=== PATIENT | female | born 1980 | race Caucasian/White ===

== ENCOUNTER 2016-12-31 05:10 | Day surgery (SDC) | payer MEDICAID ==
[2016-12-27 11:30] LABS: HEMOGLOBIN 13.7 g/dL (12.0-15.5); HGB HCT DIFFERENCE 0.1; MEAN CORPUSCULAR HEMOGLOBIN 28.6 pg (27.0-33.4); MEAN CORPUSCULAR HGB CONC 33.3 g/dL (32.0-36.0); MEAN CORPUSCULAR VOLUME 86 fl (80-97); RED BLOOD COUNT 4.78 10^6/uL (3.72-5.28); RED CELL DISTRIBUTION WIDTH 12.9 % (11.5-14.0); WHITE BLOOD COUNT 7.5 10^3/uL (4.0-10.5)
[2016-12-27 11:36] LABS: APPEARANCE,URINE CLEAR; BILIRUBIN,URINE NEGATIVE (NEGATIVE); GLUCOSE, URINE 50 mg/dL (NEGATIVE); KETONES,URINE NEGATIVE (NEGATIVE); LEUKOCYTE ESTERASE,URINE TRACE (NEGATIVE); NITRITE,URINE NEGATIVE (NEGATIVE); PROTEIN,URINE NEGATIVE (NEGATIVE); URINE SPECIFIC GRAVITY 1.024; UROBILINOGEN,URINE NEGATIVE mg/dL (<2.0)
[2016-12-27 11:46] LABS: ANION GAP 14 (5-19); BLOOD UREA NITROGEN 15 mg/dL (7-20); CALCIUM 9.2 mg/dL (8.4-10.2); CARBON DIOXIDE 22 mmol/L (22-30); CHLORIDE 105 mmol/L (98-107); CREATININE RESULT 0.44 mg/dL (0.52-1.25); GLUCOSE 146 mg/dL (75-110); POTASSIUM 4.2 mmol/L (3.6-5.0); SODIUM 140.5 mmol/L (137-145)
--- NOTE | 2016-12-28 00:06 | EKG REPORT ---
SEVERITY:- BORDERLINE ECG - SINUS RHYTHM LVH BY VOLTAGE : Confirmed by: Edmundo Morgan 28-Dec-2016 00:05:08
[~2016-12-31 05:10] MED LIST: CEFAZOLIN 2 GM/D5W RTU 2 GM/50 ML RTUPB IV PRN; LACTATED RINGERS 1000 ML IV PRN; LIDOCAINE 0.5% INJ-PF (5 MG/ML) 50 ML SDV SUBCUT PRN
[2016-12-31] MEDS ORDERED: BUPIVACAINE HCL 0.5 % INJ/PF 30 ML SDV ONE (06:28)
[2016-12-31] MEDS ORDERED: LIDOCAINE 1% INJ-PF (10 MG/ML) 30 ML SDV ONE (06:28)
[2016-12-31] MEDS ORDERED: MIDAZOLAM 2 MG/2 ML INJ ONE (07:22)
[2016-12-31] MEDS ORDERED: FENTANYL CITRATE INJ/PF 100 MCG/2 ML AMPUL ONE (07:22)
[2016-12-31] MEDS ORDERED: DEXMEDETOMIDINE INJ 80 MCG/20 ML VIAL IV ONE (07:22)
[2016-12-31] MEDS ORDERED: PROPOFOL INJ 200 MG/20 ML VIAL IV ONE (07:22)
[2016-12-31] MEDS ORDERED: ONDANSETRON HCL INJ/PF 4 MG/2 ML SDV IV PRN (07:57)
[2016-12-31] MEDS ORDERED: HYDROCODONE/ACETAMINOPHEN 5-325 MG TABLET PO PRN (07:57)
--- NOTE | 2016-12-31 07:57 | Operative Report ---
Operative Report DATE OF SURGERY: 12/31/16 PREOPERATIVE DIAGNOSIS: Left Trigger Thumb POSTOPERATIVE DIAGNOSIS: Same OPERATION: Left Thumb A1 Diane Release SURGEON: ELSA FERRARI ANESTHESIA: LMAC COMPLICATIONS: None ESTIMATED BLOOD LOSS: Minimal PROCEDURE: Indication for above procedure: 36-year-old female presented to my office with debilitating pain in her left thumb at that point we discussed treatment options including operative versus nonoperative intervention. Given her diabetes she is at higher risk of recurrence after corticosteroid injection however she is also higher risk for postoperative complications including infection. Patient understood these increased risks given her medical comorbidities and elected to proceed with operative intervention. Procedure In Detail: Patient was seen and evaluated in the preoperative holding area. The LEFT upper extremity was initialized and marked. Patient received 2g of Ancef IV for bacterial prophylaxis. Patient was taken back to the operative room where transferred to the operative table. Once they were adequately anesthetized a nonsterile tourniquet was placed on the upper extremity. A surgical team debriefing was performed ensuring all instrumentation was available, the surgical procedure was discussed with possible concerns reviewed. A digital block was performed utilizing 10 mL 50:50 mixture of 0.5% Marcaine and 1% lidocaine without epinephrine. The upper extremity was prepped with chlorhexidine and alcohol and draped in a sterile fashion. A timeout was done identifying correct patient, procedure and extremity everyone in attendance agree with this and verbalized no concerns. The extremity was exsanguinated the tourniquet was inflated to 200 mmHg. Longitudinal skin incision was made centered over the A1 diane of the thumb finger. The radial neurovascular bundle was identified and retracted from the wound. The A1 diane was identified and incised. The A1 diane was released to the level of the oblique diane but not through the oblique diane. The palmar aponeurotic diane was released proximal to the A1 diane. 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 The wound was then copiously irrigated with normal saline. Skin was closed with interrupted 4-0 nylon suture. Wound was dressed with Xeroform and a soft dressing. Sponge counts, instrument counts, needle counts counts were correct. Patient was then awoken from anesthesia. Transferred from the operating room table to the operating room stretcher. There was no intraoperative complications patient tolerated procedure well stable to PACU. Postoperative plan: Patient will follow-up as scheduled for wound check. They will call with any questions or concerns.
--- NOTE | 2016-12-31 07:57 | PDOC DISCHARGE SUMMARY ---
Discharge Summary (SDC) - Discharge Final Diagnosis: Left Trigger Thumb Date of Surgery: 12/31/16 Discharge Date: 12/31/16 Condition: Good Treatment or Instructions: Schedule Follow Up w/ Dr. Joseph Hall @ [facility] for Surgery to be seen in 10-14 days or as scheduled [place]: [place]: [place]: May remove dressing on postop day #3 keep incision covered and dry. Ice and elevate May begin finger range of motion attempting to make full fist. Stool softener of choice when on pain medication. Prescriptions: Hydrocodone/Acetaminophen [Alpha 5-325 Tablet] 1 each PO Q6 PRN #20 tablet PRN Reason: Discharge Diet: As Tolerated Respiratory Treatments at Home: Deep Breathing/Coughing Discharge Activity: No Lifting Over 10 Pounds, No Lifting/Push/Pulling Report the Following to Your Physician Immediately: Increase in Pain, Fever over 101 Degrees, Unusual Bleeding, Redness, Swelling, Warmth, Increased Soreness, Drainage-Foul Smelling
[2016-12-31 09:58] VITALS: BP 116/78
[2016-12-31] MEDS ORDERED: ONDANSETRON HCL INJ/PF 4 MG/2 ML SDV ONE (16:11)
[2016-12-31] MEDS ORDERED: LIDOCAINE 2% INJ-PF (20 MG/ML) 10 ML AMPUL ONE (16:11)
[2016-12-31] MEDS ORDERED: GLYCOPYRROLATE INJ 0.4 MG/2 ML VIAL ONE (16:11)
== END 2016-12-31 10:15 | disposition home or self-care (01) ==
LOC: OROUT 05:10
PROVIDERS: ATTEND Orthopaedic Surgery
PROC: 0LN80ZZ Release Left Hand Tendon, Open Approach (ICD-10-PCS; principal; 2016-12-31 07:15)
DX: M65.312 Trigger thumb, left thumb (principal); I10 Essential (primary) hypertension; E11.9 Type 2 diabetes mellitus without complications; E78.00 Pure hypercholesterolemia, unspecified; E66.9 Obesity, unspecified; Z87.891 Personal history of nicotine dependence; Z91.040 Latex allergy status; Z88.8 Allergy status to other drugs, medicaments and biological substances; Z79.82 Long term (current) use of aspirin; Z79.899 Other long term (current) drug therapy; Z86.73 Personal history of transient ischemic attack (TIA), and cerebral infarction without residual deficits; Z68.42 Body mass index [BMI] 45.0-49.9, adult
CPT/HCPCS: 93005; 36415; 82962; 85027; 81025; 80048; 81001; 93010; 26055; J2250; J3010; J3490 ×4; J2405; J2704; J0690; 1810

== ENCOUNTER → 2017-02-15 | Day surgery (SDC) | payer MEDICAID | LOC: RAD 14:41 | PROVIDERS: ATTEND Orthopaedic Surgery | PROC: BP0MZZZ Plain Radiography of Left Wrist (ICD-10-PCS; principal; 2017-02-15) | DX: M25.539 Pain in unspecified wrist (principal) | CPT/HCPCS: 73222; 73115; 77002; A9576 ==

== ENCOUNTER 2017-03-22 06:45 | Day surgery (SDC) | payer MEDICAID ==
[2017-03-15 10:17] LABS: ABSOLUTE BASOPHILS # (AUTO) 0.1 10^3/uL (0.0-0.2); ABSOLUTE EOSINOPHILS # (AUTO) 0.1 10^3/uL (0.0-0.6); ABSOLUTE LYMPHOCYTES (AUTO) 2.2 10^3/uL (0.5-4.7); ABSOLUTE MONOCYTES (AUTO) 0.4 10^3/uL (0.1-1.4); ABSOLUTE NEUT (AUTO) 5.8 10^3/uL (1.7-8.2); BASOPHILS % (AUTO) 0.9 % (0-2); EOSINOPHILS % (AUTO) 1.3 % (0-6); HEMATOCRIT 40.7 % (36.0-47.0); HEMOGLOBIN 13.7 g/dL (12.0-15.5); HGB HCT DIFFERENCE 0.4; LYMPHOCYTES % (AUTO) 25.7 % (13-45); MEAN CORPUSCULAR HEMOGLOBIN 28.3 pg (27.0-33.4); MEAN CORPUSCULAR HGB CONC 33.6 g/dL (32.0-36.0); MEAN CORPUSCULAR VOLUME 84 fl (80-97); MONOCYTES % (AUTO) 4.2 % (3-13); RED BLOOD COUNT 4.84 10^6/uL (3.72-5.28); RED CELL DISTRIBUTION WIDTH 13.5 % (11.5-14.0); SEGMENTED NEUTROPHILS % (AUTO) 67.9 % (42-78); WHITE BLOOD COUNT 8.6 10^3/uL (4.0-10.5)
[2017-03-15 10:26] LABS: APPEARANCE,URINE CLEAR; BILIRUBIN,URINE NEGATIVE (NEGATIVE); GLUCOSE, URINE >=500 mg/dL (NEGATIVE); KETONES,URINE TRACE mg/dL (NEGATIVE); LEUKOCYTE ESTERASE,URINE SMALL (NEGATIVE); NITRITE,URINE NEGATIVE (NEGATIVE); PROTEIN,URINE NEGATIVE (NEGATIVE); URINE SPECIFIC GRAVITY 1.029
[2017-03-15 10:42] LABS: ANION GAP 12 (5-19); BLOOD UREA NITROGEN 14 mg/dL (7-20); CALCIUM 9.5 mg/dL (8.4-10.2); CARBON DIOXIDE 25 mmol/L (22-30); CHLORIDE 101 mmol/L (98-107); CREATININE RESULT 0.48 mg/dL (0.52-1.25); GLUCOSE 263 mg/dL (75-110); POTASSIUM 4.5 mmol/L (3.6-5.0); SODIUM 137.6 mmol/L (137-145)
--- NOTE | 2017-03-15 13:25 | EKG REPORT ---
SEVERITY:- BORDERLINE ECG - SINUS RHYTHM LVH BY VOLTAGE : Confirmed by: Deya Montenegro MD 15-Mar-2017 13:24:52
--- NOTE | 2017-03-15 19:32 | EKG REPORT ---
SEVERITY:- NORMAL ECG - SINUS RHYTHM : Confirmed by: Deya Montenegro MD 15-Mar-2017 19:31:32
[~2017-03-22 06:45] MED LIST changes: -CEFAZOLIN 2 GM/D5W RTU 2 GM/50 ML RTUPB IV PRN; +CEFAZOLIN INJ 1 GM VIAL IV PRN; +VANCOMYCIN HCL 1,000 MG in DEXTROSE 5%-WATER 250 ML IV PRN
[2017-03-22] MEDS ORDERED: BUPIVACAINE HCL 0.5 % INJ/PF 30 ML SDV ONE (07:10)
[2017-03-22] MEDS ORDERED: MIDAZOLAM 2 MG/2 ML INJ ONE (08:46)
[2017-03-22] MEDS ORDERED: FENTANYL CITRATE INJ/PF 250 MCG/5 ML AMPULE ONE (08:46)
[2017-03-22] MEDS ORDERED: ACETAMINOPHEN 100 ML IV ONE (08:47)
[2017-03-22] MEDS ORDERED: PROPOFOL INJ 200 MG/20 ML VIAL IV ONE (08:47)
[2017-03-22] MEDS ORDERED: CEFAZOLIN INJ 1 GM VIAL ONE (08:54)
[2017-03-22] MEDS ORDERED: DIPHENHYDRAMINE HCL 50 MG/ML VIAL IV PRN (09:59)
[2017-03-22] MEDS ORDERED: OXYCODONE-ACETAMINOPHEN 5-325 MG TABLET PO PRN ×3 (09:59→10:44)
[2017-03-22] MEDS ORDERED: MEPERIDINE HCL/PF INJ 25 MG/1 ML DISP.SYRIN IV PRN (09:59)
[2017-03-22] MEDS ORDERED: FENTANYL CITRATE INJ/PF 100 MCG/2 ML AMPUL IV PRN ×3 (09:59)
[2017-03-22] MEDS ORDERED: PROMETHAZINE HCL INJ 25 MG/1 ML VIAL IV PRN ×2 (09:59)
[2017-03-22] MEDS ORDERED: MORPHINE SULFATE 10 MG/ML INJ IV PRN (09:59)
[2017-03-22] MEDS ORDERED: HYDROMORPHONE HCL INJ/PF 2 MG/ML AMPULE IV PRN (10:44)
[2017-03-22] MEDS ORDERED: ONDANSETRON HCL INJ/PF 4 MG/2 ML SDV IV PRN (10:44)
--- NOTE | 2017-03-22 10:45 | PDOC DISCHARGE SUMMARY ---
Discharge Summary (SDC) - Discharge Final Diagnosis: Status post left wrist arthroscopy with debridement/radial styloidectomy, PIN/ AIN Neurectomy Date of Surgery: 03/22/17 Discharge Date: 03/22/17 Condition: Good Treatment or Instructions: Schedule Follow Up w/ Dr. Joseph Hall @ [facility] for Surgery to be seen in 10-14 days or as scheduled [place]: [place]: [place]: Keep splint clean/dry/intact. Ice and elevate May begin finger range of motion attempting to make full fist. Stool softener of choice when on pain medication. Prescriptions: Hydrocodone/Acetaminophen [Conrad 5-325 mg Tablet] 1 tab PO Q6 PRN #40 tablet PRN Reason: Referrals: PILAR RIVERS PA-C [Primary Care Provider] - Respiratory Treatments at Home: Deep Breathing/Coughing Discharge Activity: No Lifting Over 10 Pounds, No Lifting/Push/Pulling Report the Following to Your Physician Immediately: Unusual Bleeding, Redness, Swelling, Warmth, Increased Soreness, Numbness, Tingling Sensation
--- NOTE | 2017-03-22 10:53 | Operative Report ---
Operative Report DATE OF SURGERY: 03/22/17 PREOPERATIVE DIAGNOSIS: Left radiocarpal arthritis, wrist pain POSTOPERATIVE DIAGNOSIS: Grade 2 radiocarpal arthritis radiolunate joint, grade III/IV radioscaphoid articulation. OPERATION: Left wrist arthroscopy with debridement, radial styloidectomy, PIN/ AIN Neurectomy SURGEON: ELSA FERRARI ANESTHESIA: GA COMPLICATIONS: None ESTIMATED BLOOD LOSS: Minimal PROCEDURE: Indication for above procedure: Patient sustained a previous left wrist injury has underwent multiple procedures including an apparent bone grafting of her scaphoid and ultimately years later debridement. Patient states she had been doing well after the recent debridement now her pain is slowly returned. It is worse with activities. We have tried activity modification and anti-inflammatories without resolution. MRI was ordered demonstrating postsurgical changes no definitive ligamentous abnormality. At that point we discussed treatment options I recommended diagnostic arthroscopy of the left wrist unfortunately this may be the initial procedure of a later larger procedure depending on intraoperative findings. Also discussed neurectomies which may provide her relief. After discussing risks and benefits of the operative procedure patient verbalized understanding consented for the procedure. Procedure In Detail: Patient was seen and evaluated in the preoperative holding area. The LEFT upper extremity was initialized and marked. Patient received 2g of Ancef IV for bacterial prophylaxis. Patient was taken back to the operative room where transferred to the operative table and placed under general anesthesia. Once they were adequately anesthetized a nonsterile tourniquet was placed on the upper extremity. A surgical team debriefing was performed ensuring all instrumentation was available, the surgical procedure was discussed with possible concerns reviewed. The upper extremity was prepped with chlorhexidine and alcohol and draped in a sterile fashion. A timeout was done identifying correct patient, procedure and extremity everyone in attendance agree with this and verbalized no concerns. Patient was placed in the [facility] wrist arthroscopy tower with approximately 12 pounds of traction. The extremity was exsanguinated the tourniquet was inflated to 250 mmHg. A 3-4 portal was established blunt dissection was performed with a hemostat to the radial carpal joint. The arthroscope was introduced. Dry arthroscopy was performed demonstrating fraying of the radiolunate and radioscaphoidcapitate ligaments. There was grade 3/4 degenerative changes of the radial scaphoid articulation. There was fissuring along the radiolunate articulation. No disruption of the members portion of scapholunate ligament was appreciated. Via triangulation a 4-5 portal was established dissection with a hemostat was done bluntly and a probe introduced. There was good ballottement of the TFCC when probed. No evidence of lunate or triquetrum degenerative changes. Mild synovitis along the ulnar aspect of the joint. Moderate synovitis along the radial scaphoid articulation. The arthroscopic shaver was then introduced into the joint and a partial synovectomy was performed along the radial side and ulnar side of the joint. Chondroplasty was performed to the radius at the radial lunate articulation. Degenerative changes at the styloid were identified and debridement. I then established a 1-to portal blunt dissection was performed and the arthroscopic bur was introduced. A radial styloidectomy was performed removing approximately 4 mm of bone preserving the attachments of the radioscaphoidcapitate ligament. C-arm was utilized to confirm appropriate resection of the radial styloid. Debridement of the radial styloid and ceramic soft tissue was done done with a ablator until smooth transition and no remaining fraying were confirmed. I then turned my attention to the midcarpal joint. A radial midcarpal portal was established blunt dissection performed a hemostat and the arthroscope introduced. Via triangulation a ulnar carpal portal was established with blunt dissection and the shaver introduced. Probing of the scapholunate articulation demonstrate no evidence of widening. There was minimal degenerative changes of the midcarpal joint. Probing of the lunotriquetral articulation demonstrated no evidence of widening or instability. Minimal degenerative changes of the triquetral hamate articulation. There was mild synovitis along the triquetral hamate articulation and a partial synovectomy was performed. I then released traction and internal my attention to the PIN/AIN neurectomy. Proximal to the DRUJ a 4 cm incision was made. Blunt dissection was performed and a peripheral vasculature was coagulated with bipolar cautery. The fourth dorsal compartment was identified and retracted in a radial direction. Along the floor of the fourth dorsal compartment the posterior interosseous nerve was identified 1 cm the posterior interosseous nerve was then excised. A 2 cm longitudinal incision was then made into the interosseous membrane deep to the interosseous membrane the anterior interosseous nerve and artery were identified. 1 cm of the anterior intraosseous nerve was excised with bipolar cautery. Any remaining bleeding was then coagulated with bipolar cautery. The wound was copiously irrigated with normal saline. Skin was closed a running subcuticular 4-0 Monocryl and the portal incisions were closed with subcuticular 4-0 Monocryl. 20 mL of 0.5% Marcaine without epinephrine was injected for postoperative pain control. Incisions were reinforced with Dermabond and Steri-Strips. Patient was placed in a dorsal blocking splint and tourniquet was deflated. Sponge counts, instrument counts, needle counts counts were correct. Patient was then awoken from anesthesia. Transferred from the operating room table to the operating room stretcher. There was no intraoperative complications patient tolerated procedure well stable to PACU. Postoperative plan: Patient will follow-up in the office in 2 weeks at which point we will proceed with wound check and she will begin gentle range of motion of the wrist.
[2017-03-22] MEDS ORDERED: ONDANSETRON HCL INJ/PF 4 MG/2 ML SDV ONE ×2 (11:03→14:06)
[2017-03-22] MEDS ORDERED: KETOROLAC TROMETHAMINE INJ/PF 30 MG/1 ML SDV ONE (11:36)
[2017-03-22] MEDS ORDERED: SUCCINYLCHOLINE CHLORIDE INJ 200 MG/10 ML VIAL ONE (14:06)
[2017-03-22] MEDS ORDERED: LIDOCAINE 2% INJ-PF (20 MG/ML) 10 ML AMPUL ONE (14:06)
[2017-03-22] MEDS ORDERED: ROCURONIUM BROMIDE INJ 50 MG/5 ML VIAL IV ONE (14:06)
[2017-03-22] MEDS ORDERED: GLYCOPYRROLATE INJ 0.4 MG/2 ML VIAL ONE (14:06)
[2017-03-22] MEDS ORDERED: NEOSTIGMINE METHYLSULFATE 10 MG/10 ML VIAL ONE (14:06)
[2017-03-22] MEDS ORDERED: DEXAMETHASONE SOD PHOSPHATE INJ 4 MG/1 ML VIAL ONE (14:06)
[2017-03-22 14:21] VITALS: BP 136/76
== END 2017-03-22 13:02 | disposition home or self-care (01) ==
LOC: OROUT 06:45
PROVIDERS: ATTEND Orthopaedic Surgery
PROC: 0RBP4ZZ Excision of Left Wrist Joint, Percutaneous Endoscopic Approach (ICD-10-PCS; 2017-03-22)
PROC: 01B64ZZ Excision of Radial Nerve, Percutaneous Endoscopic Approach (ICD-10-PCS; principal; 2017-03-22 08:45)
DX: M18.52 Other unilateral secondary osteoarthritis of first carpometacarpal joint, left hand (principal); I10 Essential (primary) hypertension; E78.00 Pure hypercholesterolemia, unspecified; Z96.41 Presence of insulin pump (external) (internal); S63.522A Sprain of radiocarpal joint of left wrist, initial encounter; X58.XXXA Exposure to other specified factors, initial encounter; M65.832 Other synovitis and tenosynovitis, left forearm; G43.909 Migraine, unspecified, not intractable, without status migrainosus; E10.9 Type 1 diabetes mellitus without complications; Z88.8 Allergy status to other drugs, medicaments and biological substances; Z79.82 Long term (current) use of aspirin; Z79.899 Other long term (current) drug therapy; Z86.73 Personal history of transient ischemic attack (TIA), and cerebral infarction without residual deficits; Z91.040 Latex allergy status; Z79.4 Long term (current) use of insulin; Z87.891 Personal history of nicotine dependence
CPT/HCPCS: 93005 ×2; 36415; 82962; 85025; 81025; 80048; 81001; 83036; 71020; 73100; 93010 ×2; 64772; 21499; 29846; J2250; J0690; J3490 ×3; J1100; J3010; J1885; J0330; J2405; J7060; J2704; J3370; J0131; 01830

== ENCOUNTER 2017-04-01 12:02 | Emergency (ER) | payer MEDICAID ==
[2017-04-01] MEDS ORDERED: ACETAMINOPHEN 325 MG TABLET PO ONE (12:16)
--- NOTE | 2017-04-01 12:27 | ER Document Report ---
ED General - General Chief Complaint: Headache Stated Complaint: AMS Time seen by provider: 12:05 Mode of Arrival: Medic Information source: Patient Notes: 36-year-old female complains about left-sided headache stuttering and left- sided chest pain typical for what she's had many times in the past which carries a diagnosis of TIA patient reports being followed by [facility] brothers and Ar[facility] for this and has had prior workups including MRI with no specific etiology having been found. The patient reports there is nothing new or different about this presentation compared what she's had many times in the past. She denies any numbness weakness to any extremity. She does report some difficulty with pain in the left wrist and hand after having had recent surgery on nerve of the left wrist. Patient reports being in normal state of health otherwise recently. Physical Exam: General: Alert, appears well. HEENT: Normocephalic. Atraumatic. PERRLA. Extraocular movements intact. Tympanic Membranes and canals clear Oropharynx clear. Neck: Supple. Non-tender. No JVD no carotid bruits Respiratory: No respiratory distress. Clear and equal breath sounds bilaterally. Cardiovascular: Regular rate and rhythm. PMI not displaced Abdominal: Normal Inspection. Soft, non-tender. No distension. Normal Bowel Sounds. Back: Non-tender. No deformity or step off. Extremities warm to plus pulses no cyanosis no edema no Homans sign Steri- Strips in place small incisions on the dorsal portion of the left forearm Neurological: Patient has some stuttering with her speech but is not garbled or slurred. 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 Motor function is 5 out of 5 and equal both lower extremities patient has slight drooping to the left lower face. Psychological: Normal affect. Normal Mood. Skin: Warm. Dry. Normal color. TRAVEL OUTSIDE OF THE [place] IN LAST 30 DAYS: No - Related Data Allergies/Adverse Reactions: adhesive tape [Adhesive Tape] Allergy (Severe, Verified 04/01/17 13:48) Generalized Itching haloperidol [From Haldol] Allergy (Severe, Verified 04/01/17 13:48) "Panic attack" prochlorperazine maleate [From Compazine] Allergy (Severe, Verified 04/01/17 13: 48) Shortness of breath latex [Latex] Allergy (Intermediate, Verified 04/01/17 13:48) Hives morphine Adverse Reaction (Severe, Verified 04/01/17 13:48) ? metoclopramide HCl [From Reglan] Adverse Reaction (Intermediate, Verified 13:48) "spazed out" Past Medical History - Social History Smoking Status: Never Smoker Family History: Reviewed & Not Pertinent - Past Medical History Cardiac Medical History: Reports: Hx Hypercholesterolemia, Hx Hypertension Denies: Hx Coronary Artery Disease - high cholesterol, Hx Heart Attack Pulmonary Medical History: Reports: Hx Asthma - as child Denies: Hx Bronchitis, Hx COPD, Hx Pneumonia Neurological Medical History: Reports: Hx Migraine. Denies: Hx Cerebrovascular Accident, Hx Seizures Endocrine Medical History: Reports: Hx Diabetes Mellitus Type 2 GI Medical History: Musculoskeltal Medical History: Reports Hx Arthritis - BILATERAL WRIST, Hips Psychiatric Medical History: Reports: Hx Depression Infectious Medical History: Past Surgical History: Reports: Hx Abdominal Surgery - , Hx Appendectomy, Hx Bowel Surgery, Hx Cholecystectomy, Hx Tonsillectomy, Hx Tubal Ligation. Denies: Hx Pacemaker - Immunizations Hx Diphtheria, Pertussis, Tetanus Vaccination: Yes - 2016 Review of Systems - Review of Systems Constitutional: denies: Chills, Fever EENT: denies: Ear pain, Nose pain, Throat pain Cardiovascular: Chest pain. denies: Dyspnea Respiratory: denies: Cough, Short of breath, Wheezing Gastrointestinal: denies: Abdominal pain, Diarrhea, Nausea, Vomiting, Blood in vomit, Black stools, Rectal bleeding Genitourinary: denies: Burning, Dysuria Female Genitourinary: denies: Musculoskeletal: denies: Back pain, Leg swelling Skin: denies: Rash Hematologic/Lymphatic: denies: Swollen glands Neurological/Psychological: See HPI Physical Exam - Vital signs Vitals: Pulse Resp BP Pulse Ox 86 18 126/87 H 96 04/01/17 12:14 04/01/17 12:14 04/01/17 12:14 04/01/17 12:14 Course - Re-evaluation Re-evalutation: 04/01/17 15:13 Patient's neurologic examination is unchanged. She is complaining of a continued headache. She reports this presentation is identical what she's had many times in the past that she says Dr. Pompa has diagnosed as TIA. She does have left upper extremity weakness and mild left facial droop this was also noted to presentation last month and appears unchanged find no evidence to suggest that this is something new or different compared to the patient's chronic presentations believe she is safe for discharge with outpatient follow- up 04/01/17 16:41 - Vital Signs Vital signs: Temp Pulse Resp BP Pulse Ox 86 25 H 123/88 H 98 04/01/17 12:14 04/01/17 13:32 04/01/17 13:32 04/01/17 13:32 - Laboratory Result Diagrams: 04/01/17 12:37 04/01/17 12:37 Laboratory results interpreted by me: 04/01/17 12:37 Creatinine 0.43 L Glucose 187 H AST 59 H - Diagnostic Test Radiology reviewed: Image reviewed, Reports reviewed Discharge - Discharge Clinical Impression: Headache Qualifiers: Headache type: unspecified Headache chronicity pattern: acute headache Intractability: not intractable Qualified Code(s): R51 - Headache Condition: Stable Disposition: HOME, SELF-CARE Additional Instructions: Headache The physician does not feel that the headache you are experiencing has a serious underlying cause. Most headaches are due to emotional stress, with resultant muscle tension (tension headache). Occasionally, headaches are secondary to changes in the blood vessels of the scalp (vascular headache and migraine headache). Sometimes, a headache is the first symptom of another developing illness, such as a viral infection. You have no evidence of stroke, bleeding, meningitis, or other serious cause of your headache. The treatment of headaches varies with the severity and cause of the pain. Not all headaches need pain shots. In fact, there is evidence that using narcotics for headaches may make them worse in the long run. The physician will determine the therapy that's in your best interest. If you develop a fever, if the headache is different from any you've previously experienced, or if the headache progressively worsens, then call your physician at once or go to the emergency room. Referrals: TAHIR JACKSON FNP-C [Primary Care Provider] - Follow up in 1 week MARY ALICE POMPA MD [ACTIVE STAFF] - Follow up in 1 week
[2017-04-01 12:50] LABS: HEMATOCRIT 43.9 % (36.0-47.0); HEMOGLOBIN 14.7 g/dL (12.0-15.5); HGB HCT DIFFERENCE 0.2; MEAN CORPUSCULAR HEMOGLOBIN 28.4 pg (27.0-33.4); MEAN CORPUSCULAR HGB CONC 33.5 g/dL (32.0-36.0); MEAN CORPUSCULAR VOLUME 85 fl (80-97); RED CELL DISTRIBUTION WIDTH 13.4 % (11.5-14.0); WHITE BLOOD COUNT 7.5 10^3/uL (4.0-10.5)
[2017-04-01 12:56] LABS: PARTIAL THROMBOPLASTIN TIME 25.2 SEC (23.5-35.8); PROTHROMBIN TIME 12.9 SEC (11.4-15.4)
[2017-04-01 13:13] LABS: ALANINE AMINOTRANSFERASE 48 U/L (9-52); ALBUMIN 4.2 g/dL (3.5-5.0); ALKALINE PHOSPHATASE 70 U/L (38-126); ANION GAP 15 (5-19); ASPARTATE AMINO TRANSFERASE 59 U/L (14-36); BILIRUBIN,DIRECT 0.4 mg/dL (0.0-0.4); BILIRUBIN,TOTAL 0.7 mg/dL (0.2-1.3); BLOOD UREA NITROGEN 11 mg/dL (7-20); CALCIUM 9.6 mg/dL (8.4-10.2); CARBON DIOXIDE 22 mmol/L (22-30); CHLORIDE 103 mmol/L (98-107); CREATINE KINASE 84 U/L (30-135); CREATININE RESULT 0.43 mg/dL (0.52-1.25); GLUCOSE 187 mg/dL (75-110); POTASSIUM 4.5 mmol/L (3.6-5.0); SODIUM 139.6 mmol/L (137-145); TOTAL PROTEIN 7.1 g/dL (6.3-8.2)
[2017-04-01 13:23] LABS: CREATINE KINASE MB 0.43 ng/mL (<4.55)
[2017-04-01 13:24] LABS: BASOPHILS % (MANUAL) 1 % (0-2); EOSINOPHILS % (MANUAL) 2 % (0-6); LYMPHOCYTES % (MANUAL) 22 % (13-45); PLATELET CLUMPS PRESENT; RBC MORPHOLOGY COMMENT NORMO-CYTIC/CHROMIC; TOTAL CELLS COUNTED 100
[2017-04-01 13:26] LABS: TROPONIN I < 0.012 ng/mL
[2017-04-01] MEDS ORDERED: ONDANSETRON HCL INJ/PF 4 MG/2 ML SDV IV ONE (15:14)
[2017-04-01] MEDS ORDERED: BUTALB/ACETAMINOPHEN/CAFFEINE 1 TAB EACH PO ONE (15:17)
[2017-04-01 17:30] VITALS: BP 124/90
--- NOTE | 2017-04-01 18:59 | EKG REPORT ---
SEVERITY:- BORDERLINE ECG - SINUS RHYTHM LVH BY VOLTAGE : Confirmed by: Anirudh Leon MD 01-Apr-2017 18:58:27
== END 2017-04-01 17:20 | disposition home or self-care (01) ==
LOC: ER 12:02
DX: R51 Headache (principal); R07.9 Chest pain, unspecified; I10 Essential (primary) hypertension; E78.00 Pure hypercholesterolemia, unspecified; E11.9 Type 2 diabetes mellitus without complications; Z88.6 Allergy status to analgesic agent; Z91.040 Latex allergy status; Z90.49 Acquired absence of other specified parts of digestive tract; Z86.73 Personal history of transient ischemic attack (TIA), and cerebral infarction without residual deficits
CPT/HCPCS: 93005; 99285; 96374; 36415; 82553; 82550; 84703; 85025; 85610; 85730; 80053; 84484; 71010; 70450; 93010; J3490 ×2; J2405

== ENCOUNTER 2017-05-29 10:21 | Emergency (ER) | payer MEDICAID ==
[2017-05-29 10:32] VITALS: BP 137/85
[2017-05-29] MEDS ORDERED: IBUPROFEN 600 MG TABLET PO ONE (10:46)
--- NOTE | 2017-05-29 10:49 | ER Document Report ---
ED Hand/Wrist Injury - General Chief Complaint: Hand Pain Stated Complaint: RIGHT HAND INJURY Time Seen by Provider: 05/29/17 10:42 Notes: Patient is a 36-year-old female who presents with right hand and forearm pain after she backhanded a brick wall 5 days ago. She is ambidextrous and works at [employer]. She denies numbness, tingling or open wounds. TRAVEL OUTSIDE OF THE [place] IN LAST 30 DAYS: No - Related Data Allergies/Adverse Reactions: adhesive tape [Adhesive Tape] Allergy (Severe, Verified 05/29/17 10:28) Generalized Itching haloperidol [From Haldol] Allergy (Severe, Verified 05/29/17 10:28) "Panic attack" prochlorperazine maleate [From Compazine] Allergy (Severe, Verified 05/29/17 10: 28) Shortness of breath latex [Latex] Allergy (Intermediate, Verified 05/29/17 10:28) Hives morphine Adverse Reaction (Severe, Verified 05/29/17 10:28) ? metoclopramide HCl [From Reglan] Adverse Reaction (Intermediate, Verified 10:28) "spazed out" Past Medical History - General Information source: Patient - Social History Smoking Status: Unknown if Ever Smoked Family History: Reviewed & Not Pertinent Patient has suicidal ideation: No Patient has homicidal ideation: No - Past Medical History Cardiac Medical History: Reports: Hx Hypercholesterolemia, Hx Hypertension Denies: Hx Coronary Artery Disease - high cholesterol, Hx Heart Attack Pulmonary Medical History: Reports: Hx Asthma - as child Denies: Hx Bronchitis, Hx COPD, Hx Pneumonia Neurological Medical History: Reports: Hx Migraine. Denies: Hx Cerebrovascular Accident, Hx Seizures Endocrine Medical History: Reports: Hx Diabetes Mellitus Type 2 Renal/ Medical History: Denies: Hx Peritoneal Dialysis GI Medical History: Musculoskeltal Medical History: Reports Hx Arthritis - BILATERAL WRIST, Hips Psychiatric Medical History: Reports: Hx Depression Infectious Medical History: Past Surgical History: Reports: Hx Abdominal Surgery - , Hx Appendectomy, Hx Bowel Surgery, Hx Cholecystectomy, Hx Hysterectomy - novasure procedure, Hx Tonsillectomy, Hx Tubal Ligation. Denies: Hx Pacemaker - Immunizations Hx Diphtheria, Pertussis, Tetanus Vaccination: Yes - 2016 Review of Systems - Review of Systems Notes: REVIEW OF SYSTEMS: CONSTITUTIONAL: -fevers, -chills EENT: -eye pain, -difficulty swallowing, -nasal congestion CARDIOVASCULAR:-chest pain, -syncope. RESPIRATORY: -cough, -SOB GASTROINTESTINAL: -abdominal pain, - nausea, -vomiting, -diarrhea GENITOURINARY: -dysuria, -hematuria MUSCULOSKELETAL: +right hand and wrist pain, -back pain, -neck pain SKIN: -rash or skin lesions. HEMATOLOGIC: -easy bruising or bleeding. LYMPHATIC: -swollen, enlarged glands. NEUROLOGICAL: -altered mental status or loss of consciousness, -headache, - neurologic symptoms PSYCHIATRIC: -anxiety, -depression. ALL OTHER SYSTEMS REVIEWED AND NEGATIVE. Physical Exam - Vital signs Vitals: Temp Pulse Resp BP Pulse Ox 98.4 F 77 16 137/85 H 98 05/29/17 10:28 05/29/17 10:28 05/29/17 10:28 05/29/17 10:05/29/17 10:28 - Notes Notes: PHYSICAL EXAMINATION: GENERAL: Well-appearing, well-nourished and in no acute distress. HEAD: Atraumatic, normocephalic. EYES: Pupils equal round and reactive to light, extraocular movements intact, sclera anicteric, conjunctiva are normal. ENT: nares patent, oropharynx clear without exudates. Moist mucous membranes. NECK: Normal range of motion, supple without lymphadenopathy LUNGS: Breath sounds clear to auscultation bilaterally and equal. No wheezes rales or rhonchi. HEART: Regular rate and rhythm without murmurs ABDOMEN: Soft, nontender, normoactive bowel sounds. No guarding, no rebound. No masses appreciated. EXTREMITIES: Tenderness of right snuffbox and right dorsum of the hand, tenderness of the right distal radius, normal range of motion, no pitting or edema. No cyanosis. NEUROLOGICAL: Cranial nerves grossly intact. Normal speech, normal gait. Normal sensory and motor exams. PSYCH: Normal mood, normal affect. SKIN: Warm, Dry, normal turgor, no rashes or lesions noted. Course - Re-evaluation Re-evalutation: Patient does not have any evidence of fractures of her forearm or hand. She does have snuffbox tenderness, so will place patient in a thumb spica splint for possible scaphoid fracture and have her follow-up with a hand surgeon for recheck of her symptoms. Pt understands plan. - Vital Signs Vital signs: Temp Pulse Resp BP Pulse Ox 98.4 F 77 16 137/85 H 98 05/29/17 10:28 05/29/17 10:28 05/29/17 10:28 05/29/17 10:28 05/29/17 10:28 - Diagnostic Test Radiology reviewed: Image reviewed, Reports reviewed Radiology results interpreted by me: Right forearm and hand: NAD Procedures - Immobilization Right Hand Time completed: 11:24 Pre-Proc Neuro Vasc Exam: Normal Immobilizer type: Thumb spica Performed by: PCT Post-Proc Neuro Vasc Exam: Normal Alignment checked and good: Yes Discharge - Discharge Clinical Impression: Contusion of hand, right Qualifiers: Encounter type: initial encounter Qualified Code(s): S60.221A - Contusion of right hand, initial encounter Condition: Good Disposition: HOME, SELF-CARE Additional Instructions: You may have a fracture of the scaphoid bone. Keep your splint in place until you follow-up with a hand surgeon. Your x-rays do not show any evidence of fractures of your forearm or hand at this time. Motrin for any pain. Referrals: ELSA FERRARI DO [ACTIVE STAFF] - Follow up as needed
--- NOTE | 2017-05-29 11:13 | RADIOLOGY REPORT (SQ) ---
EXAM DESCRIPTION: HAND RIGHT 3 VIEWS COMPLETED DATE/TIME: 05/29/2017 11:04 am REASON FOR STUDY: right hand injury COMPARISON: None. EXAM PARAMETERS: NUMBER OF VIEWS: Three views. TECHNIQUE: AP, lateral and oblique radiographic images acquired of the right hand. LIMITATIONS: None. FINDINGS: MINERALIZATION: Normal. BONES: No acute fracture or dislocation. No worrisome bone lesions. JOINTS: No effusions. SOFT TISSUES: No soft tissue swelling. No foreign body. OTHER: No other significant finding. IMPRESSION: NEGATIVE STUDY OF THE RIGHT HAND. NO RADIOGRAPHIC EVIDENCE OF ACUTE INJURY. TECHNICAL DOCUMENTATION: JOB ID: [id number] [employer]- All Rights Reserved
--- NOTE | 2017-05-29 11:13 | RADIOLOGY REPORT (SQ) ---
EXAM DESCRIPTION: FOREARM RIGHT COMPLETED DATE/TIME: 05/29/2017 11:04 am REASON FOR STUDY: right forearm pain COMPARISON: None. NUMBER OF VIEWS: Two views. TECHNIQUE: Two radiographic images acquired of the right forearm, including elbow and wrist in at le ast one projection. LIMITATIONS: None. FINDINGS: MINERALIZATION: Normal. BONES: No acute fracture. No worrisome bone lesions. SOFT TISSUES: No obvious swelling or foreign body. OTHER: No other significant finding. IMPRESSION: NEGATIVE STUDY OF THE RIGHT FOREARM. NO RADIOGRAPHIC EVIDENCE OF ACUTE INJURY. TECHNICAL DOCUMENTATION: JOB ID: [id number] [employer]- All Rights Reserved
== END 2017-05-29 11:35 | disposition home or self-care (01) ==
LOC: ER 10:21
PROC: 2W3CX1Z Immobilization of Right Lower Arm using Splint (ICD-10-PCS; principal; 2017-05-29)
DX: S60.221A Contusion of right hand, initial encounter (principal); W22.01XA Walked into wall, initial encounter; M79.631 Pain in right forearm; M79.641 Pain in right hand; I10 Essential (primary) hypertension; E11.9 Type 2 diabetes mellitus without complications; Z88.8 Allergy status to other drugs, medicaments and biological substances; Z91.040 Latex allergy status; Z91.048 Other nonmedicinal substance allergy status
CPT/HCPCS: 99283

== ENCOUNTER 2017-07-28 16:03 | Emergency (ER) | payer MEDICAID ==
--- NOTE | 2017-07-28 16:23 | ER Document Report ---
ED Medical Screen (RME) - General Chief Complaint: Slurred Speech Stated Complaint: FLU LIKE SYMPTOMS Time Seen by Provider: 07/28/17 16:21 Mode of Arrival: Wheelchair Information source: Patient Notes: This is a 36-year-old female with a history of diabetes, dyslipidemia, TIAs and migraines in the past. Patient states she was usual state of health and works at [employer] and that coworkers started to notice that the patient was getting flushed and beginning to stutter. Patient states that she has had TIAs in the past where she has had headache and numbness and began to stutter. She states that she does not feel the same this time. She does not have a headache and does not have any numbness. She does appear weak and does appear to be stuttering somewhat in triage. On physical exam: Patient has no focal weakness and there is no sensory deficit. TRAVEL OUTSIDE OF THE [place] IN LAST 30 DAYS: No - Related Data Allergies/Adverse Reactions: adhesive tape [Adhesive Tape] Allergy (Severe, Verified 07/28/17 16:09) Generalized Itching haloperidol [From Haldol] Allergy (Severe, Verified 07/28/17 16:09) "Panic attack" prochlorperazine maleate [From Compazine] Allergy (Severe, Verified 07/28/17 16: 09) Shortness of breath latex [Latex] Allergy (Intermediate, Verified 07/28/17 16:09) Hives morphine Adverse Reaction (Severe, Verified 07/28/17 16:09) ? metoclopramide HCl [From Reglan] Adverse Reaction (Intermediate, Verified 16:09) "spazed out" Past Medical History - Past Medical History Cardiac Medical History: Reports: Hx Hypercholesterolemia, Hx Hypertension Denies: Hx Coronary Artery Disease - high cholesterol, Hx Heart Attack Pulmonary Medical History: Reports: Hx Asthma - as child Denies: Hx Bronchitis, Hx COPD, Hx Pneumonia Neurological Medical History: Reports: Hx Migraine. Denies: Hx Cerebrovascular Accident, Hx Seizures Endocrine Medical History: Reports: Hx Diabetes Mellitus Type 2 Renal/ Medical History: Denies: Hx Peritoneal Dialysis GI Medical History: Musculoskeltal Medical History: Reports Hx Arthritis - BILATERAL WRIST, Hips Psychiatric Medical History: Reports: Hx Depression Infectious Medical History: Past Surgical History: Reports: Hx Abdominal Surgery - , Hx Appendectomy, Hx Bowel Surgery, Hx Cholecystectomy, Hx Hysterectomy - novasure procedure, Hx Tonsillectomy, Hx Tubal Ligation. Denies: Hx Pacemaker - Immunizations Hx Diphtheria, Pertussis, Tetanus Vaccination: Yes - 2016 Physical Exam - Vital signs Vitals: Temp Pulse Resp BP Pulse Ox 98.1 F 99 18 121/76 99 07/28/17 16:08 07/28/17 16:08 07/28/17 16:08 07/28/17 16:08 07/28/17 16:08 Course - Vital Signs Vital signs: Temp Pulse Resp BP Pulse Ox 98.1 F 99 18 121/76 99 07/28/17 16:08 07/28/17 16:08 07/28/17 16:08 07/28/17 16:08 07/28/17 16:08
--- NOTE | 2017-07-28 16:54 | ER Document Report ---
ED General - General Mode of Arrival: Wheelchair Information source: Patient TRAVEL OUTSIDE OF THE [place].S[place] IN LAST 30 DAYS: No - HPI Onset: Other - Refer to HPI Similar symptoms previously: No Recently seen / treated by doctor: No <SHAHEED HINES - Last Filed: 07/28/17 18:12> <OCTAVIO FORTUNE - Last Filed: 07/28/17 21:01> - General Chief Complaint: Slurred Speech Stated Complaint: FLU LIKE SYMPTOMS Time Seen by Provider: 07/28/17 16:53 - HPI Notes: Patient is a 36-year-old female presented emergency department with stuttering speech and feeling flushed at work. Patient works at [employer] and the symptoms onset just prior to arrival while she was at work. Patient has a history of previous TIA, migraines, hyperglycemia/diabetes, and dyslipidemia. Patient states that when she has previously had TIA she usually has headache and numbness and then stuttering of her speech. Patient states that this episode does not feel the same because she does not have a headache or numbness. Patient states she has also had a difficult time remembering different things during this episode. Patient states that she has been told previously that her TIAs are possibly related to migraines or her blood glucose levels not being controlled. Patient's PCP is Mel in [place]. Patient sees Dr. Santiago, trout farmer in [place] for her hyperglycemia/diabetes. According to the [place] Controlled Substance Reporting System the patient is prescribed Percocet 5 mg x 4 per day. (SHAHEED HINES) - Related Data Allergies/Adverse Reactions: adhesive tape [Adhesive Tape] Allergy (Severe, Verified 07/28/17 16:09) Generalized Itching haloperidol [From Haldol] Allergy (Severe, Verified 07/28/17 16:09) "Panic attack" prochlorperazine maleate [From Compazine] Allergy (Severe, Verified 07/28/17 16: 09) Shortness of breath latex [Latex] Allergy (Intermediate, Verified 07/28/17 16:09) Hives morphine Adverse Reaction (Severe, Verified 07/28/17 16:09) ? metoclopramide HCl [From Reglan] Adverse Reaction (Intermediate, Verified 16:09) "spazed out" Past Medical History - General Information source: Patient - Social History Smoking Status: Never Smoker Chew tobacco use (# tins/day): No Frequency of alcohol use: None Drug Abuse: None Family History: None Patient has suicidal ideation: No Patient has homicidal ideation: No - Past Medical History Cardiac Medical History: Reports: Hx Hypercholesterolemia, Hx Hypertension Pulmonary Medical History: Reports: Hx Asthma - as child Neurological Medical History: Reports: Hx Cerebrovascular Accident - Multiple TIAs, Hx Migraine Endocrine Medical History: Reports: Hx Diabetes Mellitus Type 2 GI Medical History: Musculoskeltal Medical History: Reports Hx Arthritis - BILATERAL WRIST, Hips Psychiatric Medical History: Reports: Hx Depression Infectious Medical History: Past Surgical History: Reports: Hx Abdominal Surgery - , Hx Appendectomy, Hx Bowel Surgery, Hx Cholecystectomy, Hx Hysterectomy - novasure procedure, Hx Tonsillectomy, Hx Tubal Ligation - Immunizations Hx Diphtheria, Pertussis, Tetanus Vaccination: Yes - 2015 <SHAHEED HINES - Last Filed: 07/28/17 18:12> Review of Systems - Review of Systems Constitutional: See HPI, Other - Feeling flushed EENT: No symptoms reported Cardiovascular: No symptoms reported Respiratory: No symptoms reported Gastrointestinal: No symptoms reported Genitourinary: No symptoms reported Female Genitourinary: No symptoms reported Musculoskeletal: No symptoms reported Skin: No symptoms reported Hematologic/Lymphatic: No symptoms reported Neurological/Psychological: See HPI, Speech impairment - Stuttering -: Yes All other systems reviewed and negative <SHAHEED HINES - Last Filed: 07/28/17 18:12> Physical Exam - Vital signs Interpretation: Normal <SHAHEED HINES - Last Filed: 07/28/17 18:12> <OCTAVIO FORTUNE - Last Filed: 07/28/17 21:01> - Vital signs Vitals: Temp Pulse Resp BP Pulse Ox 98.1 F 99 18 121/76 99 07/28/17 16:08 07/28/17 16:08 07/28/17 16:08 07/28/17 16:08 07/28/17 16:08 - Notes Notes: GENERAL: Alert, interacts well. Mild distress. HEAD: Normocephalic, atraumatic, cheeks are quite flushed. EYES: Appear normal. Pupils equal, round, and reactive to light. ENT: Moist mucus membranes, tongue midline. NECK: Full range of motion. Supple. Trachea midline. No carotid bruits. LUNGS: Clear to auscultation bilaterally, no wheezes, rales, or rhonchi. No respiratory distress. HEART: Regular rate and rhythm. No murmurs, gallops, or rubs. ABDOMEN: Obese. Soft, non-tender. Non-distended. Normal bowel sounds. EXTREMITIES: Moves all 4 extremities spontaneously. Normal strength. No edema. NEUROLOGICAL: Alert and oriented x3. Stuttering speech. No focal neurological deficits. GSC 15. PSYCH: Normal affect, normal mood. SKIN: Warm, dry, normal turgor. No rashes or lesions noted. (SHAHEED HINES) Course <SHAHEED HINES - Last Filed: 07/28/17 18:12> - Laboratory Result Diagrams: 07/28/17 16:20 07/28/17 16:20 - Diagnostic Test Radiology reviewed: Image reviewed, Reports reviewed - Brain CT is normal, chest x-ray is normal. <OCTAVIO FORTUNE - Last Filed: 07/28/17 21:01> - Re-evaluation Re-evalutation: 07/28/17 20:58 By the patient's history she has had perhaps 15 of these episodes in the last 15 years. She states the stuttering usually lasts for about a week when she gets these spells. Her doctor had prescribed Topamax to treat this thinking it was migraine related. She has had multiple CT scans and MRIs which do not demonstrate abnormalities. CT scan of the head done earlier today was unremarkable, lab work is unremarkable. Patient will be discharged home to rest and follow-up with her primary care provider. (OCTAVIO FORTUNE) - Vital Signs Vital signs: Temp Pulse Resp BP Pulse Ox 98.1 F 99 15 133/92 H 99 07/28/17 16:08 07/28/17 16:08 07/28/17 20:01 07/28/17 20:00 07/28/17 20:01 - Laboratory Laboratory results interpreted by me: 07/28/17 07/28/17 16:20 16:20 WBC 11.7 H Absolute Neutrophils 8.6 H Glucose 113 H AST 40 H Discharge <SHAHEED HINES - Last Filed: 07/28/17 18:12> <OCTAVIO FORTUNE - Last Filed: 07/28/17 21:01> - Discharge Clinical Impression: Stuttering, Confusion Headache Qualifiers: Headache type: unspecified Headache chronicity pattern: acute headache Intractability: not intractable Qualified Code(s): R51 - Headache Condition: Stable Disposition: HOME, SELF-CARE Additional Instructions: Your symptoms today are quite similar to multiple previous episodes like this according to your history. You reported usually takes a week for the stuttering to clear up when you have 1 of these episodes. You should continue your regular medications, get plenty of rest. Follow-up with your doctor tomorrow for recheck if not feeling any better. RETURN TO THE EMERGENCY ROOM IF ANY NEW OR WORSENING SYMPTOMS. Referrals: TAHIR JACKSON, [facility] [facility] [Primary Care Provider] - Follow up tomorrow Scribe Attestation: 07/28/17 18:10 I personally performed the services described in the documentation, reviewed and edited the documentation which was dictated to the scribe in my presence, and it accurately records my words and actions. (OCTAVIO FORTUNE) Annyibe Documentation - Scribe Written by Bull:: Bull Nichole, 07/28/2017 18:00 acting as scribe for :: Trinidad <SHAHEED HINES - Last Filed: 07/28/17 18:12>
--- NOTE | 2017-07-28 17:12 | RADIOLOGY REPORT (SQ) ---
EXAM DESCRIPTION: CT HEAD WITHOUT COMPLETED DATE/TIME: 07/28/2017 4:58 pm REASON FOR STUDY: stuttering COMPARISON: 12 CT brain exams since 09/25/2008, most recently 04/01/2017 MRI brain 03/26/2016 TECHNIQUE: Axial images acquired through the brain without intravenous contrast. Images reviewed wi th bone, brain and subdural windows. Images stored on PACS. All CT scanners at this facility use dose modulation, iterative reconstruction, and/or weight based d osing when appropriate to reduce radiation dose to as low as reasonably achievable (ALARA). [facility]: Dose Right [facility]: CareDose [facility]: Dose Right [facility]: Teradose 4D [facility]: Smart AirPR RADIATION DOSE: Up-to-date CT equipment and radiation dose reduction techniques were employed. CTDIv ol: 64.6 mGy. DLP: 1034 mGy-cm. mGy. LIMITATIONS: None. FINDINGS: VENTRICLES: Normal size and contour. CEREBRUM: No masses. No hemorrhage. No midline shift. No evidence for acute infarction. Incidental finding of a benign perivascular space in the right basal ganglia unchanged since 2007. CEREBELLUM: No masses. No hemorrhage. No alteration of density. No evidence for acute infarction. EXTRAAXIAL SPACES: No fluid collections. No masses. ORBITS AND GLOBE: No intra- or extraconal masses. Normal contour of globe without masses. CALVARIUM: No fracture. PARANASAL SINUSES: No fluid or mucosal thickening. SOFT TISSUES: No mass or hematoma. OTHER: No other significant finding. IMPRESSION: NORMAL BRAIN CT WITHOUT CONTRAST. COMMENT: Quality ID # [id number]: Final reports with documentation of one or more dose reduction techniques (e.g., Automated exposure control, adjustment of the mA and/or kV according to patient size, use of iterative reconstruction technique) TECHNICAL DOCUMENTATION: JOB ID: [id number]- All Rights Reserved
--- NOTE | 2017-07-28 17:44 | RADIOLOGY REPORT (SQ) ---
EXAM DESCRIPTION: CHEST SINGLE VIEW COMPLETED DATE/TIME: 07/28/2017 5:24 pm REASON FOR STUDY: weakness COMPARISON: 04/01/2017 EXAM PARAMETERS: NUMBER OF VIEWS: One view. TECHNIQUE: Single frontal radiographic view of the chest acquired. RADIATION DOSE: NA LIMITATIONS: None. FINDINGS: LUNGS AND PLEURA: No opacities, masses or pneumothorax. No pleural effusion. MEDIASTINUM AND HILAR STRUCTURES: No masses. Contour normal. HEART AND VASCULAR STRUCTURES: Heart normal in size. Normal vasculature. BONES: No acute findings. HARDWARE: None in the chest. OTHER: No other significant finding. IMPRESSION: NO ACUTE RADIOGRAPHIC FINDING IN THE CHEST. TECHNICAL DOCUMENTATION: JOB ID: [id number]
[2017-07-28 18:20] LABS: ABSOLUTE BASOPHILS # (AUTO) 0.1 10^3/uL (0.0-0.2); ABSOLUTE EOSINOPHILS # (AUTO) 0.1 10^3/uL (0.0-0.6); ABSOLUTE LYMPHOCYTES (AUTO) 2.6 10^3/uL (0.5-4.7); ABSOLUTE MONOCYTES (AUTO) 0.4 10^3/uL (0.1-1.4); ABSOLUTE NEUT (AUTO) 8.6 10^3/uL (1.7-8.2); BASOPHILS % (AUTO) 0.7 % (0-2); EOSINOPHILS % (AUTO) 0.6 % (0-6); HEMATOCRIT 44.1 % (36.0-47.0); HEMOGLOBIN 15.2 g/dL (12.0-15.5); HGB HCT DIFFERENCE 1.5; MEAN CORPUSCULAR HEMOGLOBIN 29.9 pg (27.0-33.4); MEAN CORPUSCULAR HGB CONC 34.4 g/dL (32.0-36.0); MEAN CORPUSCULAR VOLUME 87 fl (80-97); MONOCYTES % (AUTO) 3.6 % (3-13); RED BLOOD COUNT 5.07 10^6/uL (3.72-5.28); RED CELL DISTRIBUTION WIDTH 13.6 % (11.5-14.0); SEGMENTED NEUTROPHILS % (AUTO) 73.1 % (42-78); WHITE BLOOD COUNT 11.7 10^3/uL (4.0-10.5)
[2017-07-28 18:43] LABS: ALANINE AMINOTRANSFERASE 46 U/L (9-52); ALBUMIN 4.4 g/dL (3.5-5.0); ALKALINE PHOSPHATASE 91 U/L (38-126); ANION GAP 13 (5-19); ASPARTATE AMINO TRANSFERASE 40 U/L (14-36); BILIRUBIN,DIRECT 0.4 mg/dL (0.0-0.4); BILIRUBIN,TOTAL 0.7 mg/dL (0.2-1.3); BLOOD UREA NITROGEN 13 mg/dL (7-20); CALCIUM 9.9 mg/dL (8.4-10.2); CARBON DIOXIDE 26 mmol/L (22-30); CHLORIDE 103 mmol/L (98-107); CREATINE KINASE 122 U/L (30-135); CREATININE RESULT 0.58 mg/dL (0.52-1.25); GLUCOSE 113 mg/dL (75-110); POTASSIUM 3.9 mmol/L (3.6-5.0); SODIUM 141.9 mmol/L (137-145); TOTAL PROTEIN 7.3 g/dL (6.3-8.2)
[2017-07-28 18:55] LABS: CREATINE KINASE MB 1.06 ng/mL (<4.55)
[2017-07-28 19:05] LABS: TROPONIN I < 0.012 ng/mL
--- NOTE | 2017-07-28 20:34 | EKG REPORT ---
SEVERITY:- BORDERLINE ECG - SINUS RHYTHM LVH BY VOLTAGE : Confirmed by: Edmundo Morgan 28-Jul-2017 20:34:07
[2017-07-28 21:04] VITALS: BP 127/89
== END 2017-07-28 21:12 | disposition home or self-care (01) ==
LOC: ER 16:03
DX: R41.0 Disorientation, unspecified (principal); R47.82 Fluency disorder in conditions classified elsewhere; R51 Headache; R47.81 Slurred speech; R20.0 Anesthesia of skin
CPT/HCPCS: 36415; 70450; 71010; 80053; 82550; 82553; 82962; 84484; 85025; 93005; 93010

== ENCOUNTER 2017-11-13 20:07 | Emergency (ER) | payer MEDICAID ==
[2017-11-13] MEDS ORDERED: PROMETHAZINE HCL INJ 25 MG/1 ML VIAL IM ONE (20:20)
[2017-11-13] MEDS ORDERED: NORMAL SALINE 1000 ML 1,000 ML IV ONE (20:22)
--- NOTE | 2017-11-13 20:32 | ER Document Report ---
ED General - General Stated Complaint: VOMITING Time Seen by Provider: 11/13/17 20:19 Notes: 37 years old diabetic female 1 hour prior to arrival started having intractable vomiting and had couple of loose stools. Therefore presented to the ED she claims has no abdominal pain but has abdominal cramps. Denies any fever chills or other constitutional symptoms. TRAVEL OUTSIDE OF THE [place] IN LAST 30 DAYS: No - Related Data Allergies/Adverse Reactions: adhesive tape [Adhesive Tape] Allergy (Severe, Verified 09/16/17 13:31) Generalized Itching haloperidol [From Haldol] Allergy (Severe, Verified 09/16/17 13:31) "Panic attack" prochlorperazine maleate [From Compazine] Allergy (Severe, Verified 09/16/17 13: 31) Shortness of breath latex [Latex] Allergy (Intermediate, Verified 09/16/17 13:31) Hives morphine Adverse Reaction (Severe, Verified 09/16/17 13:31) ? metoclopramide HCl [From Reglan] Adverse Reaction (Intermediate, Verified 13:31) "spazed out" Past Medical History - Social History Smoking Status: Unknown if Ever Smoked Family History: None - Past Medical History Cardiac Medical History: Reports: Hx Hypercholesterolemia, Hx Hypertension Denies: Hx Coronary Artery Disease - high cholesterol, Hx Heart Attack Pulmonary Medical History: Reports: Hx Asthma - as child Denies: Hx Bronchitis, Hx COPD, Hx Pneumonia Neurological Medical History: Reports: Hx Cerebrovascular Accident - Multiple TIAs, Hx Migraine. Denies: Hx Seizures Endocrine Medical History: Reports: Hx Diabetes Mellitus Type 2 Renal/ Medical History: Denies: Hx Peritoneal Dialysis GI Medical History: Musculoskeltal Medical History: Reports Hx Arthritis - BILATERAL WRIST, Hips Psychiatric Medical History: Reports: Hx Depression Infectious Medical History: Past Surgical History: Reports: Hx Abdominal Surgery - , Hx Appendectomy, Hx Bowel Surgery, Hx Section, Hx Cholecystectomy, Hx Hysterectomy, Hx Tonsillectomy, Hx Tubal Ligation. Denies: Hx Pacemaker - Immunizations Hx Diphtheria, Pertussis, Tetanus Vaccination: Yes - 2016 Review of Systems - Review of Systems Notes: REVIEW OF SYSTEMS: CONSTITUTIONAL : Denies fever, chills, or sweats. Denies recent illness. EENT: Denies eye, ear, throat, or mouth pain or symptoms. Denies nasal or sinus congestion or discharge. Denies throat, tongue, or mouth swelling or difficulty swallowing. CARDIOVASCULAR: Denies chest pain. Denies palpitations or racing or irregular heart beat. Denies ankle edema. RESPIRATORY: Denies cough, cold, or chest congestion. Denies shortness of breath, difficulty breathing, or wheezing. GASTROINTESTINAL: Denies black, tarry stools. Denies constipation. GENITOURINARY: Denies difficulty urinating, painful urination, burning, frequency, blood in urine, or discharge. FEMALE GENITOURINARY: Denies vaginal bleeding, heavy or abnormal periods, irregular periods. Denies vaginal discharge or odor. MUSCULOSKELETAL: Denies back or neck pain or stiffness. Denies joint pain or swelling. SKIN: Denies rash, lesions or sores. HEMATOLOGIC : Denies easy bruising or bleeding. LYMPHATIC: Denies swollen, enlarged glands. NEUROLOGICAL: Denies confusion or altered mental status. Denies passing out or loss of consciousness. Denies dizziness or lightheadedness. Denies headache. Denies weakness or paralysis or loss of use of either side. Denies problems with gait or speech. Denies sensory loss, numbness, or tingling. Denies seizures. PSYCHIATRIC: Denies anxiety or stress. Denies depression, suicidal ideation, or homicidal ideation. ALL OTHER SYSTEMS REVIEWED AND NEGATIVE. PHYSICAL EXAMINATION: GENERAL: Well-appearing, well-nourished and in no acute distress. Morbidly obese HEAD: Atraumatic, normocephalic. EYES: Pupils equal round and reactive to light, extraocular movements intact, conjunctiva are normal. ENT: Nares patent, oropharynx clear without exudates. Moist mucous membranes. NECK: Normal range of motion, supple without lymphadenopathy LUNGS: Breath sounds clear to auscultation bilaterally and equal. No wheezes rales or rhonchi. HEART: Regular rate and rhythm without murmurs ABDOMEN: Soft, nontender, nondistended abdomen. No guarding, no rebound. No masses appreciated. Female : deferred Musculoskeletal: Normal range of motion, no pitting or edema. No cyanosis. NEUROLOGICAL: Cranial nerves grossly intact. Normal speech, normal gait. Normal sensory, motor exams PSYCH: Normal mood, normal affect. SKIN: Warm, Dry, normal turgor, no rashes or lesions noted. Dictation was performed using [email or web address] recognition software Physical Exam - Vital signs Vitals: Temp Pulse Resp BP Pulse Ox 97.7 F 135 H 17 118/62 98 11/13/17 20:09 11/13/17 20:09 11/13/17 20:09 11/13/17 20:09 11/13/17 20:09 Course - Re-evaluation Re-evalutation: 11/14/17 00:05 Feeling much better and there is no more nausea or vomiting. Now she claims that she has an infected tooth on the left side of her jaw. She claims that it was pulled 3 days ago. Denied any fever chills. KUB indicates fair amount of retained stool. - Vital Signs Vital signs: Temp Pulse Resp BP Pulse Ox 97.7 F 135 H 17 118/62 98 11/13/17 20:09 11/13/17 20:09 11/13/17 20:09 11/13/17 20:09 11/13/17 20:09 - Laboratory Result Diagrams: 11/13/17 21:19 11/13/17 21:45 Laboratory results interpreted by me: 11/13/17 11/13/17 21:19 21:45 WBC 11.4 H Plt Count 144 L Seg Neutrophils % 86.6 H Lymphocytes % 7.4 L Absolute Neutrophils 9.9 H Creatinine 0.42 L Glucose 181 H AST 64 H Total Protein 6.1 L - Diagnostic Test Radiology results interpreted by me: 11/14/17 00:06 Radiology report reviewed Discharge - Discharge Clinical Impression: Dental caries Retained feces Qualifiers: Constipation type: slow transit constipation Qualified Code(s): K59.01 - Slow transit constipation Nausea & vomiting Qualifiers: Vomiting type: unspecified Vomiting Intractability: non-intractable Qualified Code(s): R11.2 - Nausea with vomiting, unspecified Condition: Fair Disposition: HOME, SELF-CARE Instructions: Viral Syndrome ([facility]), Vomiting ([facility]), Constipation ([facility]) Prescriptions: Amoxicillin 1 tab PO TID #30 tab Lubiprostone [Amitiza 24 Mcg Capsule] 24 mcg PO DAILY #60 capsule Promethazine HCl 25 mg PO TID #20 tablet
[2017-11-13] MEDS ORDERED: PROMETHAZINE HCL INJ 25 MG/1 ML VIAL ONE (21:22)
[2017-11-13 21:33] LABS: ABSOLUTE BASOPHILS # (AUTO) 0.1 10^3/uL (0.0-0.2); ABSOLUTE EOSINOPHILS # (AUTO) 0.1 10^3/uL (0.0-0.6); ABSOLUTE LYMPHOCYTES (AUTO) 0.9 10^3/uL (0.5-4.7); ABSOLUTE MONOCYTES (AUTO) 0.5 10^3/uL (0.1-1.4); ABSOLUTE NEUT (AUTO) 9.9 10^3/uL (1.7-8.2); BASOPHILS % (AUTO) 0.8 % (0-2); EOSINOPHILS % (AUTO) 0.9 % (0-6); HEMATOCRIT 43.7 % (36.0-47.0); HEMOGLOBIN 14.6 g/dL (12.0-15.5); HGB HCT DIFFERENCE 0.1; LYMPHOCYTES % (AUTO) 7.4 % (13-45); MEAN CORPUSCULAR HEMOGLOBIN 29.4 pg (27.0-33.4); MEAN CORPUSCULAR HGB CONC 33.5 g/dL (32.0-36.0); MEAN CORPUSCULAR VOLUME 88 fl (80-97); MONOCYTES % (AUTO) 4.3 % (3-13); RED BLOOD COUNT 4.97 10^6/uL (3.72-5.28); RED CELL DISTRIBUTION WIDTH 12.9 % (11.5-14.0); SEGMENTED NEUTROPHILS % (AUTO) 86.6 % (42-78); WHITE BLOOD COUNT 11.4 10^3/uL (4.0-10.5)
[2017-11-13 22:12] LABS: ALANINE AMINOTRANSFERASE 48 U/L (9-52); ALBUMIN 3.9 g/dL (3.5-5.0); ALKALINE PHOSPHATASE 89 U/L (38-126); ANION GAP 15 (5-19); ASPARTATE AMINO TRANSFERASE 64 U/L (14-36); BILIRUBIN,DIRECT 0.3 mg/dL (0.0-0.4); BILIRUBIN,TOTAL 0.6 mg/dL (0.2-1.3); BLOOD UREA NITROGEN 11 mg/dL (7-20); CALCIUM 9.4 mg/dL (8.4-10.2); CARBON DIOXIDE 23 mmol/L (22-30); CHLORIDE 104 mmol/L (98-107); CREATININE RESULT 0.42 mg/dL (0.52-1.25); GLUCOSE 181 mg/dL (75-110); LIPASE 42.8 U/L (23-300); POTASSIUM 4.3 mmol/L (3.6-5.0); SODIUM 142.2 mmol/L (137-145); TOTAL PROTEIN 6.1 g/dL (6.3-8.2)
--- NOTE | 2017-11-13 22:44 | RADIOLOGY REPORT (SQ) ---
EXAM DESCRIPTION: ACUTE ABDOMEN SERIES COMPLETED DATE/TIME: 11/13/2017 10:29 pm REASON FOR STUDY: Acute abdominal pain COMPARISON: None. NUMBER OF VIEWS: Three views. TECHNIQUE: Frontal chest, supine abdomen and upright/decubitus abdomen radiographic images acquired. LIMITATIONS: None. FINDINGS: CHEST: Lungs clear of infiltrates. FREE AIR: None. No abnormal gas collections. BOWEL GAS PATTERN: Nonobstructive pattern. No dilated loops or air fluid levels. CALCIFICATIONS: No suspicious calcifications. HARDWARE: Surgical clips in the right upper and right lower quadrants. SOFT TISSUES: No gross mass or suggestion of organomegaly. BONES: No acute fracture. No worrisome bone lesions. OTHER: No other significant finding. IMPRESSION: Nonobstructive pattern. TECHNICAL DOCUMENTATION: JOB ID: [id number] [employer]- All Rights Reserved
[2017-11-14] MEDS ORDERED: AMOXICILLIN TRIHYDRATE 500 MG CAPSULE PO ONE (00:04)
[2017-11-14 00:26] VITALS: BP 121/81
== END 2017-11-14 00:26 | disposition home or self-care (01) ==
LOC: ER 20:07
DX: K02.9 Dental caries, unspecified (principal); K59.01 Slow transit constipation; R11.2 Nausea with vomiting, unspecified; E11.9 Type 2 diabetes mellitus without complications; R19.7 Diarrhea, unspecified
CPT/HCPCS: 99284; 96372; 96360; 96361; 36415; 83690; 84703; 85025; 80076; 80048; 74022; J2550; J7030

== ENCOUNTER 2018-01-04 14:11 | Emergency (ER) | payer MEDICAID ==
--- NOTE | 2018-01-04 14:36 | RADIOLOGY REPORT (SQ) ---
EXAM DESCRIPTION: CT HEAD WITHOUT COMPLETED DATE/TIME: 01/04/2018 2:22 pm REASON FOR STUDY: STROKE ALERT COMPARISON: [address] brain exams since 2007 most recently 09/16/2017 TECHNIQUE: Axial images acquired through the brain without intravenous contrast. Images reviewed wi th bone, brain and subdural windows. Images stored on PACS. All CT scanners at this facility use dose modulation, iterative reconstruction, and/or weight based d osing when appropriate to reduce radiation dose to as low as reasonably achievable (ALARA). [facility]: Dose Right [facility]: CareDose [facility]: Dose Right [facility]: Teradose 4D [facility]: CerRx RADIATION DOSE: 64.6 mGy. LIMITATIONS: None. FINDINGS: VENTRICLES: Normal size and contour. CEREBRUM: Benign perivascular space right basal ganglia. No masses. No hemorrhage. No midline shif t. No evidence for acute infarction. Normal ram/white matter differentiation. No areas of low densi ty in the white matter. CEREBELLUM: No masses. No hemorrhage. No alteration of density. No evidence for acute infarction. EXTRAAXIAL SPACES: No fluid collections. No masses. ORBITS AND GLOBE: No intra- or extraconal masses. Normal contour of globe without masses. CALVARIUM: No fracture. PARANASAL SINUSES: No fluid or mucosal thickening. SOFT TISSUES: No mass or hematoma. OTHER: No other significant finding. IMPRESSION: BENIGN PERIVASCULAR SPACE RIGHT BASAL GANGLIA. OTHERWISE UNREMARKABLE BRAIN CT WITHOUT CONTRAST. EVIDENCE OF ACUTE STROKE: NO. COMMENT: Quality ID # [id number]: Final reports with documentation of one or more dose reduction techniques (e.g., Automated exposure control, adjustment of the mA and/or kV according to patient size, use of iterative reconstruction technique) TECHNICAL DOCUMENTATION: JOB ID: [id number] [employer]- All Rights Reserved
--- NOTE | 2018-01-04 14:42 | ER Document Report ---
ED NIH Stroke Scale - NIH Stroke Scale When completed:: Before Alteplase *: 1. NIH scale should be completed with appropriate accompanying assessment tools. *: 2. The NIH should reflect what the patient is capable of doing and should not be coached by the clinician. 1a. Level of Consciousness: 0=Alert;keenly responsive -: 1=Drowsy -: 2=Obtunded -: 3=Coma/unresponsive or reflex to noxious stimuli. 1a. Responses: 0 1b. Orientation Questions: a. What month is it? -: b. How old are you? -: 0=Answers both questions correctly. -: 1=Answers one question correctly or patient is intubated or has orotracheal trauma. -: 2=Answers neither question correctly. 1b. Responses: 0 1c. Response to commands: a. Open and close eyes? -: b. Hydrodynamicist and release hand? -: Credit is given despite weakness. Demonstration of task is permitted. Substitute command if hands cannot be used. -: 0=Performs both tasks correctly -: 1=Performs one task correctly -: 2=Performs neither task correctly 1c. Responses: 0 2. Gaze: Establish eye contact and instruct patient to "Follow my finger" -: 0=Normal -: 1=Partial gaze palsy. Gaze is abnormal in one or both eyes, but where forced deviation or total gaze paresis is not present. -: 2=Forced deviation or total gaze paresis. 2. Responses: 0 3. Visual Leonardo: Sees fingers in all four quadrants. -: 0=No visual loss. -: 1=Partial hemianopsia. -: 2=Complete hemianopsia. -: 3=Bilateral hemianopsia (including Cortical blindness) 3. Responses: 0 4. Facial Movement: Instruct patient to: -: a. Show me your teeth -: b. Raise your eyebrows -: c. Close your eyes -: d. Smile -: 0=Normal symmetrical movement -: 1=Minor paralysis (flattened nasolabial fold, asymmetry on smiling). -: 2=Partial paralysis (total or near total paralysis of lower face). -: 3=Complete paralysis of upper and lower face 4. Responses: 0 5. Motor functions (left arm): Alternate sides and extend each arm with palms down (90 degrees if sitting or 45 degrees for supine). -: 0=No drift;limb holds for full 10 seconds. -: 1=Drift; limb holds but drifts down before full 10 seconds, but does not hit bed. -: 2=Some effort against gravity; limb cannot get to or maintain position. -: 3=No effort against gravity; limb falls. -: 4=No movement. -: UN=Amputation, joint fusion, explain in comments. 5. Responses (left arm): 1 5. Motor Functions (right arm): Alternate sides and extend each arm with palms down (90 degrees if sitting or 45 degrees for supine). -: 0=No drift;limb holds for full 10 seconds. -: 1=Drift; limb holds but drifts down before full 10 seconds, but does not hit bed. -: 2=Some effort against gravity; limb cannot get to or maintain position. -: 3=No effort against gravity; limb falls. -: 4=No movement. -: UN=Amputation, joint fusion, explain in comments. 5. Responses (right arm): 0 6. Motor Functions (left leg): With patient lying supine, alternate sides and extend each leg (30 degrees always while supine). -: 0=No drift, leg holds position for full 5 seconds -: 1=Drift; leg falls before full 5 seconds but does not hit bed. -: 2=Some effort against gravity, leg falls to bed but some effort against gravity. -: 3=No effort against gravity, leg falls to bed immediately. -: 4=No movement. -: UN=Amputation, joint fusion; explain in comments. 6. Responses (left leg): 2 6. Motor Functions (right leg): With patient lying supine, alternate sides and extend each leg (30 degrees always while supine). -: 0=No drift, leg holds position for full 5 seconds -: 1=Drift; leg falls before full 5 seconds but does not hit bed. -: 2=Some effort against gravity, leg falls to bed but some effort against gravity. -: 3=No effort against gravity, leg falls to bed immediately. -: 4=No movement. -: UN=Amputation, joint fusion; explain in comments. 6. Responses (right leg): 0 7. Limb Ataxia: With eyes open instruct patient to: -: a. "Touch your finger to your nose". -: b. "Touch your heel to your butterfield" -: 0=Absent -: 1=Present in one limb. -: 2=Present in two limbs. -: UN=Amputation or joint fusion; explain in comments. 7. Responses: 1 7. If ataxia present choose as appropriate: Left arm 8. Sensory: Test sensation using pinprick or noxious stimuli. Test as many body parts as possible. -: 0=Normal;no sensory loss -: 1=Mile to moderate sensory loss (patient feels pin prick but is less sharp on affected side). -: 2=Severe or total sensory loss. 8. Responses: 0 9. Best Language: Instruct patient to: -: a. "Describe what you see in this picture." -: b. "Name the items in this picture." -: c. "Read these sentences." -: 0=No aphasia, normal -: 1=Mild to moderate aphasia. -: 2=Severe aphasia -: 3=Mute, global aphasia, no usable speech or auditory comprehension. 9. Responses: 0 10. Articulation, Dysarthia: Instruct patient to: -: "Read these words" or "Repeat these words" -: 0=Normal -: 1=Mild to moderate; patient may slur some words but can be understood without difficulty. -: 2=Severe; patients speech so slurred as to be unintelligible in the absence of dysphasia. -: UN=Intubated or other physical barrier, explain in comments. 10. Responses: 1 11. Extinction or inattention: 0=No abnormality -: 1= Visual, tactile, auditory, spatial, or personal inattention or extinction to bilateral simulation in one or the sensory modalities. -: 2=Profound dana-inattention or dana-inattention to more than one modality; does not recognize own hand. 11. Responses: 0 Total Score: 5
--- NOTE | 2018-01-04 14:44 | ER Document Report ---
ED General - General Chief Complaint: S/S of Possible Stroke Stated Complaint: POSSIBLE STROKE Time Seen by Provider: 01/04/18 14:16 Information source: Patient, Emergency Med Personnel, [facility] Records TRAVEL OUTSIDE OF THE [place] IN LAST 30 DAYS: No - HPI Patient complains to provider of: slurred speech/left sided weakness Onset: Other - 1.5 hours GRE[facility]CHER Onset/Duration: Sudden Quality of pain: No pain Associated symptoms: None Exacerbated by: Denies Similar symptoms previously: Yes Recently seen / treated by doctor: Yes - Related Data Allergies/Adverse Reactions: adhesive tape [Adhesive Tape] Allergy (Severe, Verified 09/16/17 13:31) Generalized Itching haloperidol [From Haldol] Allergy (Severe, Verified 09/16/17 13:31) "Panic attack" prochlorperazine maleate [From Compazine] Allergy (Severe, Verified 09/16/17 13: 31) Shortness of breath latex [Latex] Allergy (Intermediate, Verified 09/16/17 13:31) Hives morphine Adverse Reaction (Severe, Verified 09/16/17 13:31) ? metoclopramide HCl [From Reglan] Adverse Reaction (Intermediate, Verified 13:31) "spazed out" Past Medical History - General Information source: Patient, [facility] Records - Social History Smoking Status: Current Some Day Smoker Frequency of alcohol use: None Drug Abuse: None Lives with: Family Family History: None Patient has suicidal ideation: No Patient has homicidal ideation: No - Past Medical History Cardiac Medical History: Reports: Hx Hypercholesterolemia, Hx Hypertension Denies: Hx Coronary Artery Disease - high cholesterol, Hx Heart Attack Pulmonary Medical History: Reports: Hx Asthma - as child Denies: Hx Bronchitis, Hx COPD, Hx Pneumonia Neurological Medical History: Reports: Hx Migraine. Denies: Hx Seizures Endocrine Medical History: Reports: Hx Diabetes Mellitus Type 2 Renal/ Medical History: Reports: None. Denies: Hx Peritoneal Dialysis Malignancy Medical History: Reports: None GI Medical History: Reports: None Musculoskeltal Medical History: Reports Hx Arthritis - BILATERAL WRIST, Hips Psychiatric Medical History: Reports: Hx Depression Infectious Medical History: Past Surgical History: Reports: Hx Abdominal Surgery - , Hx Appendectomy, Hx Bowel Surgery, Hx Section, Hx Cholecystectomy, Hx Hysterectomy, Hx Tonsillectomy, Hx Tubal Ligation. Denies: Hx Pacemaker - Immunizations Hx Diphtheria, Pertussis, Tetanus Vaccination: Yes - 2016 Review of Systems - Review of Systems Constitutional: No symptoms reported EENT: No symptoms reported Cardiovascular: No symptoms reported Respiratory: No symptoms reported Gastrointestinal: No symptoms reported Genitourinary: No symptoms reported Female Genitourinary: No symptoms reported Musculoskeletal: No symptoms reported Skin: No symptoms reported Hematologic/Lymphatic: No symptoms reported Neurological/Psychological: See HPI Physical Exam - Vital signs Vitals: Pulse Resp BP Pulse Ox 99 21 H 126/86 H 97 01/04/18 14:12 01/04/18 14:12 01/04/18 14:12 01/04/18 14:12 - Notes Notes: PHYSICAL EXAMINATION: GENERAL: Well-appearing, well-nourished. HEAD: Atraumatic, normocephalic. EYES: Pupils equal round and reactive to light, extraocular movements intact, conjunctiva are normal. ENT: Nares patent, oropharynx clear without exudates. Moist mucous membranes. NECK: Normal range of motion, supple without lymphadenopathy LUNGS: Breath sounds clear to auscultation bilaterally and equal. No wheezes rales or rhonchi. HEART: Regular rate and rhythm without murmurs ABDOMEN: Obese, nontender, nondistended abdomen. No guarding, no rebound. No masses appreciated. Female : deferred Musculoskeletal: Normal range of motion, no pitting or edema. No cyanosis. NEUROLOGICAL: Cranial nerves grossly intact. slurred speech. PSYCH: Normal mood, normal affect. SKIN: Warm, Dry, normal turgor, no rashes or lesions noted. Course - Re-evaluation Re-evalutation: 01/04/18 14:[address] Ivory. She stated no acute findings on head CT. 01/04/18 18:35 Labs- All tests 24 hr 01/04/18 01/04/18 01/04/18 13:45 13:45 13:45 WBC 7.5 RBC 4.80 Hgb 13.9 Hct 41.7 MCV 87 MCH 28.9 MCHC 33.3 RDW 13.2 Plt Count 148 L Seg Neutrophils % 69.8 Lymphocytes % 24.5 Monocytes % 3.5 Eosinophils % 1.9 Basophils % 0.3 Absolute Neutrophils 5.3 Absolute Lymphocytes 1.8 Absolute Monocytes 0.3 Absolute Eosinophils 0.1 Absolute Basophils 0.0 PT Cancelled INR Cancelled Sodium 137.8 Potassium 4.2 Chloride 101 Carbon Dioxide 24 Anion Gap 13 BUN 8 Creatinine 0.45 L Est GFR ( Amer) > 60 Est GFR (Non-Af Amer) > 60 Glucose 350 H POC Glucose Calcium 9.6 Magnesium 1.4 L Total Bilirubin 0.4 Direct Bilirubin 0.4 Neonat Total Bilirubin Not Reportable Neonat Direct Bilirubin Not Reportable Neonat Indirect Bili Not Reportable AST 53 H ALT 44 Alkaline Phosphatase 105 Troponin I Total Protein 7.0 Albumin 4.2 Urine Color Urine Appearance Urine pH Ur Specific [place] Urine Protein Urine Glucose (UA) Urine Ketones Urine Blood Urine Nitrite Urine Bilirubin Urine Urobilinogen Ur Leukocyte Esterase Urine WBC (Auto) Urine RBC (Auto) Squamous Epi Cells Auto Urine Ascorbic Acid Urine HCG, Qual Urine Opiates Screen Urine Methadone Screen Ur Barbiturates Screen Ur Phencyclidine Scrn Ur Amphetamines Screen U Benzodiazepines Scrn Urine Cocaine Screen U Marijuana (THC) Screen Serum Alcohol < 10 01/04/18 01/04/18 01/04/18 13:45 14:28 14:35 WBC RBC Hgb Hct MCV MCH MCHC RDW Plt Count Seg Neutrophils % Lymphocytes % Monocytes % Eosinophils % Basophils % Absolute Neutrophils Absolute Lymphocytes Absolute Monocytes Absolute Eosinophils Absolute Basophils PT 12.3 INR 0.85 Sodium Potassium Chloride Carbon Dioxide Anion Gap BUN Creatinine Est GFR ( Amer) Est GFR (Non-Af Amer) Glucose POC Glucose 320 H Calcium Magnesium Total Bilirubin Direct Bilirubin Neonat Total Bilirubin Neonat Direct Bilirubin Neonat Indirect Bili AST ALT Alkaline Phosphatase Troponin I < 0.012 Total Protein Albumin Urine Color Urine Appearance Urine pH Ur Specific [place] Urine Protein Urine Glucose (UA) Urine Ketones Urine Blood Urine Nitrite Urine Bilirubin Urine Urobilinogen Ur Leukocyte Esterase Urine WBC (Auto) Urine RBC (Auto) Squamous Epi Cells Auto Urine Ascorbic Acid Urine HCG, Qual Urine Opiates Screen Urine Methadone Screen Ur Barbiturates Screen Ur Phencyclidine Scrn Ur Amphetamines Screen U Benzodiazepines Scrn Urine Cocaine Screen U Marijuana (THC) Screen Serum Alcohol 01/04/18 01/04/18 01/04/18 15:24 15:24 17:00 WBC RBC Hgb Hct MCV MCH MCHC RDW Plt Count Seg Neutrophils % Lymphocytes % Monocytes % Eosinophils % Basophils % Absolute Neutrophils Absolute Lymphocytes Absolute Monocytes Absolute Eosinophils Absolute Basophils PT INR Sodium Potassium Chloride Carbon Dioxide Anion Gap BUN Creatinine Est GFR ( Amer) Est GFR (Non-Af Amer) Glucose POC Glucose 282 H Calcium Magnesium Total Bilirubin Direct Bilirubin Neonat Total Bilirubin Neonat Direct Bilirubin Neonat Indirect Bili AST ALT Alkaline Phosphatase Troponin I Total Protein Albumin Urine Color YELLOW Urine Appearance CLEAR Urine pH 6.0 Ur Specific [place] 1.035 Urine Protein NEGATIVE Urine Glucose (UA) >=500 H Urine Ketones TRACE H Urine Blood NEGATIVE Urine Nitrite NEGATIVE Urine Bilirubin NEGATIVE Urine Urobilinogen NEGATIVE Ur Leukocyte Esterase NEGATIVE Urine WBC (Auto) 0 Urine RBC (Auto) 0 Squamous Epi Cells Auto 1 Urine Ascorbic Acid NEGATIVE Urine HCG, Qual NEGATIVE Urine Opiates Screen UNCONFIRMED POSITIVE Urine Methadone Screen NEGATIVE Ur Barbiturates Screen UNCONFIRMED POSITIVE Ur Phencyclidine Scrn NEGATIVE Ur Amphetamines Screen NEGATIVE U Benzodiazepines Scrn NEGATIVE Urine Cocaine Screen NEGATIVE U Marijuana (THC) Screen NEGATIVE Serum Alcohol Chest X-Ray 01/04/18 00:00 IMPRESSION: No acute disease. Head CT 01/04/18 00:00 IMPRESSION: BENIGN PERIVASCULAR SPACE RIGHT BASAL GANGLIA. OTHERWISE UNREMARKABLE BRAIN CT WITHOUT CONTRAST. EVIDENCE OF ACUTE STROKE: NO. 01/04/18 18:35 patient is alert oriented 3. She is sitting up playing on her phone. No acute distress. 01/04/18 18:36 she ambulated without assist. Her speech is back to baseline. Did talk to her I stated that she has had 12 CAT scans of her head since 2007. I encouraged her to follow-up with neurology. Patient is presented here multiple times in the past with the same symptoms. CAT scan has always been within normal limits and symptoms have resolved on their own. - Vital Signs Vital signs: Temp Pulse Resp BP Pulse Ox 98.6 F 99 16 126/84 H 98 01/04/18 18:50 01/04/18 17:12 01/04/18 18:46 01/04/18 18:46 01/04/18 18:46 - Laboratory Result Diagrams: 01/04/18 13:45 01/04/18 13:45 Laboratory results interpreted by me: 01/04/18 01/04/18 01/04/18 13:45 13:45 14:28 Plt Count 148 L Creatinine 0.45 L Glucose 350 H POC Glucose 320 H Magnesium 1.4 L AST 53 H Urine Glucose (UA) Urine Ketones 01/04/18 01/04/18 15:24 17:00 Plt Count Creatinine Glucose POC Glucose 282 H Magnesium AST Urine Glucose (UA) >=500 H Urine Ketones TRACE H - EKG Interpretation by Me EKG shows normal: Sinus rhythm - 99 When compared to previous EKG there are: No significant change Discharge - Discharge Clinical Impression: Weakness, Slurred speech, Hyperglycemia, Hypomagnesemia Disposition: HOME, SELF-CARE Additional Instructions: Follow up with your physician tomorrow for further care or return to the ED IMMEDIATELY if symptoms worsen or new concerns occur. If you cannot afford to follow up with your primary care physician a list of low cost clinics have been provided at the end of your discharge papers as well. Referrals: TAHIR JACKSON, YOC [Primary Care Provider] - Follow up tomorrow (Call office in am for appointment) MARY ALICE POMPA MD [ACTIVE STAFF] - Follow up in 3-5 days
[2018-01-04 14:48] LABS: ABSOLUTE EOSINOPHILS # (AUTO) 0.1 10^3/uL (0.0-0.6); ABSOLUTE LYMPHOCYTES (AUTO) 1.8 10^3/uL (0.5-4.7); ABSOLUTE MONOCYTES (AUTO) 0.3 10^3/uL (0.1-1.4); ABSOLUTE NEUT (AUTO) 5.3 10^3/uL (1.7-8.2); BASOPHILS % (AUTO) 0.3 % (0-2); EOSINOPHILS % (AUTO) 1.9 % (0-6); HEMATOCRIT 41.7 % (36.0-47.0); HEMOGLOBIN 13.9 g/dL (12.0-15.5); LYMPHOCYTES % (AUTO) 24.5 % (13-45); MEAN CORPUSCULAR HEMOGLOBIN 28.9 pg (27.0-33.4); MEAN CORPUSCULAR HGB CONC 33.3 g/dL (32.0-36.0); MEAN CORPUSCULAR VOLUME 87 fl (80-97); MONOCYTES % (AUTO) 3.5 % (3-13); PLATELET COUNT 148 10^3/uL (150-450); RED CELL DISTRIBUTION WIDTH 13.2 % (11.5-14.0); SEGMENTED NEUTROPHILS % (AUTO) 69.8 % (42-78); TOTAL CELLS COUNTED % (AUTO) 100 %; WHITE BLOOD COUNT 7.5 10^3/uL (4.0-10.5)
[2018-01-04 14:49] LABS: INTERNATIONAL RATION (INR) 0.85
[2018-01-04 14:53] LABS: PROTHROMBIN TIME 12.3 SEC (11.4-15.4)
[2018-01-04 15:20] LABS: ALANINE AMINOTRANSFERASE 44 U/L (9-52); ALBUMIN 4.2 g/dL (3.5-5.0); ALKALINE PHOSPHATASE 105 U/L (38-126); ANION GAP 13 (5-19); ASPARTATE AMINO TRANSFERASE 53 U/L (14-36); BILIRUBIN,DIRECT 0.4 mg/dL (0.0-0.4); BILIRUBIN,TOTAL 0.4 mg/dL (0.2-1.3); BLOOD UREA NITROGEN 8 mg/dL (7-20); CALCIUM 9.6 mg/dL (8.4-10.2); CARBON DIOXIDE 24 mmol/L (22-30); CHLORIDE 101 mmol/L (98-107); GLUCOSE 350 mg/dL (75-110); MAGNESIUM 1.4 mg/dL (1.6-2.3); POTASSIUM 4.2 mmol/L (3.6-5.0); SODIUM 137.8 mmol/L (137-145)
[2018-01-04 15:21] LABS: ALCOHOL < 10 mg/dL (NONE DETECTED)
--- NOTE | 2018-01-04 15:25 | RADIOLOGY REPORT (SQ) ---
EXAM DESCRIPTION: CHEST SINGLE VIEW COMPLETED DATE/TIME: 01/04/2018 2:40 pm REASON FOR STUDY: STROKE ALERT COMPARISON: None. EXAM PARAMETERS: NUMBER OF VIEWS: One view. TECHNIQUE: Single frontal radiographic view of the chest acquired. RADIATION DOSE: NA LIMITATIONS: None. FINDINGS: LUNGS AND PLEURA: No infiltrate, masses or pneumothorax. No pleural effusion. MEDIASTINUM AND HILAR STRUCTURES: No masses. Contour normal. HEART AND VASCULAR STRUCTURES: Heart normal in size. Normal vasculature. BONES: No acute findings. HARDWARE: None in the chest. OTHER: Chest leads in place. IMPRESSION: No acute disease. TECHNICAL DOCUMENTATION: JOB ID: [id number] [employer]- All Rights Reserved
[2018-01-04 15:44] LABS: APPEARANCE,URINE CLEAR; BILIRUBIN,URINE NEGATIVE (NEGATIVE); COLOR,URINE YELLOW; GLUCOSE, URINE >=500 mg/dL (NEGATIVE); KETONES,URINE TRACE mg/dL (NEGATIVE); LEUKOCYTE ESTERASE,URINE NEGATIVE (NEGATIVE); NITRITE,URINE NEGATIVE (NEGATIVE); PROTEIN,URINE NEGATIVE (NEGATIVE); URINE SPECIFIC GRAVITY 1.035; UROBILINOGEN,URINE NEGATIVE mg/dL (<2.0)
[2018-01-04 15:58] LABS: URINE AMPHETAMINES SCREEN NEGATIVE; URINE BARBITURATES SCREEN UNCONFIRMED POSITIVE; URINE BENZODIAZEPINES SCREEN NEGATIVE; URINE COCAINE SCREEN NEGATIVE; URINE MARIJUANA (THC) SCREEN NEGATIVE; URINE METHADONE SCREEN NEGATIVE; URINE PHENCYCLIDINE SCREEN NEGATIVE
[2018-01-04] MEDS ORDERED: MAGNESIUM OXIDE 400 MG TABLET PO ONE (16:37)
[2018-01-04] MEDS ORDERED: MAGNESIUM SULFATE/D5W 1 GM/100 ML RTUPB IV ONE (16:37)
[2018-01-04 18:50] VITALS: BP 126/84
--- NOTE | 2018-01-04 21:23 | EKG REPORT ---
SEVERITY:- BORDERLINE ECG - SINUS RHYTHM LVH BY VOLTAGE : Confirmed by: Edmundo Morgan 04-Jan-2018 21:22:50
== END 2018-01-04 18:52 | disposition home or self-care (01) ==
LOC: ER 14:11
DX: E11.65 Type 2 diabetes mellitus with hyperglycemia (principal); E83.42 Hypomagnesemia; R53.1 Weakness; R47.81 Slurred speech; F17.200 Nicotine dependence, unspecified, uncomplicated; E78.00 Pure hypercholesterolemia, unspecified; I10 Essential (primary) hypertension; Z91.040 Latex allergy status; Z88.6 Allergy status to analgesic agent; Z90.710 Acquired absence of both cervix and uterus; Z90.49 Acquired absence of other specified parts of digestive tract
CPT/HCPCS: 93005; 99285; 96365; 36415; 82962; 80307 ×2; 83735; 85025; 85610; 81025; 80053; 81001; 84484; 71045; 70450; 93010; J3490; J3475

== ENCOUNTER 2018-02-23 18:18 | Emergency (ER) | payer MEDICAID ==
--- NOTE | 2018-02-23 18:57 | ER Document Report ---
ED General - General Chief Complaint: Arm Injury Stated Complaint: LEFT ARM/WRIST INJURY Time Seen by Provider: 02/23/18 18:55 Mode of Arrival: Ambulatory Information source: Patient Notes: Patient is a 37-year-old female who presents with left arm pain, swelling and bruising that started earlier this evening. She states she was attempting to close a window in her home and her arm got caught between the window and the windowsill. She has not taken anything for pain. Pain is worse with movement. Denies any numbness, tingling or deformity. TRAVEL OUTSIDE OF THE [place] IN LAST 30 DAYS: No - Related Data Allergies/Adverse Reactions: adhesive tape [Adhesive Tape] Allergy (Severe, Verified 09/16/17 13:31) Generalized Itching haloperidol [From Haldol] Allergy (Severe, Verified 09/16/17 13:31) "Panic attack" prochlorperazine maleate [From Compazine] Allergy (Severe, Verified 09/16/17 13: 31) Shortness of breath latex [Latex] Allergy (Intermediate, Verified 09/16/17 13:31) Hives morphine Adverse Reaction (Severe, Verified 09/16/17 13:31) ? metoclopramide HCl [From Reglan] Adverse Reaction (Intermediate, Verified 13:31) "spazed out" Past Medical History - General Information source: Patient - Social History Smoking Status: Never Smoker Chew tobacco use (# tins/day): No Frequency of alcohol use: None Drug Abuse: None Family History: None Patient has suicidal ideation: No Patient has homicidal ideation: No - Past Medical History Cardiac Medical History: Reports: Hx Hypercholesterolemia, Hx Hypertension Denies: Hx Coronary Artery Disease - high cholesterol, Hx Heart Attack Pulmonary Medical History: Reports: Hx Asthma - as child Denies: Hx Bronchitis, Hx COPD, Hx Pneumonia Neurological Medical History: Reports: Hx Cerebrovascular Accident - Multiple TIAs, Hx Migraine. Denies: Hx Seizures Endocrine Medical History: Reports: Hx Diabetes Mellitus Type 2 Renal/ Medical History: Denies: Hx Peritoneal Dialysis GI Medical History: Musculoskeltal Medical History: Reports Hx Arthritis - BILATERAL WRIST, Hips Psychiatric Medical History: Reports: Hx Depression Infectious Medical History: Past Surgical History: Reports: Hx Abdominal Surgery - , Hx Appendectomy, Hx Bowel Surgery, Hx Section, Hx Cholecystectomy, Hx Hysterectomy, Hx Tonsillectomy, Hx Tubal Ligation. Denies: Hx Pacemaker - Immunizations Hx Diphtheria, Pertussis, Tetanus Vaccination: Yes - 2016 Review of Systems - Review of Systems Constitutional: See HPI EENT: No symptoms reported Cardiovascular: No symptoms reported Respiratory: No symptoms reported Gastrointestinal: No symptoms reported Genitourinary: No symptoms reported Female Genitourinary: No symptoms reported Musculoskeletal: See HPI Skin: No symptoms reported Hematologic/Lymphatic: No symptoms reported Neurological/Psychological: No symptoms reported Physical Exam - Vital signs Vitals: Temp Pulse Resp BP Pulse Ox 98.6 F 104 H 18 118/75 97 02/23/18 18:25 02/23/18 18:25 02/23/18 18:25 02/23/18 18:25 02/23/18 18:25 - Notes Notes: PHYSICAL EXAM: CONSTITUTIONAL: Alert and oriented, well-appearing and in no acute distress. HENT: Normocephalic, atraumatic.Trachea midline. Uvula midline. Moist mucous membranes. EYES: Pupils equal round and reactive to light, EOM intact. Sclera anicteric, conjunctiva are normal. No entrapment. HEART: Regular rate and rhythm without murmurs. LUNGS: CTAB and equal. No wheezes, rales or rhonchi. EXTREMITIES: Tender to palpation along distal radius and ulna of left forearm with mild erythema and edema to the same area without ecchymosis or deformity. Normal range of motion, no pitting edema. No cyanosis. Cap Refill <3 seconds. Distal pulses intact. NEURO: Cranial nerves grossly intact. Normal sensory/motor exams. PSYCH: Normal mood, normal affect. SKIN: Warm and dry. Normal turgor. No rashes or lesions noted. Course - Re-evaluation Re-evalutation: 02/23/18 18:57 Patient seen and examined. Vital signs stable, no acute distress, patient is well-appearing but appears uncomfortable secondary to pain. Will give a dose of p.o. pain medication here. No obvious deformity, neurovascular intact. Will obtain x-rays. 02/23/18 19:40 Reviewed images and radiology reports - negative for acute fracture or dislocation. Reviewed results with patient. Advised RICE instructions and NSAIDs for pain. Recommended follow-up with orthopedics. At this time, will discharge with return precautions and follow-up recommendations. Verbal discharge instructions given at the bedside and opportunity for questions given. Medication warnings reviewed. Patient is in agreement with this plan and has verbalized understanding of return precautions and the need for primary care follow-up in the next 24-72 hours. - Vital Signs Vital signs: Temp Pulse Resp BP Pulse Ox 98.7 F 99 19 130/87 H 100 02/23/18 20:03 02/23/18 20:03 02/23/18 20:03 02/23/18 20:03 02/23/18 20:03 - Diagnostic Test Radiology reviewed: Image reviewed, Reports reviewed Discharge - Discharge Clinical Impression: Contusion of left wrist, initial encounter Condition: Stable Disposition: HOME, SELF-CARE Additional Instructions: Contusion Your injury has resulted in a contusion -- a crushing of the deep tissues. No injury to important structures was detected during the physician's exam. Contusions vary in the amount of pain they cause, and in the length of time required for healing. Typically, the area will become bruised, and will remain painful to touch for two or three weeks. However, most patients are back to working and playing within a few days. After the initial period of rest and cold-packs, your symptoms (together with the doctor's recommendations) will determine how rapidly you can get back to full activity. Usually this means "do what feels okay, but don't do things that hurt." If re-examination was recommended, it's important to follow up as instructed. Call the doctor or return any time if pain increases, if swelling becomes severe, if you develop numbness or weakness in an injured extremity, or if any other alarming symptoms occur. Ice & Elevation Apply ice packs frequently against the painful area. Many different schedules are recommended, such as "20 minutes on, 20 minutes off" or "one hour ice, two hours rest." If you need to work, you may need to go longer between ice treatments. You should plan to have the area ice packed AT LEAST one- fourth of the time. The ice should be applied over the wrap, tape, or splint, or over a layer of cloth -- not directly against the skin. Some ice bags have a built-in cloth and can be put directly on the skin. Your injured part should be elevated as much as possible over the next 48 hours. Try to keep the injury above the level of the heart. Avoid use of the injured area. Elevation and rest will decrease the swelling. Ibuprofen Ibuprofen is an excellent, safe drug for pain control. In addition, it has potent antiinflammatory effects which are beneficial, especially in the treatment of injuries, arthritis, or tendonitis. It's best to take ibuprofen with food. Persons with ulcer disease or allergy to aspirin should notify their physician of this before taking ibuprofen. Take the medication exactly as prescribed. Don't take additional doses unless instructed to do so by your doctor. If you develop wheezing, shortness of breath, hives, faintness, stomach pain, vomiting, or dark black stools, return for re-evaluation at once. FOLLOW-UP CARE: If you have been referred to a physician for follow-up care, call the physician s office for an appointment as you were instructed or within the next two days. If you experience worsening or a significant change in your symptoms, notify the physician immediately or return to the Emergency Department at any time for re-evaluation. Prescriptions: Ketorolac Tromethamine [Toradol 10 mg Tablet] 10 mg PO Q8HP PRN #20 tablet PRN Reason: Referrals: TAHIR JACKSON, [facility] [Primary Care Provider] - Follow up in 3-5 days
[2018-02-23] MEDS ORDERED: HYDROCODONE/ACETAMINOPHEN 5-325 MG TABLET PO ONE (19:12)
--- NOTE | 2018-02-23 19:21 | RADIOLOGY REPORT (SQ) ---
EXAM DESCRIPTION: WRIST LEFT 3 VIEWS COMPLETED DATE/TIME: 02/23/2018 7:03 pm REASON FOR STUDY: pain COMPARISON: 11/20/2016 04/26/2016 09/29/2012 03/29/2012 01/29/2011 NUMBER OF VIEWS: Three views. TECHNIQUE: AP, lateral, and oblique radiographic images acquired of the left wrist. LIMITATIONS: None. FINDINGS: MINERALIZATION: Normal. BONES: There is minimal fragmentation of the radial styloid. This could suggest accessory ossificati on centers versus prior injury. No acute fracture or dislocation is seen. SOFT TISSUES: No soft tissue swelling. No foreign body. OTHER: There is slight widening of the scapholunate interval, but this appears stable. IMPRESSION: Chronic changes as described. No acute abnormality is seen in the wrist. TECHNICAL DOCUMENTATION: JOB ID: [id number] [employer]- All Rights Reserved Reading location - IP/workstation name: [email or web address]
[2018-02-23 20:07] VITALS: BP 130/87
== END 2018-02-23 20:10 | disposition home or self-care (01) ==
LOC: ER 18:18
DX: S60.212A Contusion of left wrist, initial encounter (principal); W23.0XXA Caught, crushed, jammed, or pinched between moving objects, initial encounter; Y93.89 Activity, other specified; Y92.009 Unspecified place in unspecified non-institutional (private) residence as the place of occurrence of the external cause; Z91.048 Other nonmedicinal substance allergy status; Z88.8 Allergy status to other drugs, medicaments and biological substances; Z91.040 Latex allergy status; I10 Essential (primary) hypertension; E11.9 Type 2 diabetes mellitus without complications
CPT/HCPCS: 99283

== ENCOUNTER 2018-04-25 05:21 | Day surgery (SDC) | payer MEDICAID ==
[2018-04-18 09:29] LABS: APPEARANCE,URINE CLEAR; BILIRUBIN,URINE NEGATIVE (NEGATIVE); COLOR,URINE YELLOW; GLUCOSE, URINE NEGATIVE (NEGATIVE); KETONES,URINE NEGATIVE (NEGATIVE); LEUKOCYTE ESTERASE,URINE NEGATIVE (NEGATIVE); NITRITE,URINE NEGATIVE (NEGATIVE); PROTEIN,URINE NEGATIVE (NEGATIVE); URINE SPECIFIC GRAVITY 1.027
[2018-04-18 10:18] LABS: HEMOGLOBIN 12.9 g/dL (12.0-15.5); MEAN CORPUSCULAR HEMOGLOBIN 28.3 pg (27.0-33.4); MEAN CORPUSCULAR HGB CONC 33.1 g/dL (32.0-36.0); MEAN CORPUSCULAR VOLUME 86 fl (80-97); PLATELET COUNT 139 10^3/uL (150-450); RED BLOOD COUNT 4.56 10^6/uL (3.72-5.28); RED CELL DISTRIBUTION WIDTH 13.4 % (11.5-14.0); WHITE BLOOD COUNT 7.4 10^3/uL (4.0-10.5)
[2018-04-18 10:52] LABS: ANION GAP 13 (5-19); BLOOD UREA NITROGEN 14 mg/dL (7-20); CALCIUM 9.3 mg/dL (8.4-10.2); CARBON DIOXIDE 28 mmol/L (22-30); CHLORIDE 102 mmol/L (98-107); GLUCOSE 149 mg/dL (75-110); POTASSIUM 4.7 mmol/L (3.6-5.0); SODIUM 142.5 mmol/L (137-145)
--- NOTE | 2018-04-18 13:36 | EKG REPORT ---
SEVERITY:- NORMAL ECG - SINUS RHYTHM : Confirmed by: Anirudh Leon MD 18-Apr-2018 13:35:28
[~2018-04-25 05:21] MED LIST changes: +CEFAZOLIN 2 GM/D5W RTU 2 GM/50 ML RTUPB IV PRN; -CEFAZOLIN INJ 1 GM VIAL IV PRN; -LACTATED RINGERS 1000 ML IV PRN; +RINGERS SOLUTION,LACTATED 1,000 ML IV PRN; -VANCOMYCIN HCL 1,000 MG in DEXTROSE 5%-WATER 250 ML IV PRN
[2018-04-25] MEDS ORDERED: DEXAMETHASONE SOD PHOSPHATE INJ 4 MG/1 ML VIAL ONE (07:02)
[2018-04-25] MEDS ORDERED: HYDROMORPHONE HCL INJ/PF 2 MG/ML AMPULE ONE (07:02)
[2018-04-25] MEDS ORDERED: PROPOFOL INJ 200 MG/20 ML VIAL IV ONE (07:02)
[2018-04-25] MEDS ORDERED: MIDAZOLAM 2 MG/2 ML INJ ONE (07:02)
[2018-04-25] MEDS ORDERED: ONDANSETRON HCL INJ/PF 4 MG/2 ML SDV ONE (07:02)
[2018-04-25] MEDS ORDERED: DIPHENHYDRAMINE HCL 50 MG/ML VIAL IV PRN (08:03)
[2018-04-25] MEDS ORDERED: MEPERIDINE HCL/PF INJ 25 MG/1 ML DISP.SYRIN IV PRN (08:03)
[2018-04-25] MEDS: BUPIVACAINE HCL 0.5 % INJ/PF 30 ML SDV ONE ×2 (08:03→08:55)
[2018-04-25] MEDS ORDERED: FENTANYL CITRATE INJ/PF 100 MCG/2 ML AMPUL IV PRN ×3 (08:03)
[2018-04-25] MEDS ORDERED: OXYCODONE-ACETAMINOPHEN 5-325 MG TABLET PO PRN (09:05)
[2018-04-25] MEDS ORDERED: ONDANSETRON HCL INJ/PF 4 MG/2 ML SDV IV PRN (09:05)
[2018-04-25] MEDS ORDERED: HYDROMORPHONE HCL INJ/PF 2 MG/ML AMPULE IV PRN (09:05)
--- NOTE | 2018-04-25 09:05 | Discharge Summary ---
Discharge Summary (SDC) - Discharge Final Diagnosis: Bilateral carpal tunnel syndrome Extensor tenosynovitis left wrist Date of Surgery: 04/25/18 Discharge Date: 04/25/18 Condition: Good Treatment or Instructions: Schedule Follow Up w/ Dr. Joseph Hall @ [facility] for Surgery to be seen in 10-14 days or as scheduled [place]: [place]: [place]: May remove dressing on postop day #3, keep incision covered and dry. Ice and elevate May begin finger range of motion attempting to make full fist. Stool softener of choice when on pain medication. Prescriptions: Oxycodone HCl 5 mg PO Q6 PRN #20 tablet PRN Reason: Referrals: NORBERT DOCKERY PA-C [Primary Care Provider] - Discharge Diet: As Tolerated Respiratory Treatments at Home: Deep Breathing/Coughing Discharge Activity: No Lifting Over 10 Pounds, No Lifting/Push/Pulling Report the Following to Your Physician Immediately: Fever over 101 Degrees, Unusual Bleeding, Redness, Swelling, Warmth, Increased Soreness
--- NOTE | 2018-04-25 09:07 | Operative Report ---
Operative Report DATE OF SURGERY: 04/25/18 PREOPERATIVE DIAGNOSIS: 1. Left extensor tenosynovitis second/third extensor compartment. 2.Bilateral carpal tunnel syndrome POSTOPERATIVE DIAGNOSIS: Same OPERATION: 1. Extensor tenosynovitis second/third dorsal compartment. 2. Bilateral endoscopic carpal tunnel release SURGEON: ELSA FERRARI ANESTHESIA: GA COMPLICATIONS: None ESTIMATED BLOOD LOSS: Minimal PROCEDURE: Indication for above procedure: 37-year-old female with history of numbness and tingling bilateral upper extremities. Patient neurodiagnostic testing demonstrating bilateral carpal tunnel syndrome. We discussed treatment options including operative versus nonoperative intervention. Patient attempted conservative management without resolution of her symptoms. We discussed possibility of unilateral versus bilateral procedure after discussing the risks and benefits of each patient elected to proceed with bilateral carpal tunnel release. Concomitantly we will also proceed with extensor tenosynovectomy of the dorsal compartment on the left which patient has developed since her previous surgery. Procedure In Detail: Patient was seen and evaluated in the preoperative holding area. The right and left upper extremity was initialized and marked. Patient received Ancef IV for bacterial prophylaxis. Patient was taken back to the operative room where transferred operative table. Patient was then placed under MAC anesthesia. Once adequately anesthetized, a nonsterile tourniquet was placed on the upper extremity. A surgical team debriefing was performed ensuring all instrumentation was available, the surgical procedure was discussed with possible concerns reviewed. The upper extremity was prepped with chlorhexidine and alcohol and draped in a sterile fashion. A timeout was done identifying correct patient, procedure and extremity everyone in attendance agree with this and verbalized no concerns.The extremity was then exsanguinated the tourniquet was inflated to 250 mmHg. On the Left a transverse skin incision was made just proximal to the wrist flexion crease ulnar to the palmaris longus. Blunt dissection was performed down to the palmaris longus tendon which was retracted radially. Deep to the palmaris longus tendon was the volar carpal ligament this was incised identifying the median nerve deep. With the use of a [place] elevator any soft tissue/synovium was freed from the undersurface of the transverse carpal ligament. The hook of hamate was identified ulnarly. The ConMed cannulas were then introduced beginning with #1 progressing to a #3 gently dilating the carpal canal. I then introduced the scope within the cannula and identified transverse carpal ligament ensuring the median nerve was not visualized within the cannula. I triangulated distally with a 25-gauge needle identifying the distal aspect of the transverse carpal ligament, to ensure protection of the superficial palmar arch. The arthroscopic knife was used to incise the transverse carpal ligament under direct visualization with the arthroscopic camera. Any excess transverse fibers that remained after the first past were carefully released with a repeat pass. The median nerve was then directly visualized radially without disruption. Once this was completed I placed the # 3 dilator and assured I got complete release of the transverse carpal ligament without residual compression. The median nerve was directly visualized and free of any overlying compression. I then turned my attention to release of the volar antebrachial fascia proximally. Once again a [place] was used to open the wound and I proceeded with cannula #1 to #3. The arthroscope was introduced into the cannula and under direct visualization the volar antebrachial fascia was released. Once this was complete I copiusly irrigated the wound with normal saline. The skin incision was closed with 4-0 Monocryl subcutaneous and a running subcuticular 4-0 Monocryl. This was reinforced with Dermabond and Steri-Strips. Longitudinal skin incision was made over the 3-4 portal. Blunt dissection performed. Branches of the superficial radial nerve identified and retracted. The third dorsal compartment was opened demonstrating hypertrophic tissue along the floor of the third dorsal compartment and tenosynovium. There was evidence of compression externally at the EPL tendon thus the distal portion of the third dorsal compartment was opened to relieve contracture the hypertrophic scar and tenosynovium was excised. With wrist extension/flexion there is no evidence of recurrent catching or clicking appreciated. The wound was then copiously irrigated with normal saline. The skin incision was closed with 4-0 Monocryl subcutaneous and a running subcuticular 4-0 Monocryl. This was reinforced with Dermabond and Steri-Strips. Sterile, 4 x 4's and a Severo bandage was placed loosely. I then proceeded with right carpal tunnel release A transverse skin incision was made just proximal to the wrist flexion crease ulnar to the palmaris longus. Blunt dissection was performed down to the palmaris longus tendon which was retracted radially. Deep to the palmaris longus tendon was the volar carpal ligament this was incised identifying the median nerve deep. With the use of a [place] elevator any soft tissue/synovium was freed from the undersurface of the transverse carpal ligament. The hook of hamate was identified ulnarly. The ConMed cannulas were then introduced beginning with #1 progressing to a #3 gently dilating the carpal canal. I then introduced the scope within the cannula and identified transverse carpal ligament ensuring the median nerve was not visualized within the cannula. I triangulated distally with a 25-gauge needle identifying the distal aspect of the transverse carpal ligament, to ensure protection of the superficial palmar arch. The arthroscopic knife was used to incise the transverse carpal ligament under direct visualization with the arthroscopic camera. Any excess transverse fibers that remained after the first past were carefully released with a repeat pass. The median nerve was then directly visualized radially without disruption. Once this was completed I placed the #3 dilator and assured I got complete release of the transverse carpal ligament without residual compression. The median nerve was directly visualized and free of any overlying compression. I then turned my attention to release of the volar antebrachial fascia proximally. Once again a [place] was used to open the wound and I proceeded with cannula #1 to #3. The arthroscope was introduced into the cannula and under direct visualization the volar antebrachial fascia was released. Once this was complete I copiusly irrigated the wound with normal saline. Sponge counts, instrument counts and needle counts were correct. The was no intraoperative complications patient tolerated the procedure well and was stable to PACU.
[2018-04-25] MEDS ORDERED: PROMETHAZINE HCL INJ 25 MG/1 ML VIAL ONE (09:10)
[2018-04-25] MEDS ORDERED: ROCURONIUM BROMIDE INJ 50 MG/5 ML VIAL IV ONE (09:30)
[2018-04-25] MEDS ORDERED: SUCCINYLCHOLINE CHLORIDE INJ 200 MG/10 ML VIAL ONE (09:30)
[2018-04-25 11:52] VITALS: BP 155/89
[2018-04-26] MEDS ORDERED: LIDOCAINE 0.5% INJ-PF (5 MG/ML) 50 ML SDV SUBCUT PRN (05:00)
[2018-04-26] MEDS ORDERED: LACTATED RINGERS 1000 ML IV PRN (05:00)
== END 2018-04-25 11:40 | disposition home or self-care (01) ==
LOC: OROUT 05:21
PROVIDERS: ATTEND Orthopaedic Surgery
DX: M65.4 Radial styloid tenosynovitis [de Quervain] (principal); M65.832 Other synovitis and tenosynovitis, left forearm; G56.03 Carpal tunnel syndrome, bilateral upper limbs; M25.532 Pain in left wrist; I10 Essential (primary) hypertension; E78.00 Pure hypercholesterolemia, unspecified; E10.9 Type 1 diabetes mellitus without complications; M19.90 Unspecified osteoarthritis, unspecified site; R20.2 Paresthesia of skin; Z88.5 Allergy status to narcotic agent; Z88.8 Allergy status to other drugs, medicaments and biological substances; Z91.040 Latex allergy status; Z79.82 Long term (current) use of aspirin; Z79.4 Long term (current) use of insulin; Z79.899 Other long term (current) drug therapy; Z79.891 Long term (current) use of opiate analgesic; Z86.73 Personal history of transient ischemic attack (TIA), and cerebral infarction without residual deficits; Z87.891 Personal history of nicotine dependence; Z01.89 Encounter for other specified special examinations
CPT/HCPCS: 93005; 36415 ×2; 82962; 84132; 85027; 81025; 80048; 81001; 93010; 29848; 25116; J2250; J3490 ×2; J1100; J1170; J2550; J0330; J2405; J2704; J0690; 1810

== ENCOUNTER 2018-04-30 16:02 | Emergency (ER) | payer MEDICAID ==
[2018-04-30] MEDS ORDERED: OXYCODONE-ACETAMINOPHEN 5-325 MG TABLET PO ONE (17:05)
--- NOTE | 2018-04-30 17:10 | ER Document Report ---
ED Hand/Wrist Injury - General Chief Complaint: Wrist Pain Stated Complaint: PAIN AFTER SURGERY Time Seen by Provider: 04/30/18 16:54 Mode of Arrival: Ambulatory Information source: Patient TRAVEL OUTSIDE OF THE [place] IN LAST 30 DAYS: No - HPI Patient complains to provider of: right wrsit pain Notes: Patient is here with complaints of right wrist pain. The patient had carpal tunnel release surgery performed to both wrists on the of last month. She currently is taking oxycodone as needed for pain. The surgery was performed by Dr. Ferrari. States that her left wrist is doing great. She has minimal pain and is able to move her hand without any significant difficulty. She states that yesterday she started to have some burning pain in her right wrist and that her fianc rolled onto her hand while they were asleep and she heard a snapping sensation in the wrist and now she has increased pain in the right wrist. She states that it feels like a fire in her wrist. She denies fever. No redness or drainage. No numbness, Raegan, weakness. No chest pain or shortness of breath. No nausea, vomiting, diarrhea. Pain is worse with any sort of movement, nothing really seems to make it better. She took 1 of her oxycodone earlier this morning and took ibuprofen prior to arrival. No other complaints at this time. - Related Data Allergies/Adverse Reactions: adhesive tape [Adhesive Tape] Allergy (Severe, Verified 04/30/18 16:02) Generalized Itching haloperidol [From Haldol] Allergy (Severe, Verified 04/30/18 16:02) "Panic attack" prochlorperazine maleate [From Compazine] Allergy (Severe, Verified 04/30/18 16: 02) Shortness of breath latex [Latex] Allergy (Intermediate, Verified 04/30/18 16:02) Hives morphine Adverse Reaction (Severe, Verified 04/30/18 16:02) ? metoclopramide HCl [From Reglan] Adverse Reaction (Intermediate, Verified 16:02) "spazed out" Past Medical History - Social History Smoking Status: Current Every Day Smoker Family History: None - Past Medical History Cardiac Medical History: Reports: Hx Hypercholesterolemia, Hx Hypertension Denies: Hx Coronary Artery Disease, Hx Heart Attack Pulmonary Medical History: Denies: Hx Asthma, Hx Bronchitis, Hx COPD, Hx Pneumonia Neurological Medical History: Reports: Hx Migraine. Denies: Hx Cerebrovascular Accident, Hx Seizures Endocrine Medical History: Reports: Hx Diabetes Mellitus Type 2 Renal/ Medical History: Denies: Hx Peritoneal Dialysis GI Medical History: Musculoskeltal Medical History: Reports Hx Arthritis - B/L WRIST Psychiatric Medical History: Reports: Hx Depression Infectious Medical History: Past Surgical History: Reports: Hx Abdominal Surgery - , Hx Appendectomy, Hx Bowel Surgery, Hx Section, Hx Cholecystectomy, Hx Hysterectomy, Hx Tonsillectomy, Hx Tubal Ligation. Denies: Hx Pacemaker - Immunizations Hx Diphtheria, Pertussis, Tetanus Vaccination: Yes Review of Systems - Review of Systems -: Yes All other systems reviewed and negative Physical Exam - Vital signs Vitals: Temp Pulse Resp BP Pulse Ox 98.8 F 97 24 H 104/71 96 04/30/18 16:10 04/30/18 16:10 04/30/18 16:10 04/30/18 16:10 04/30/18 16:10 - Notes Notes: GENERAL: alert, cooperative, nontoxic, no distress. HEAD: normocephalic, atraumatic EYES: conjunctiva pink without discharge, no external redness or swelling. EARS: no external swelling, no external redness NOSE: atraumatic, no external swelling MOUTH/THROAT: mucous membranes moist and pink NECK: soft, supple, full range of motion, no meningismus. CHEST: no distress, lungs clear and equal throughout. No wheezing, rales, rhonchi. CARDIAC: regular rate and rhythm, no murmur, normal capillary refill, normal pulses. BACK: full range of motion, no CVA tenderness. EXTREMITIES: Dressing removed from the right wrist. Patient has a well approximated incision with Steri-Strips in place. There is no surrounding redness, no drainage. She has some postoperative bruising noted. There is no redness to the hand or the forearm. Normal radial pulse. Normal cap refill and sensation distally. She does have tenderness to palpation along the volar aspect of the right wrist. NEURO: alert and oriented 3, no focal deficits, full range of motion of all extremities. PYSCH: appropriate mood, affect. Patient is cooperative. SKIN: pink, warm, dry, no rash. Course - Re-evaluation Re-evalutation: 04/30/18 17:56 Patient is nontoxic-appearing with stable vitals. She is here with complaints of right wrist pain. She had carpal tunnel surgery done to both wrists on the . She states that her left wrist is doing great but since yesterday she has had burning in the right wrist area. She also states that this morning her fianc rolled over onto her hand and she felt a snap in this area. Her incision looks great, is well approximated with no redness, drainage, swelling. Steri-Strips are in place. She does have some mild bruising to the volar aspect of the left forearm/wrist area. There is no redness to this area or to the hand. She has a normal pulse as well as sensation distally. X-ray of the right wrist shows no acute abnormality per the radiologist. Patient describes his pain as a burning type sensation. We will rewrap her hand. She is on ibuprofen and already has oxycodone at home. We will try her on gabapentin and I instructed her to call Dr. Ferrari tomorrow for a sooner follow-up appointment to recheck her wrist. At this point she has no signs of compartment syndrome, infection, vascular compromise or other serious source of her pain. The patient's emergency department workup and current diagnosis were explained to the patient and or family. Follow-up instructions were provided. Medications if prescribed were discussed. Instructions for when to return to the emergency department including specific worrisome symptoms were discussed with the patient and/or family. - Vital Signs Vital signs: Temp Pulse Resp BP Pulse Ox 98.8 F 97 24 H 104/71 96 04/30/18 16:10 04/30/18 16:10 04/30/18 16:10 04/30/18 16:10 04/30/18 16:10 - Diagnostic Test Radiology reviewed: Image reviewed, Reports reviewed - Negative right wrist Discharge - Discharge Clinical Impression: Post-op pain Condition: Stable Disposition: HOME, SELF-CARE Instructions: Dressing Instructions for Open Wounds ([facility]), Arm Pain, Nonspecific ([facility]) Additional Instructions: Take medications as prescribed. Follow-up with Dr. Ferrari at the next available appointment. Follow-up sooner for worsening pain, fever, weakness, drainage, any further concerns. Prescriptions: Gabapentin [Neurontin 300 mg Capsule] 300 mg PO ASDIR #33 cap Forms: Smoking Cessation Education Referrals: NORBERT DOCKERY PA-C [COMMUNITY BASED STAFF] - Follow up as needed ELSA FERRARI DO [ACTIVE STAFF] - Follow up as needed
--- NOTE | 2018-04-30 17:44 | RADIOLOGY REPORT (SQ) ---
EXAM DESCRIPTION: WRIST RIGHT 3 VIEWS COMPLETED DATE/TIME: 04/30/2018 5:34 pm REASON FOR STUDY: pain COMPARISON: 10/02/2010 NUMBER OF VIEWS: Three views. TECHNIQUE: AP, lateral, and oblique radiographic images acquired of the right wrist. LIMITATIONS: None. FINDINGS: MINERALIZATION: Normal. BONES: No acute fracture or dislocation. No worrisome bone lesions. Normal alignment. SOFT TISSUES: No soft tissue swelling. No foreign body. OTHER: No other significant finding. IMPRESSION: NEGATIVE STUDY OF THE RIGHT WRIST. NO RADIOGRAPHIC EVIDENCE OF ACUTE INJURY. TECHNICAL DOCUMENTATION: JOB ID: [id number] [employer]- All Rights Reserved Reading location - IP/workstation name: [email or web address]
[2018-04-30 18:18] VITALS: BP 104/63
== END 2018-04-30 18:17 | disposition home or self-care (01) ==
LOC: ER 16:02
DX: G89.18 Other acute postprocedural pain (principal); M25.531 Pain in right wrist; E11.9 Type 2 diabetes mellitus without complications; I10 Essential (primary) hypertension; Z88.6 Allergy status to analgesic agent; Z91.040 Latex allergy status; Z90.49 Acquired absence of other specified parts of digestive tract; Z90.710 Acquired absence of both cervix and uterus
CPT/HCPCS: 99283

== ENCOUNTER 2018-06-06 07:08 | Emergency (ER) | payer MEDICAID ==
[2018-06-06 07:19] VITALS: BP 123/78
[2018-06-06] MEDS ORDERED: HYDROCODONE/ACETAMINOPHEN 5-325 MG TABLET PO ONE (07:47)
--- NOTE | 2018-06-06 07:49 | ER Document Report ---
ED Skin Rash/Insect Bite/Abscs - General Chief Complaint: Sunburn Stated Complaint: SKIN ISSUE Time Seen by Provider: 06/06/18 07:47 Mode of Arrival: Ambulatory Information source: Patient Notes: Patient is a 37-year-old female who presents to the ER today for "severe sunburn " to the chest and upper back. Patient [place] was [place] the [place] 3 [place] and did not put on sunscreen "because I was too busy watching my children play. " Patient states that she has been taking Tylenol, Motrin and Percocet at home for the pain which is not helping. Patient admits to putting aloe vera lotion on the sunburn which is also not helping. Patient admits to blisters to the upper back. TRAVEL OUTSIDE OF THE [place] IN LAST 30 DAYS: No - Related Data Allergies/Adverse Reactions: adhesive tape [Adhesive Tape] Allergy (Severe, Verified 06/06/18 07:43) Generalized Itching haloperidol [From Haldol] Allergy (Severe, Verified 06/06/18 07:43) "Panic attack" prochlorperazine maleate [From Compazine] Allergy (Severe, Verified 06/06/18 07: 43) Shortness of breath latex [Latex] Allergy (Intermediate, Verified 06/06/18 07:43) Hives morphine Adverse Reaction (Severe, Verified 06/06/18 07:43) ? metoclopramide HCl [From Reglan] Adverse Reaction (Intermediate, Verified 07:43) "spazed out" Past Medical History - General Information source: Patient - Social History Smoking Status: Never Smoker Chew tobacco use (# tins/day): No Frequency of alcohol use: None Drug Abuse: None Family History: None Patient has suicidal ideation: No Patient has homicidal ideation: No - Past Medical History Cardiac Medical History: Reports: Hx Hypercholesterolemia, Hx Hypertension Denies: Hx Coronary Artery Disease, Hx Heart Attack Pulmonary Medical History: Denies: Hx Asthma, Hx Bronchitis, Hx COPD, Hx Pneumonia Neurological Medical History: Reports: Hx Migraine. Denies: Hx Cerebrovascular Accident, Hx Seizures Endocrine Medical History: Reports: Hx Diabetes Mellitus Type 2 Renal/ Medical History: Denies: Hx Peritoneal Dialysis GI Medical History: Musculoskeltal Medical History: Reports Hx Arthritis - B/L WRIST Psychiatric Medical History: Reports: Hx Depression Infectious Medical History: Past Surgical History: Reports: Hx Abdominal Surgery - , Hx Appendectomy, Hx Bowel Surgery, Hx Section, Hx Cholecystectomy, Hx Hysterectomy, Hx Orthopedic Surgery - carpal tunnel surgery, Hx Tonsillectomy, Hx Tubal Ligation. Denies: Hx Pacemaker - Immunizations Hx Diphtheria, Pertussis, Tetanus Vaccination: Yes Review of Systems - Review of Systems Constitutional: No symptoms reported EENT: No symptoms reported Cardiovascular: No symptoms reported Respiratory: No symptoms reported Gastrointestinal: No symptoms reported Genitourinary: No symptoms reported Female Genitourinary: No symptoms reported Musculoskeletal: No symptoms reported Skin: See HPI Hematologic/Lymphatic: No symptoms reported Neurological/Psychological: No symptoms reported Physical Exam - Vital signs Vitals: Temp Pulse Resp BP Pulse Ox 99.0 F 105 H 18 123/78 97 06/06/18 07:18 06/06/18 07:18 06/06/18 07:18 06/06/18 07:18 06/06/18 07:18 - Notes Notes: PHYSICAL EXAMINATION: GENERAL: Well-appearing and in no acute distress. HEAD: Atraumatic, normocephalic. EYES: Pupils equal round and reactive to light, extraocular movements intact, sclera anicteric, conjunctiva are normal. NECK: Normal range of motion, supple without lymphadenopathy LUNGS: CTAB and equal. No wheezes rales or rhonchi. HEART: Regular rate and rhythm without murmurs EXTREMITIES: Normal range of motion, no pitting edema. No cyanosis. NEUROLOGICAL: Cranial nerves grossly intact. Normal sensory/motor exams. PSYCH: Normal mood, normal affect. SKIN: Warm, Dry, normal turgor, upper chest and upper back with bright red sunburn with blisters, tender to palpation Course - Re-evaluation Re-evalutation: 06/06/18 17:20 Patient will be prescribed silver sulfadiazine cream. I will not provide her with any narcotic pain medication for her sunburn today, I have prescribed Motrin. - Vital Signs Vital signs: Temp Pulse Resp BP Pulse Ox 99.0 F 105 H 18 123/78 97 06/06/18 07:18 06/06/18 07:18 06/06/18 07:18 06/06/18 07:18 06/06/18 07:18 Discharge - Discharge Clinical Impression: Second degree sunburn Condition: Stable Disposition: HOME, SELF-CARE Instructions: Silvadene Cream ([facility]) Additional Instructions: Return immediately for any new or worsening symptoms. Follow up with primary care provider, call tomorrow to make followup appointment. Prescriptions: Ibuprofen [Motrin 800 mg Tablet] 800 mg PO Q8H PRN #30 tab PRN Reason: Silver Sulfadiazine [Silvadene 1% Cream 400 gm] 1 applic TP BID #1 jar Referrals: TAHIR JACKSON, [employer] [Primary Care Provider] - Follow up as needed
== END 2018-06-06 08:08 | disposition home or self-care (01) ==
LOC: ER 07:08
DX: L55.1 Sunburn of second degree (principal); E11.9 Type 2 diabetes mellitus without complications; I10 Essential (primary) hypertension; Z91.048 Other nonmedicinal substance allergy status; Z88.8 Allergy status to other drugs, medicaments and biological substances; Z91.040 Latex allergy status
CPT/HCPCS: 99282

== ENCOUNTER 2018-06-10 05:14 | Emergency (ER) | payer MEDICAID ==
--- NOTE | 2018-06-10 06:58 | ER Document Report ---
ED General - General Chief Complaint: Sunburn Stated Complaint: BURN Time Seen by Provider: 06/10/18 06:11 TRAVEL OUTSIDE OF THE [place] IN LAST 30 DAYS: No - HPI Patient complains to provider of: Sunburn Notes: Patient coming in for evaluation of sunburn. Patient was seen a few days ago for sunburn given Silvadene cream as the patient had blistering second degree sunburn was told take Tylenol Motrin for pain control patient coming the day because of some drainage of the summer. Most the drainage is were blisters have popped on the bilateral breasts. Patient denies any fever chills that she is also using aloe cane for her pain control. - Related Data Allergies/Adverse Reactions: adhesive tape [Adhesive Tape] Allergy (Severe, Verified 06/06/18 07:43) Generalized Itching haloperidol [From Haldol] Allergy (Severe, Verified 06/06/18 07:43) "Panic attack" prochlorperazine maleate [From Compazine] Allergy (Severe, Verified 06/06/18 07: 43) Shortness of breath latex [Latex] Allergy (Intermediate, Verified 06/06/18 07:43) Hives morphine Adverse Reaction (Severe, Verified 06/06/18 07:43) ? metoclopramide HCl [From Reglan] Adverse Reaction (Intermediate, Verified 07:43) "spazed out" Past Medical History - Social History Smoking Status: Never Smoker Chew tobacco use (# tins/day): No Frequency of alcohol use: Rare Drug Abuse: None Family History: None Patient has suicidal ideation: No Patient has homicidal ideation: No - Past Medical History Cardiac Medical History: Reports: Hx Hypercholesterolemia, Hx Hypertension Denies: Hx Coronary Artery Disease, Hx Heart Attack Pulmonary Medical History: Denies: Hx Asthma, Hx Bronchitis, Hx COPD, Hx Pneumonia Neurological Medical History: Reports: Hx Migraine. Denies: Hx Cerebrovascular Accident, Hx Seizures Endocrine Medical History: Reports: Hx Diabetes Mellitus Type 2 Renal/ Medical History: Denies: Hx Peritoneal Dialysis GI Medical History: Musculoskeletal Medical History: Reports Hx Arthritis - B/L WRIST Psychiatric Medical History: Reports: Hx Depression Infectious Medical History: Past Surgical History: Reports: Hx Abdominal Surgery - , Hx Appendectomy, Hx Bowel Surgery, Hx Section, Hx Cholecystectomy, Hx Hysterectomy, Hx Orthopedic Surgery - carpal tunnel surgery, Hx Tonsillectomy, Hx Tubal Ligation. Denies: Hx Pacemaker - Immunizations Hx Diphtheria, Pertussis, Tetanus Vaccination: Yes Review of Systems - Review of Systems Constitutional: No symptoms reported EENT: No symptoms reported Cardiovascular: No symptoms reported Respiratory: No symptoms reported Gastrointestinal: No symptoms reported Genitourinary: No symptoms reported Female Genitourinary: No symptoms reported Musculoskeletal: No symptoms reported Skin: Other - Sunburn Hematologic/Lymphatic: No symptoms reported Neurological/Psychological: No symptoms reported Physical Exam - Vital signs Vitals: Temp Pulse Resp BP Pulse Ox 99.0 F 99 20 121/86 H 98 06/10/18 05:20 06/10/18 05:20 06/10/18 05:20 06/10/18 05:20 06/10/18 05:20 Interpretation: Normal - General General appearance: Appears well, Alert - HEENT Head: Normocephalic, Atraumatic Eyes: Normal Pupils: PERRL - Respiratory Respiratory status: No respiratory distress Chest status: Nontender Breath sounds: Normal Chest palpation: Normal - Cardiovascular Rhythm: Regular Heart sounds: Normal auscultation Murmur: No - Abdominal Inspection: Normal Distension: No distension Bowel sounds: Normal Tenderness: Nontender Organomegaly: No organomegaly - Back Back: Normal, Nontender - Extremities General upper extremity: Normal inspection, Nontender, Normal color, Normal ROM , Normal temperature General lower extremity: Normal inspection, Nontender, Normal color, Normal ROM , Normal temperature, Normal weight bearing. No: Kory's sign - Neurological Neuro grossly intact: Yes Cognition: Normal Orientation: AAOx4 Harrison Coma Scale Eye Opening: Spontaneous Harrison Coma Scale Verbal: Oriented Harrison Coma Scale Motor: Obeys Commands G[place] Coma Scale Total: 15 Speech: Normal Motor strength normal: LUE, RUE, LLE, RLE Sensory: Normal - Psychological Associated symptoms: Normal affect, Normal mood - Skin Skin Temperature: Warm Skin Moisture: Dry Skin Color: Other - Mr. first and second degree sunburn on the patient's breast and upper chest and upper back. Patient does have some peeling occurring. There are signs of blisters that are now small. Examination of the anterior chest along the breast does show signs were blisters have popped and currently is a yellow clear serous fluid that is draining from the wounds. No signs of cellulitis or infection. Course - Re-evaluation Re-evalutation: 06/10/18 14:35 Patient was encouraged to continue with good wound care. Upon finalizing the patient visit patient also relates that she is having some slight nausea when she is drinking plenty of fluids. Will give the patient some Phenergan for her nausea. Patient states she is taking this past without difficulty. Patient is continue with Silvadene cream Xylocaine follow-up with primary care physician avoiding sun exposure for the next 1-2 weeks - Vital Signs Vital signs: Temp Pulse Resp BP Pulse Ox 98.6 F 96 18 113/83 97 06/10/18 07:11 06/10/18 07:11 06/10/18 07:11 06/10/18 07:11 06/10/18 07:11 Discharge - Discharge Clinical Impression: Second degree sunburn Condition: Good Disposition: HOME, SELF-CARE Instructions: Hernandez ([facility]), Silvadene Cream ([facility]) Additional Instructions: Your evaluation shows slight drainage of the tissue of the breast however this is not consistent with a infection. Please continue to apply the Silvadene cream and the aloe with lidocaine for treatment. Please avoid any sun exposure. I will give you a prescription for Phenergan for any nausea. He states he has taken this before without any issues. Highly recommend taking Motrin 600 mg along with Tylenol 650-1000 mg 3 times a day for your pain control. Prescriptions: Promethazine HCl [Phenergan 25 mg Tablet] 25 mg PO Q6 #30 tablet Referrals: TAHIR JACKSON, DEE [Primary Care Provider] - Follow up in 1 week
[2018-06-10] MEDS ORDERED: PROMETHAZINE HCL 25 MG TABLET PO ONE (06:59)
[2018-06-10 07:12] VITALS: BP 113/83
== END 2018-06-10 07:12 | disposition home or self-care (01) ==
LOC: ER 05:14
DX: L55.1 Sunburn of second degree (principal); E11.9 Type 2 diabetes mellitus without complications; I10 Essential (primary) hypertension; R11.0 Nausea; Z91.048 Other nonmedicinal substance allergy status; Z88.8 Allergy status to other drugs, medicaments and biological substances; Z91.040 Latex allergy status
CPT/HCPCS: 99282; J3490

== ENCOUNTER 2018-08-05 19:15 | Emergency (ER) | payer MEDICAID ==
--- NOTE | 2018-08-05 20:04 | ER Document Report ---
ED General - General Chief Complaint: Wrist Injury Stated Complaint: LEFT WRIST INJURY Time Seen by Provider: 08/05/18 19:40 Mode of Arrival: Ambulatory Information source: Patient Notes: 37-year-old female presents with complaint of left wrist pain that started 1 hour prior to arrival. Patient states that she was reaching in between her couch looking for her 's keys when she pulled her arm out and struck it against the metal bar. Patient has had aching constant pain since that time. Patient has had a recent carpal tunnel and trigger finger surgery with Dr. Hall. Patient tried Motrin without relief. TRAVEL OUTSIDE OF THE [place] IN LAST 30 DAYS: No - HPI Onset: Just prior to arrival Onset/Duration: Sudden Quality of pain: Throbbing Severity: Moderate Associated symptoms: None Exacerbated by: Movement Relieved by: Denies Similar symptoms previously: Yes Recently seen / treated by doctor: Yes - Related Data Allergies/Adverse Reactions: adhesive tape [Adhesive Tape] Allergy (Severe, Verified 06/06/18 07:43) Generalized Itching haloperidol [From Haldol] Allergy (Severe, Verified 06/06/18 07:43) "Panic attack" prochlorperazine maleate [From Compazine] Allergy (Severe, Verified 06/06/18 07: 43) Shortness of breath latex [Latex] Allergy (Intermediate, Verified 06/06/18 07:43) Hives morphine Adverse Reaction (Severe, Verified 06/06/18 07:43) ? metoclopramide HCl [From Reglan] Adverse Reaction (Intermediate, Verified 07:43) "spazed out" Past Medical History - General Information source: Patient, [facility] Records - Social History Smoking Status: Former Smoker Chew tobacco use (# tins/day): No Frequency of alcohol use: None Drug Abuse: None Lives with: Spouse/Significant other Family History: None Patient has suicidal ideation: No Patient has homicidal ideation: No - Past Medical History Cardiac Medical History: Reports: Hx Hypercholesterolemia, Hx Hypertension Denies: Hx Coronary Artery Disease, Hx Heart Attack Pulmonary Medical History: Denies: Hx Asthma, Hx Bronchitis, Hx COPD, Hx Pneumonia Neurological Medical History: Reports: Hx Migraine. Denies: Hx Cerebrovascular Accident, Hx Seizures Endocrine Medical History: Reports: Hx Diabetes Mellitus Type 2 Renal/ Medical History: Denies: Hx Peritoneal Dialysis GI Medical History: Musculoskeletal Medical History: Reports Hx Arthritis - B/L WRIST Psychiatric Medical History: Reports: Hx Depression Infectious Medical History: Past Surgical History: Reports: Hx Abdominal Surgery - , Hx Appendectomy, Hx Bowel Surgery, Hx Section, Hx Cholecystectomy, Hx Hysterectomy, Hx Orthopedic Surgery - carpal tunnel surgery, Hx Tonsillectomy, Hx Tubal Ligation. Denies: Hx Pacemaker - Immunizations Hx Diphtheria, Pertussis, Tetanus Vaccination: Yes Review of Systems - Review of Systems Notes: REVIEW OF SYSTEMS: CONSTITUTIONAL : Denies fever, chills, or sweats. Denies recent illness. Denies weight loss, recent hospitalizations. EENT: Denies visual changes, eye pain. Denies sore throat, oral lesions, difficulty swallowing. CARDIOVASCULAR: Denies chest pain. Denies palpitations. Denies lower extremity edema. RESPIRATORY: Denies cough. Denies shortness of breath, wheezing. GASTROINTESTINAL: Denies abdominal pain or distention. Denies nausea, vomiting , or diarrhea. Denies blood in vomitus, stools, or per rectum. Denies black, tarry stools. Denies constipation. GENITOURINARY: Denies difficulty urinating, painful urination, frequency, blood in urine, or vaginal discharge. MUSCULOSKELETAL: Denies back or neck pain or stiffness. SKIN: Denies rash, lesions or sores. HEMATOLOGIC : Denies easy bruising or bleeding. LYMPHATIC: Denies swollen glands. NEUROLOGICAL: Denies confusion or altered mental status. Denies loss of consciousness. Denies dizziness or lightheadedness. Denies headache. Denies weakness or paralysis. Denies problems difficulty with ambulation, slurred speech. Denies sensory loss, numbness, or tingling. Denies seizures. PSYCHIATRIC: Denies anxiety or stress. Denies depression, suicidal ideation, or homicidal ideation. Denies visual or auditory hallucinations. Physical Exam - Vital signs Vitals: Temp Pulse Resp BP Pulse Ox 98.2 F 107 H 18 128/75 H 96 08/05/18 19:26 08/05/18 19:26 08/05/18 19:26 08/05/18 19:26 08/05/18 19:26 - Notes Notes: PHYSICAL EXAMINATION: GENERAL: Well-appearing, well-nourished and in no acute distress. HEAD: Atraumatic, normocephalic. EYES: Pupils equal round and reactive to light, extraocular movements intact, conjunctiva are normal. ENT: Nares patent, oropharynx clear without exudates. Moist mucous membranes. NECK: Normal range of motion, supple without lymphadenopathy LUNGS: Breath sounds clear to auscultation bilaterally and equal. No wheezes rales or rhonchi. HEART: Regular rate and rhythm without murmurs ABDOMEN: Soft, nontender, nondistended abdomen. No guarding, no rebound. No masses appreciated. Female : deferred Musculoskeletal: Normal range of motion, no pitting or edema. Left wrist- tender to palpation, no obvious deformity, no neuro deficits, sensation intact, cap refill less than 2 seconds. NEUROLOGICAL: Cranial nerves grossly intact. Normal speech, normal gait. Normal sensory, motor exams PSYCH: Normal mood, normal affect. SKIN: Warm, Dry, normal turgor, no rashes or lesions noted. Course - Vital Signs Vital signs: Temp Pulse Resp BP Pulse Ox 98.2 F 107 H 18 128/75 H 96 08/05/18 19:26 08/05/18 19:26 08/05/18 19:26 08/05/18 19:26 08/05/18 19:26 Discharge - Discharge Clinical Impression: Contusion of wrist, left Qualifiers: Encounter type: initial encounter Qualified Code(s): S60.212A - Contusion of left wrist, initial encounter Condition: Good Disposition: HOME, SELF-CARE Instructions: Contusion ([facility]) Additional Instructions: Your x-rays today do not show any evidence of a broken bone. Please ice her wrist, use the wrist splint that you have at home and continue taking ibuprofen as you already do. If your pain does not improve please follow-up with your orthopedic surgeon Dr. Hall. Most prescribed medications have multiple side effects. The safest thing to do is when filling your prescription please speak to your pharmacist regarding possible interactions with your normal home medications and over the counter medications such as Ibuprofen, Tylenol, Benadryl.. If you experience any symptoms that cause you discomfort or concern you should discontinue the medication immediately and return to the emergency room or call your primary care physician. The pain medicine you're taking prescribed as a narcotic. There are several important things you should know about this medicine: 1. This medicine contains Tylenol: It is important that you do not take Tylenol (or acetaminophen) while on this medicine. Tylenol is metabolized by the liver and taking too much Tylenol (acetaminophen) can lay to liver damage and even liver failure. 2. Taking narcotics for too long can lead to physical and mental dependence. Take this medicine only if really needed and in the lowest quantity to achieve pain relief. 3. Do not drink alcohol while on this medicine. Alcohol interacts with narcotics and the combination can be dangerous. 4. Do not drive or operate machinery while on this medicine. 5. Narcotics do cause constipation, so drink plenty of fluids and daily stool softeners. Prescriptions: Hydrocodone/Acetaminophen [[place] 5-325 mg Tablet] 1 tab PO Q6H #6 tablet Referrals: TAHIR JACKSON, [employer] [Primary Care Provider] - Follow up as needed
[2018-08-05] MEDS ORDERED: HYDROCODONE/ACETAMINOPHEN 5-325 MG TABLET PO ONE (20:05)
--- NOTE | 2018-08-05 20:12 | RADIOLOGY REPORT (SQ) ---
EXAM DESCRIPTION: WRIST LEFT 3 VIEWS COMPLETED DATE/TIME: 08/05/2018 7:56 pm REASON FOR STUDY: injury COMPARISON: None. NUMBER OF VIEWS: Three views. TECHNIQUE: AP, lateral, and oblique radiographic images acquired of the left wrist. LIMITATIONS: None. FINDINGS: MINERALIZATION: Normal. BONES: Old avulsion injury or apophysis radial styloid. No acute fracture. SOFT TISSUES: No soft tissue swelling. No foreign body. OTHER: No other significant finding. IMPRESSION: NO RADIOGRAPHIC EVIDENCE OF ACUTE INJURY. TECHNICAL DOCUMENTATION: JOB ID: [id number] [employer]- All Rights Reserved Reading location - IP/workstation name: [email or web address]
[2018-08-05 20:38] VITALS: BP 115/66
== END 2018-08-05 20:38 | disposition home or self-care (01) ==
LOC: ER 19:15
DX: S60.212A Contusion of left wrist, initial encounter (principal); W22.8XXA Striking against or struck by other objects, initial encounter; Y93.89 Activity, other specified; I10 Essential (primary) hypertension; E11.9 Type 2 diabetes mellitus without complications; Z91.048 Other nonmedicinal substance allergy status; Z88.8 Allergy status to other drugs, medicaments and biological substances; Z91.040 Latex allergy status; Z87.891 Personal history of nicotine dependence
CPT/HCPCS: 99283

== ENCOUNTER 2018-08-16 07:30 | Emergency (ER) | payer MEDICAID ==
[2018-08-16] MEDS ORDERED: PREDNISONE 20 MG TABLET PO ONE (08:40)
[2018-08-16] MEDS ORDERED: IPRATROPIUM/ALBUTEROL 0.5-2.5 MG/3 ML AMPUL NEB ONE (08:40)
--- NOTE | 2018-08-16 08:41 | ER Document Report ---
HPI - HPI Patient complains to provider of: Cough, wheezing Onset: Last week Onset/Duration: Persistent Quality of pain: Achy Pain Level: 4 Context: Patient presents complaining of nonproductive cough for the past week. Patient reports temperature of 1012 days ago. Patient states she has been having wheezing. Patient denies any history of asthma. Associated Symptoms: Nonproductive cough, Fever. denies: Vomiting Exacerbated by: Denies Relieved by: Denies Similar symptoms previously: Yes Recently seen / treated by doctor: No - ROS ROS below otherwise negative: Yes Systems Reviewed and Negative: Yes All other systems reviewed and negative - CONSTITUTIONAL Constitutional: REPORTS: Fever - NEURO Neurology: DENIES: Headache - RESPIRATORY Respiratory: REPORTS: Coughing - GASTROINTESTINAL Gastrointestinal: DENIES: Nausea, Patient vomiting - REPRODUCTIVE Reproductive: DENIES: : - MUSCULOSKELETAL Musculoskeletal: DENIES: Back Pain - DERM Skin Color: Normal Skin Problems: None Past Medical History - General Information source: Patient - Social History Smoking Status: Never Smoker Frequency of alcohol use: None Drug Abuse: None Lives with: Family Family History: None - Past Medical History Cardiac Medical History: Reports: Hx Hypercholesterolemia, Hx Hypertension Denies: Hx Coronary Artery Disease, Hx Heart Attack Pulmonary Medical History: Denies: Hx Asthma, Hx Bronchitis, Hx COPD, Hx Pneumonia Neurological Medical History: Reports: Hx Migraine. Denies: Hx Cerebrovascular Accident, Hx Seizures Endocrine Medical History: Reports: Hx Diabetes Mellitus Type 2 Renal/ Medical History: Denies: Hx Peritoneal Dialysis GI Medical History: Musculoskeletal Medical History: Reports Hx Arthritis - B/L WRIST Psychiatric Medical History: Reports: Hx Depression Infectious Medical History: Past Surgical History: Reports: Hx Abdominal Surgery - , Hx Appendectomy, Hx Bowel Surgery, Hx Section, Hx Cholecystectomy, Hx Hysterectomy, Hx Orthopedic Surgery - carpal tunnel surgery, Hx Tonsillectomy, Hx Tubal Ligation. Denies: Hx Pacemaker - Immunizations Hx Diphtheria, Pertussis, Tetanus Vaccination: Yes Vertical Provider Document - CONSTITUTIONAL Agree With Documented VS: Yes Exam Limitations: No Limitations General Appearance: WD/WN, No Apparent Distress - INFECTION CONTROL TRAVEL OUTSIDE OF THE [place] IN LAST 30 DAYS: No - HEENT HEENT: Atraumatic, Normal ENT Exam, Normocephalic - NECK Neck: Normal Inspection, Supple. negative: Lymphadenopathy-Left, Lymphadenopathy-Right - RESPIRATORY Respiratory: No Respiratory Distress, Rhonchi, Wheezing - CARDIOVASCULAR Cardiovascular: Regular Rate, Regular Rhythm, No Murmur - BACK Back: Normal Inspection - MUSCULOSKELETAL/EXTREMETIES Musculoskeletal/Extremeties: MAEW - NEURO Level of Consciousness: Awake, Alert, Appropriate Motor/Sensory: No Motor Deficit - DERM Integumentary: Warm, Dry, No Rash Course - Re-evaluation Re-evalutation: 08/16/18 10:32 Respirations even and unlabored, patient continues with scattered wheezing with coughing. No concern for pneumonia at this time. Good return precautions given. - Vital Signs Vital signs: Temp Pulse Resp BP Pulse Ox 97.7 F 102 H 20 139/78 H 97 08/16/18 07:35 08/16/18 07:35 08/16/18 07:35 08/16/18 07:35 08/16/18 07:35 - Diagnostic Test Radiology reviewed: Reports reviewed Discharge - Discharge Clinical Impression: Wheezing Upper respiratory infection Qualifiers: URI type: unspecified URI Qualified Code(s): J06.9 - Acute upper respiratory infection, unspecified Condition: Stable Disposition: HOME, SELF-CARE Instructions: Inhaled Bronchodilators ([facility]), Steroid Medication, Upper Respiratory Illness ([facility]) Additional Instructions: Return immediately for any new or worsening symptoms Followup with your primary care provider, call tomorrow to make a followup appointment Prescriptions: Benzonatate [Tessalon Perle 100 mg Capsule] 100 mg PO Q8HP PRN #20 cap PRN Reason: Albuterol Sulfate [Ventolin 0.083% Neb 2.5 mg/3 ml Ampul] 1 vial NEB Q4 PRN #30 vial PRN Reason: Prednisone [Deltasone 10 mg Tablet] 10 mg PO ASDIR PRN #21 tablet PRN Reason: Referrals: EVELYN PAULA MD [Primary Care Provider] - Follow up tomorrow
--- NOTE | 2018-08-16 09:06 | RADIOLOGY REPORT (SQ) ---
EXAM DESCRIPTION: CHEST 2 VIEWS COMPLETED DATE/TIME: 08/16/2018 8:56 am REASON FOR STUDY: cough COMPARISON: June 2017 EXAM PARAMETERS: NUMBER OF VIEWS: two views TECHNIQUE: Digital Frontal and Lateral radiographic views of the chest acquired. RADIATION DOSE: NA LIMITATIONS: none FINDINGS: LUNGS AND PLEURA: No opacities, masses or pneumothorax. No pleural effusion. MEDIASTINUM AND HILAR STRUCTURES: No masses or contour abnormalities. HEART AND VASCULAR STRUCTURES: Heart normal size. No evidence for failure. BONES: No acute findings. HARDWARE: None in the chest. OTHER: No other significant finding. IMPRESSION: NO ACUTE RADIOGRAPHIC FINDING IN THE CHEST. TECHNICAL DOCUMENTATION: JOB ID: [id number] [employer]- All Rights Reserved Reading location - IP/workstation name: [email or web address]
[2018-08-16] MEDS ORDERED: ALBUTEROL SULFATE 0.083% NEB 2.5 MG/3 ML AMPUL NEB ONE ×2 (09:15→09:38)
[2018-08-16 10:51] VITALS: BP 134/80
== END 2018-08-16 10:53 | disposition home or self-care (01) ==
LOC: ER 07:30
DX: J06.9 Acute upper respiratory infection, unspecified (principal); R06.2 Wheezing; R05 Cough
CPT/HCPCS: 94640 ×2; 99283; 71046; J7512; J7620

== ENCOUNTER 2018-08-20 19:57 | Emergency (ER) | payer MEDICAID ==
[2018-08-20] MEDS ORDERED: IPRATROPIUM/ALBUTEROL 0.5-2.5 MG/3 ML AMPUL NEB ONE (20:13)
[2018-08-20] MEDS ORDERED: PREDNISONE 20 MG TABLET PO ONE (20:13)
[2018-08-20] MEDS: ALBUTEROL SULFATE 0.083% NEB 2.5 MG/3 ML AMPUL NEB SCH ×2 (20:31→20:39)
[2018-08-20] MEDS ORDERED: METHYLPREDNISOLONE INJ 125 MG/2 ML SDV ONE (20:32)
[2018-08-20] MEDS ORDERED: MAGNESIUM SULFATE/D5W 2 GM/200 ML RTUPB IV ONE (20:48)
[2018-08-20] MEDS ORDERED: HYDROMORPHONE HCL INJ/PF 2 MG/ML AMPULE IV ONE (20:52)
[2018-08-20] MEDS: MAGNESIUM SULFATE/D5W 1 GM/100 ML RTUPB IV SCH ×2 (20:54→21:13)
--- NOTE | 2018-08-20 20:56 | ER Document Report ---
ED General - General Chief Complaint: Cough Stated Complaint: COUGH Time Seen by Provider: 08/20/18 20:51 Mode of Arrival: Ambulatory Information source: Patient, Friend, [facility] Records Notes: 37-year-old female with hypertension, hyperlipidemia, type 2 diabetes, migraine headaches, depression presents with complaint of shortness of breath, productive cough. Patient states symptoms started 3 weeks prior to arrival. She describes the cough as persistent, productive and not improved after breathing treatments, Tessalon Perles and prednisone. Patient states that she has had associated fever, chest pain with coughing. She does admit to continuous tobacco use. TRAVEL OUTSIDE OF THE [place] IN LAST 30 DAYS: No - HPI Onset: Other Onset/Duration: Persistent, Worse Quality of pain: Burning Severity: Moderate Associated symptoms: Productive cough, Fever, Shortness of breath Exacerbated by: Denies Relieved by: Denies Similar symptoms previously: Yes Recently seen / treated by doctor: Yes - August 16, 2018 - Related Data Allergies/Adverse Reactions: adhesive tape [Adhesive Tape] Allergy (Severe, Verified 08/16/18 07:35) Generalized Itching haloperidol [From Haldol] Allergy (Severe, Verified 08/16/18 07:35) "Panic attack" prochlorperazine maleate [From Compazine] Allergy (Severe, Verified 08/16/18 07: 35) Shortness of breath latex [Latex] Allergy (Intermediate, Verified 08/16/18 07:35) Hives morphine Adverse Reaction (Severe, Verified 08/16/18 07:35) ? metoclopramide HCl [From Reglan] Adverse Reaction (Intermediate, Verified 07:35) "spazed out" Past Medical History - General Information source: Patient, [facility] Records - [facility] she is in 97 possible TIA - Social History Smoking Status: Current Every Day Smoker Cigarette use (# per day): Yes - Half a pack per day Smoking Education Provided: Yes - Smoking cessation counseling was provided for 4 minutes at the bedside Frequency of alcohol use: None Drug Abuse: None Lives with: Family Family History: None Patient has suicidal ideation: No Patient has homicidal ideation: No - Past Medical History Cardiac Medical History: Reports: Hx Hypercholesterolemia, Hx Hypertension Denies: Hx Coronary Artery Disease, Hx Heart Attack Pulmonary Medical History: Denies: Hx Asthma, Hx Bronchitis, Hx COPD, Hx Pneumonia Neurological Medical History: Reports: Hx Migraine. Denies: Hx Cerebrovascular Accident, Hx Seizures Endocrine Medical History: Reports: Hx Diabetes Mellitus Type 2 Renal/ Medical History: Denies: Hx Peritoneal Dialysis GI Medical History: Musculoskeletal Medical History: Reports Hx Arthritis - B/L WRIST Psychiatric Medical History: Reports: Hx Depression Infectious Medical History: Past Surgical History: Reports: Hx Abdominal Surgery - , Hx Appendectomy, Hx Bowel Surgery, Hx Section, Hx Cholecystectomy, Hx Hysterectomy, Hx Orthopedic Surgery - carpal tunnel surgery, Hx Tonsillectomy, Hx Tubal Ligation. Denies: Hx Pacemaker - Immunizations Hx Diphtheria, Pertussis, Tetanus Vaccination: Yes Review of Systems - Review of Systems Notes: REVIEW OF SYSTEMS: CONSTITUTIONAL : Denies weight loss, recent hospitalizations. EENT: Denies visual changes, eye pain. Denies sore throat, oral lesions, difficulty swallowing. CARDIOVASCULAR: Denies lower extremity edema. RESPIRATORY: Denies history of PE GASTROINTESTINAL: Denies abdominal pain or distention. Denies nausea, vomiting , or diarrhea. Denies blood in vomitus, stools, or per rectum. Denies black, tarry stools. Denies constipation. GENITOURINARY: Denies difficulty urinating, painful urination, frequency, blood in urine, or vaginal discharge. MUSCULOSKELETAL: Denies back or neck pain or stiffness. Denies joint pain or swelling. SKIN: Denies rash, lesions or sores. HEMATOLOGIC : Denies easy bruising or bleeding. LYMPHATIC: Denies swollen glands. NEUROLOGICAL: Denies confusion or altered mental status. Denies loss of consciousness. Denies dizziness or lightheadedness. Denies headache. Denies weakness or paralysis. Denies problems difficulty with ambulation, slurred speech. Denies sensory loss, numbness, or tingling. Denies seizures. PSYCHIATRIC: Denies anxiety or stress. Denies depression, suicidal ideation, or homicidal ideation. Denies visual or auditory hallucinations. Physical Exam - Vital signs Vitals: Resp Pulse Ox 27 H 98 08/20/18 20:11 08/20/18 20:11 Interpretation: Tachycardic, Tachypneic - Notes Notes: PHYSICAL EXAMINATION: GENERAL: Ill-appearing, HEAD: Atraumatic, normocephalic. EYES: Pupils equal round and reactive to light, extraocular movements intact, conjunctiva are normal. ENT: Nares patent, oropharynx clear without exudates. Moist mucous membranes. NECK: Normal range of motion, supple without lymphadenopathy LUNGS: Coarse breath sounds throughout. Tachypneic, accessory muscle use. Harsh persistent cough. HEART: Tachycardic, regular rhythm without murmurs ABDOMEN: Soft, nontender, nondistended abdomen. No guarding, no rebound. No masses appreciated. Female : deferred Musculoskeletal: Normal range of motion, no pitting or edema. No cyanosis. NEUROLOGICAL: Cranial nerves grossly intact. Normal speech, normal gait. Normal sensory, motor exams PSYCH: Normal mood, normal affect. SKIN: Diaphoretic. Course - Re-evaluation Re-evalutation: Laboratory 08/20/18 08/20/18 08/20/18 20:20 20:20 21:30 WBC 10.6 H RBC 5.26 Hgb 15.0 Hct 44.5 MCV 85 MCH 28.6 MCHC 33.8 RDW 13.4 Plt Count 216 Seg Neutrophils % 65.9 Lymphocytes % 26.9 Monocytes % 3.8 Eosinophils % 2.0 Basophils % 1.4 Absolute Neutrophils 7.0 Absolute Lymphocytes 2.9 Absolute Monocytes 0.4 Absolute Eosinophils 0.2 Absolute Basophils 0.1 VBG pH 7.51 H VBG pCO2 25.8 L VBG HCO3 19.9 L VBG Base Excess -1.3 Sodium Cancelled Potassium Cancelled Chloride Cancelled Carbon Dioxide Cancelled Anion Gap Cancelled BUN Cancelled Creatinine Cancelled Est GFR ( Amer) Cancelled Est GFR (Non-Af Amer) Cancelled Glucose Cancelled Calcium Cancelled Total Bilirubin Cancelled Direct Bilirubin Cancelled Neonat Total Bilirubin Cancelled Neonat Direct Bilirubin Cancelled Neonat Indirect Bili Cancelled AST Cancelled ALT Cancelled Alkaline Phosphatase Cancelled Total Protein Cancelled Albumin Cancelled 08/20/18 21:30 WBC RBC Hgb Hct MCV MCH MCHC RDW Plt Count Seg Neutrophils % Lymphocytes % Monocytes % Eosinophils % Basophils % Absolute Neutrophils Absolute Lymphocytes Absolute Monocytes Absolute Eosinophils Absolute Basophils VBG pH VBG pCO2 VBG HCO3 VBG Base Excess Sodium 133.6 L Potassium 4.1 Chloride 99 Carbon Dioxide 20 L Anion Gap 15 BUN 11 Creatinine 0.45 L Est GFR ( Amer) > 60 Est GFR (Non-Af Amer) > 60 Glucose 471 H* Calcium 9.6 Total Bilirubin 0.6 Direct Bilirubin 0.6 H Neonat Total Bilirubin Not Reportable Neonat Direct Bilirubin Not Reportable Neonat Indirect Bili Not Reportable AST 49 H ALT 29 Alkaline Phosphatase 102 Total Protein 7.0 Albumin 4.3 Chest X-Ray 08/20/18 00:00 IMPRESSION: Very low lung volumes. No acute infiltrates. Chest/Abdomen CTA 08/20/18 20:52 IMPRESSION: No acute pulmonary embolism. No evidence for aortic dissection. No acute pathology. 08/20/18 23:53 Patient refusing Accu-Cheks and insulin. 08/22/18 13:05 37-year-old female with hypertension, hyperlipidemia, type 2 diabetes, migraine headaches, depression presents with complaint of shortness of breath, productive cough. Patient states symptoms started 3 weeks prior to arrival. She describes the cough as persistent, productive and not improved after breathing treatments, Tessalon Perles and prednisone. Patient states that she has had associated fever, chest pain with coughing. She does admit to continuous tobacco use. Exam is significant for a persistent, harsh cough that causes patient to vomit. Patient did receive breathing treatments, Solu-Medrol , magnesium, Dilaudid. CBC is without leukocytosis. CMP does show elevated glucose without evidence of DKA. Patient did receive IV fluids and her home dose of Humulin was ordered but patient refuses. She also refuses repeat Accu- Chek after rehydration. Chest x-ray is without acute process. CTA shows no evidence of PE. Cough has improved. Patient will be discharged home with doxycycline, Robitussin AC. She has already completed a course of prednisone. Smoking cessation advised. Patient provided the opportunity to ask questions, and express concerns. Discharge instructions discussed. Patient is agreeable with discharge home. Return indications explained and discussed with the patient who displays understanding. Patient encouraged to return to the emergency department immediately with any concerns. Results were discussed with the patient at this point, after careful consideration I feel that that patient can be discharged from the emergency department, the patient was educated treatments and reasons to return to the emergency department based on their presumed diagnosis as noted above, they were advised to followup with a primary care physician in 2-3 days. Patient was agreeable to plan of care. Dictation on this chart was performed using voice recognition software and may result in unintended grammatical, spelling, syntax or errors. - Vital Signs Vital signs: Temp Pulse Resp BP Pulse Ox 97.6 F 105 H 15 129/69 H 98 08/21/18 00:02 08/21/18 00:02 08/21/18 00:02 08/21/18 00:02 08/21/18 00:02 - Laboratory Result Diagrams: 08/20/18 20:20 08/20/18 21:30 Laboratory results interpreted by me: 08/20/18 08/20/18 08/20/18 20:20 21:30 21:30 WBC 10.6 H VBG pH 7.51 H VBG pCO2 25.8 L VBG HCO3 19.9 L Sodium 133.6 L Carbon Dioxide 20 L Creatinine 0.45 L Glucose 471 H* Direct Bilirubin 0.6 H AST 49 H - Diagnostic Test Radiology reviewed: Image reviewed, Reports reviewed Discharge - Discharge Clinical Impression: Bronchitis, Cough, Hyperglycemia due to type 1 diabetes mellitus, Wheezing Upper respiratory infection Qualifiers: URI type: unspecified URI Qualified Code(s): J06.9 - Acute upper respiratory infection, unspecified Nausea & vomiting Qualifiers: Vomiting type: unspecified Vomiting Intractability: non-intractable Qualified Code(s): R11.2 - Nausea with vomiting, unspecified Condition: Good Disposition: HOME, SELF-CARE Instructions: Bronchitis With Bronchospasm (Wheezing) ([facility]), Diabetes ([facility]), Control of Diabetes During Illness ([facility]), Hyperglycemia ([facility]), Inhaled Bronchodilators ([facility]), Upper Respiratory Illness ([facility]) Additional Instructions: You were seen for symptoms most consistent with bronchitis. This can take up to 12 weeks to fully resolve. This is generally due to a viral infection. Please follow-up with your primary doctor in the next 2-3 days. Return if you develop worsening cough, vomiting, fever >100.4, pass out, begin coughing blood, or have any other symptoms that are concerning to you. Please use the medications prescribed today as directed. Most prescribed medications have multiple side effects. The safest thing to do is when filling your prescription please speak to your pharmacist regarding possible interactions with your normal home medications and over the counter medications such as Ibuprofen, Tylenol, Benadryl.. If you experience any symptoms that cause you discomfort or concern you should discontinue the medication immediately and return to the emergency room or call your primary care physician. Follow up with your physician tomorrow for further care or return to the ED IMMEDIATELY if symptoms worsen or new concerns occur. If you cannot afford to follow up with your primary care physician a list of low cost clinics have been provided at the end of your discharge papers as well. Recommendations: Take medicine as prescribed for nausea and vomiting. Drink small amounts of fluid often, advance diet slowly. Return to the emergency room for worsening vomiting, inability to tolerate fluids, feeling faint, or concerns it or getting worse. Follow-up with your physician within the next two days. If you are unable to get inn to see your physician, return to the ER for evaulation. Prescriptions: Doxycycline Hyclate 100 mg PO BID #14 capsule Guaifenesin/Codeine Phos [Robitussin-AC Syrup 59 ml] 10 ml PO BID #75 ml Forms: Smoking Cessation Education Referrals: EVELYN PAULA MD [Primary Care Provider] - Follow up as needed
[2018-08-20 21:04] LABS: ABSOLUTE BASOPHILS # (AUTO) 0.1 10^3/uL (0.0-0.2); ABSOLUTE EOSINOPHILS # (AUTO) 0.2 10^3/uL (0.0-0.6); ABSOLUTE LYMPHOCYTES (AUTO) 2.9 10^3/uL (0.5-4.7); ABSOLUTE MONOCYTES (AUTO) 0.4 10^3/uL (0.1-1.4); BASOPHILS % (AUTO) 1.4 % (0-2); HEMATOCRIT 44.5 % (36.0-47.0); LYMPHOCYTES % (AUTO) 26.9 % (13-45); MEAN CORPUSCULAR HEMOGLOBIN 28.6 pg (27.0-33.4); MEAN CORPUSCULAR HGB CONC 33.8 g/dL (32.0-36.0); MEAN CORPUSCULAR VOLUME 85 fl (80-97); MONOCYTES % (AUTO) 3.8 % (3-13); PLATELET COUNT 216 10^3/uL (150-450); RED BLOOD COUNT 5.26 10^6/uL (3.72-5.28); RED CELL DISTRIBUTION WIDTH 13.4 % (11.5-14.0); SEGMENTED NEUTROPHILS % (AUTO) 65.9 % (42-78); TOTAL CELLS COUNTED % (AUTO) 100 %; WHITE BLOOD COUNT 10.6 10^3/uL (4.0-10.5)
[2018-08-20] MEDS ORDERED: CEFTRIAXONE 1 GM/D5W RTU 1 GM/50 ML RTUPB IV ONE (21:10)
--- NOTE | 2018-08-20 21:15 | RADIOLOGY REPORT (SQ) ---
EXAM DESCRIPTION: CHEST SINGLE VIEW COMPLETED DATE/TIME: 08/20/2018 8:51 pm REASON FOR STUDY: breathing difficulty COMPARISON: None. EXAM PARAMETERS: NUMBER OF VIEWS: One view. TECHNIQUE: Single frontal radiographic view of the chest acquired. RADIATION DOSE: NA LIMITATIONS: Very low lung volumes FINDINGS: LUNGS AND PLEURA: No opacities, masses or pneumothorax. No pleural effusion. MEDIASTINUM AND HILAR STRUCTURES: No masses. Contour normal. HEART AND VASCULAR STRUCTURES: Heart normal in size. Normal vasculature. BONES: No acute findings. HARDWARE: None in the chest. OTHER: No other significant finding. IMPRESSION: Very low lung volumes. No acute infiltrates. TECHNICAL DOCUMENTATION: JOB ID: [id number] [employer]- All Rights Reserved Reading location - IP/workstation name: [email or web address]
[2018-08-20 21:55] LABS: VENOUS BLOOD BASE EXCESS -1.3 mmol/L; VENOUS BLOOD HCO3 19.9 mmol/L (20-32); VENOUS BLOOD PCO2 25.8 mmHg (35-63); VENOUS BLOOD PH 7.51 (7.30-7.42)
[2018-08-20] MEDS ORDERED: CEFTRIAXONE INJ 1000 MG VIAL ONE (21:57)
[2018-08-20 22:01] LABS: ALANINE AMINOTRANSFERASE 29 U/L (9-52); ALBUMIN 4.3 g/dL (3.5-5.0); ALKALINE PHOSPHATASE 102 U/L (38-126); ANION GAP 15 (5-19); ASPARTATE AMINO TRANSFERASE 49 U/L (14-36); BILIRUBIN,DIRECT 0.6 mg/dL (0.0-0.4); BILIRUBIN,TOTAL 0.6 mg/dL (0.2-1.3); BLOOD UREA NITROGEN 11 mg/dL (7-20); CALCIUM 9.6 mg/dL (8.4-10.2); CARBON DIOXIDE 20 mmol/L (22-30); CHLORIDE 99 mmol/L (98-107); POTASSIUM 4.1 mmol/L (3.6-5.0); SODIUM 133.6 mmol/L (137-145)
[2018-08-20 22:10] LABS: GLUCOSE 471 mg/dL (75-110)
[2018-08-20] MEDS ORDERED: NORMAL SALINE 1000 ML 1,000 ML IV ONE ×2 (22:12→23:14)
[2018-08-20] MEDS ORDERED: ONDANSETRON HCL INJ/PF 4 MG/2 ML SDV ONE (22:27)
--- NOTE | 2018-08-20 23:08 | RADIOLOGY REPORT (SQ) ---
EXAM DESCRIPTION: CT CHEST ANGIOGRAPHY WITHOUT THEN WITH IV CONTRAST COMPLETED DATE/TME: 08/20/2018 20:52 CLINICAL HISTORY: 37 years, Female, sob/tachy COMPARISON: CT angiogram of the chest before and after intravenous contrast with three-dimensional reconstructions on a separate workstation for review All CT scanners at this facility use dose modulation, iterative reconstruction, and/or weight based dosing when appropriate to reduce radiation dose to as low as reasonably achievable (ALARA). [facility]: Dose Right [facility]: CareDose [facility]: Dose Right [facility]: Teradose 4D [facility]: [place] Findings: Pulmonary arteries are well opacified. No significant filling defects in the pulmonary arterial tree to suggest acute pulmonary embolism. Aorta is within normal limits. No significant mediastinal, hilar or axillary lymphadenopathy. No pleural or pericardial effusions. The visualized upper abdominal organs are within normal limits. Evaluation of the lung parenchyma demonstrates trachea and major airways to be patent. No suspicious lung nodules or masses. IMPRESSION: No acute pulmonary embolism. No evidence for aortic dissection. No acute pathology.
[2018-08-20] MEDS ORDERED: INSULIN NPH (ISOPHANE), HUMAN 100 UNIT/ML 3 ML SUBCUT ONE (23:16)
[2018-08-20] MEDS ORDERED: ALBUTEROL SULFATE HFA (90 MCG/PUFF) 8 GM MDI (1 MDI/ER DISP) IH PRN (23:19)
[2018-08-20] MEDS ORDERED: ONDANSETRON ODT 4 MG TAB (6 TAB/ER DISP) PO PRN (23:23)
[2018-08-20] MEDS ORDERED: ONDANSETRON HCL INJ/PF 4 MG/2 ML SDV IV ONE (23:53)
[2018-08-21 00:03] VITALS: BP 129/69
--- NOTE | 2018-08-21 08:46 | EKG REPORT ---
SEVERITY:- OTHERWISE NORMAL ECG - SINUS TACHYCARDIA : Confirmed by: Edmundo Morgan 21-Aug-2018 08:45:36
== END 2018-08-21 00:03 | disposition home or self-care (01) ==
LOC: ER 19:57
DX: J06.9 Acute upper respiratory infection, unspecified (principal); J40 Bronchitis, not specified as acute or chronic; E10.65 Type 1 diabetes mellitus with hyperglycemia; R05 Cough; R11.2 Nausea with vomiting, unspecified; R06.2 Wheezing; R07.89 Other chest pain; R06.02 Shortness of breath; R00.0 Tachycardia, unspecified; R61 Generalized hyperhidrosis; I10 Essential (primary) hypertension; R50.9 Fever, unspecified; F17.210 Nicotine dependence, cigarettes, uncomplicated; Z71.6 Tobacco abuse counseling; Z91.048 Other nonmedicinal substance allergy status; Z88.8 Allergy status to other drugs, medicaments and biological substances; Z91.040 Latex allergy status
CPT/HCPCS: 93005; 99283; 96361; 96375; 96365; 96367; 36415; 85025; 80053; 82803; 71045; 71275; 93010; J2930; J1170; J3475; J0696; J2405; J3490; J7620; J7512

== ENCOUNTER 2018-10-07 13:51 | Emergency (ER) | payer MEDICAID ==
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
[2018-10-07 17:54] VITALS: BP 138/83
== END 2018-10-07 17:52 | disposition home or self-care (01) ==
LOC: ER 13:51
DX: S00.83XA Contusion of other part of head, initial encounter (principal); W20.8XXA Other cause of strike by thrown, projected or falling object, initial encounter; Y92.009 Unspecified place in unspecified non-institutional (private) residence as the place of occurrence of the external cause; E78.00 Pure hypercholesterolemia, unspecified; I10 Essential (primary) hypertension; E11.9 Type 2 diabetes mellitus without complications; Z91.040 Latex allergy status; Z88.6 Allergy status to analgesic agent; Z98.51 Tubal ligation status; Z90.710 Acquired absence of both cervix and uterus; Z90.49 Acquired absence of other specified parts of digestive tract
CPT/HCPCS: 70450; 70486; 99284

== ENCOUNTER → 2019-05-18 | Outpatient (CLI) | payer MEDICAID ==
[2019-05-18 15:38] LABS: HEMATOCRIT 42.3 % (36.0-47.0); HEMOGLOBIN 14.2 g/dL (12.0-15.5); MEAN CORPUSCULAR HEMOGLOBIN 28.6 pg (27.0-33.4); MEAN CORPUSCULAR HGB CONC 33.6 g/dL (32.0-36.0); MEAN CORPUSCULAR VOLUME 85 fl (80-97); PLATELET COUNT 131 10^3/uL (150-450); RED BLOOD COUNT 4.96 10^6/uL (3.72-5.28); RED CELL DISTRIBUTION WIDTH 13.2 % (11.5-14.0); WHITE BLOOD COUNT 9.3 10^3/uL (4.0-10.5)
[2019-05-18 15:50] LABS: APPEARANCE,URINE CLEAR; BILIRUBIN,URINE NEGATIVE (NEGATIVE); COLOR,URINE YELLOW; GLUCOSE, URINE >=500 mg/dL (NEGATIVE); KETONES,URINE NEGATIVE (NEGATIVE); LEUKOCYTE ESTERASE,URINE NEGATIVE (NEGATIVE); NITRITE,URINE NEGATIVE (NEGATIVE); PROTEIN,URINE NEGATIVE (NEGATIVE); UROBILINOGEN,URINE NEGATIVE mg/dL (<2.0)
[2019-05-18 15:55] LABS: ALANINE AMINOTRANSFERASE 42 U/L (9-52); ALBUMIN 4.4 g/dL (3.5-5.0); ALKALINE PHOSPHATASE 98 U/L (38-126); ANION GAP 11 (5-19); ASPARTATE AMINO TRANSFERASE 45 U/L (14-36); BILIRUBIN,DIRECT 0.3 mg/dL (0.0-0.4); BILIRUBIN,TOTAL 0.4 mg/dL (0.2-1.3); BLOOD UREA NITROGEN 8 mg/dL (7-20); CALCIUM 9.7 mg/dL (8.4-10.2); CARBON DIOXIDE 27 mmol/L (22-30); CHLORIDE 99 mmol/L (98-107); GLUCOSE 240 mg/dL (75-110); POTASSIUM 4.5 mmol/L (3.6-5.0); SODIUM 137.4 mmol/L (137-145); TOTAL PROTEIN 7.3 g/dL (6.3-8.2)
[2019-05-18 16:24] LABS: UR PRO/CREAT RATIO RESULT 0.1 mg/mg (0.0-0.2); URINE CREATININE 75.9 mg/dL (16-327); URINE PROTEIN 6.3 mg/dL (<12)
== END ==
LOC: OD 14:51
PROVIDERS: ATTEND Physician Assistant Medical
DX: I12.9 Hypertensive chronic kidney disease with stage 1 through stage 4 chronic kidney disease, or unspecified chronic kidney disease (principal); R60.9 Edema, unspecified; E23.2 Diabetes insipidus
CPT/HCPCS: 36415; 80053; 81001; 82570; 84156; 85027

== ENCOUNTER 2019-08-16 20:48 | Emergency (ER) | payer MEDICAID ==
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
--- NOTE | 2019-08-16 22:46 | RADIOLOGY REPORT (SQ) ---
XR SHOULDER 2 OR MORE VIEWS CLINICAL STATEMENT: left shoulder pain COMPARISON: 04/26/2016. FINDINGS: Bony alignment is anatomic. There is no fracture or dislocation. The soft tissues are unremarkable. The acromioclavicular joint is intact. IMPRESSION: No fracture.
[2019-08-17 00:36] VITALS: BP 136/88
== END 2019-08-17 00:36 | disposition home or self-care (01) ==
LOC: ER 20:48
DX: S61.412A Laceration without foreign body of left hand, initial encounter (principal); M25.512 Pain in left shoulder; Y04.2XXA Assault by strike against or bumped into by another person, initial encounter; Y93.89 Activity, other specified; H53.8 Other visual disturbances; I10 Essential (primary) hypertension; E11.9 Type 2 diabetes mellitus without complications; Z91.048 Other nonmedicinal substance allergy status; Z88.8 Allergy status to other drugs, medicaments and biological substances; Z91.040 Latex allergy status
CPT/HCPCS: 99284

== ENCOUNTER 2019-10-19 14:06 | Emergency (ER) | payer MEDICAID ==
[2019-10-19 14:11] VITALS: BP 141/79
--- NOTE | 2019-10-19 14:30 | ER Document Report ---
HPI - HPI Time Seen by Provider: 10/19/19 14:21 Notes: Patient is a 39-year-old female with a history of diabetes who presents complaining of a red scabbed area to her abdomen that is been present for the past 1 to 2 days. Patient states that she does have some soreness to it, but has not noticed any red streaks or purulent discharge. No history of MRSA. Patient states that she does inject insulin to her abdomen, but not in this area. She is otherwise eating and drinking without difficulty. She is urinating normally and having normal bowel movements. No other concerns or complaints. Denies any headache, fever, URI, sore throat, chest pain, palpitations, syncope, cough, shortness of breath, wheeze, dyspnea, aside from skin no abdominal pain, nausea/vomiting/diarrhea, urinary retention, dysuria, hematuria. - ROS Systems Reviewed and Negative: Yes All other systems reviewed and negative - REPRODUCTIVE Reproductive: DENIES: : Past Medical History - Social History Smoking Status: Unknown if Ever Smoked Family History: None, Reviewed & Not Pertinent - Past Medical History Cardiac Medical History: Reports: Hx Hypercholesterolemia, Hx Hypertension Denies: Hx Coronary Artery Disease, Hx Heart Attack Pulmonary Medical History: Denies: Hx Asthma, Hx Bronchitis, Hx COPD, Hx Pneumonia Neurological Medical History: Reports: Hx Migraine. Denies: Hx Cerebrovascular Accident, Hx Seizures Endocrine Medical History: Reports: Hx Diabetes Mellitus Type 2 Renal/ Medical History: Denies: Hx Peritoneal Dialysis GI Medical History: Musculoskeletal Medical History: Reports Hx Arthritis - B/L WRIST Psychiatric Medical History: Reports: Hx Depression Infectious Medical History: Past Surgical History: Reports: Hx Abdominal Surgery - , Hx Appendectomy, Hx Bowel Surgery, Hx Section, Hx Cholecystectomy, Hx Hysterectomy, Hx Orthopedic Surgery - carpal tunnel surgery, Hx Tonsillectomy, Hx Tubal Ligation. Denies: Hx Pacemaker - Immunizations Hx Diphtheria, Pertussis, Tetanus Vaccination: Yes Vertical Provider Document - CONSTITUTIONAL Agree With Documented VS: Yes Notes: PHYSICAL EXAMINATION: GENERAL: Well-appearing, well-nourished and in no acute distress. LUNGS: Breath sounds clear to auscultation bilaterally and equal. No wheezes rales or rhonchi. HEART: Regular rate and rhythm without murmurs, rubs, gallops. ABDOMEN: Soft, nontender (aside from scabbed area as noted in 'skin'), nondistended abdomen. No guarding, no rebound. Normal bowel sounds present. No CVA tenderness bilaterally. Musculoskeletal: FROM to passive/active. Strength 5+/5. Extremities: No cyanosis, clubbing, or edema b/l. Peripheral pulses 2+. Capillary refill less than 3 seconds. NEUROLOGICAL: Cranial nerves grossly intact. Normal speech, normal gait. Normal sensory, motor exams PSYCH: Normal mood, normal affect. SKIN: There is a 1cm scabbed mildly erythemic area that is tender to palp w/o fluctuance, streaks, or purulence. No induration. Needle I&D performed to further assess for any pocket of fluid which was unremarkable. - INFECTION CONTROL TRAVEL OUTSIDE OF THE [place] IN LAST 30 DAYS: No Course - Re-evaluation Re-evalutation: 10/19/19 14:32 Patient is an afebrile, well-hydrated, 39-year-old female who presents to the emergency department with an area of very mild cellulitis to her abdomen. Vitals are acceptable without significant tachycardia, tachypnea, or hypoxia. PE is otherwise unremarkable. Patient is nontoxic-appearing and is tolerating p.o. without difficulty. Incision and drainage was performed with needle without any complications and no purulence was obtained. Wound dressing was placed and wound instructions reviewed. Patient is aware that her symptoms can worsen and develop into more of an abscess warranting complete incision and drainage. Strict return precautions. Low suspicion for any sepsis, meningitis, SJS, or other systemic emergent condition at this time. Patient to monitor symptoms for any acute changes and seek medical attention if so. I will send her home with antibiotics. Recheck with your PCM in 2-3 days. Consider consult with the general surgeon. Return to the ED with any worsening/concerning symptoms as reviewed. Patient is in agreement. - Vital Signs Vital signs: Temp Pulse Resp BP Pulse Ox 97.8 F 101 H 18 141/79 H 98 10/19/19 14:10 10/19/19 14:10 10/19/19 14:10 10/19/19 14:10 10/19/19 14:10 Discharge - Discharge Clinical Impression: Cellulitis of skin Condition: Stable Disposition: HOME, SELF-CARE Additional Instructions: Keep the skin clean Wash with soap and water Tylenol/ibuprofen if needed Epsom salt soaks Triple antibiotic ointment daily Take medication as directed Monitor for any worsening symptoms Recheck with your PCM in 2-3 days Return to the ED with any worsening symptoms and/or development of fever, headache, chest pain, palpitations, syncope, shortness of breath, trouble breathing, abdominal pain, n/v/d, abscess, purulent discharge, red streaks, worsening swelling, or other worsening symptoms that are concerning to you. Prescriptions: Sulfamethoxazole/Trimethoprim [Bactrim Ds Tablet] 1 each PO BID #20 tablet Cephalexin Monohydrate [Keflex 500 mg Capsule] 500 mg PO TID #30 capsule Forms: Elevated Blood Pressure Referrals: EVELYN PAULA MD [Primary Care Provider] - Follow up as needed
== END 2019-10-19 14:37 | disposition home or self-care (01) ==
LOC: ER 14:06
DX: L03.311 Cellulitis of abdominal wall (principal); E11.9 Type 2 diabetes mellitus without complications; Z79.4 Long term (current) use of insulin; I10 Essential (primary) hypertension
CPT/HCPCS: 99283

== ENCOUNTER 2019-12-12 15:51 | Emergency (ER) | payer MEDICAID ==
[2019-12-12] MEDS ORDERED: NORMAL SALINE 1000 ML 1,000 ML IV ONE (16:22)
--- NOTE | 2019-12-12 16:24 | ER Document Report ---
ED Medical Screen (RME) - General Chief Complaint: Flank Pain Stated Complaint: FLANK PAIN Time Seen by Provider: 12/12/19 16:19 Primary Care Provider: EVELYN PAULA MD [Primary Care Provider] - Follow up as needed Information source: Patient Notes: Patient presents complaining of right flank pain for the past 3 weeks with hematuria. Patient finished a prescription for Cipro to treat possible infection. Patient has had blood sugars over 500 and reports low-grade fever off and on. Patient reports nausea and vomiting. 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 I have greeted and performed a rapid initial assessment of this patient. A comprehensive ED assessment and evaluation of the patient, analysis of test results and completion of the medical decision making process will be conducted by additional ED providers. TRAVEL OUTSIDE OF THE [place] IN LAST 30 DAYS: No - Related Data Allergies/Adverse Reactions: adhesive tape [Adhesive Tape] Allergy (Severe, Verified 10/19/19 14:21) Generalized Itching haloperidol [From Haldol] Allergy (Severe, Verified 10/19/19 14:21) "Panic attack" prochlorperazine maleate [From Compazine] Allergy (Severe, Verified 10/19/19 14:21) Shortness of breath latex [Latex] Allergy (Intermediate, Verified 10/19/19 14:21) Hives morphine Adverse Reaction (Severe, Verified 10/19/19 14:21) ? metoclopramide HCl [From Reglan] Adverse Reaction (Intermediate, Verified 10/19/19 14:21) "spazed out" Past Medical History - Past Medical History Cardiac Medical History: Reports: Hx Hypercholesterolemia, Hx Hypertension Denies: Hx Coronary Artery Disease, Hx Heart Attack Pulmonary Medical History: Denies: Hx Asthma, Hx Bronchitis, Hx COPD, Hx Pneumonia Neurological Medical History: Reports: Hx Migraine. Denies: Hx Cerebrovascular Accident, Hx Seizures Endocrine Medical History: Reports: Hx Diabetes Mellitus Type 2 Renal/ Medical History: Denies: Hx Peritoneal Dialysis GI Medical History: Musculoskeltal Medical History: Reports Hx Arthritis - B/L WRIST Psychiatric Medical History: Reports: Hx Depression Infectious Medical History: Past Surgical History: Reports: Hx Abdominal Surgery - , Hx Appendectomy, Hx Bowel Surgery, Hx Section, Hx Cholecystectomy, Hx Hysterectomy, Hx Orthopedic Surgery - carpal tunnel surgery, Hx Tonsillectomy, Hx Tubal Ligation. Denies: Hx Pacemaker - Immunizations Hx Diphtheria, Pertussis, Tetanus Vaccination: Yes Physical Exam - Vital signs Vitals: Temp Pulse Resp BP Pulse Ox 99.1 F 102 H 16 148/83 H 96 12/12/19 16:06 12/12/19 16:06 12/12/19 16:06 12/12/19 16:06 12/12/19 16:06 - Back Back: CVA tenderness - Right flank pain Course - Vital Signs Vital signs: Temp Pulse Resp BP Pulse Ox 99.1 F 102 H 16 148/83 H 96 12/12/19 16:06 12/12/19 16:06 12/12/19 16:06 12/12/19 16:06 12/12/19 16:06 Doctor's Discharge - Discharge Referrals: EVELYN PAULA MD [Primary Care Provider] - Follow up as needed
[2019-12-12 18:59] LABS: ABSOLUTE BASOPHILS # (AUTO) 0.1 10^3/uL (0.0-0.2); ABSOLUTE EOSINOPHILS # (AUTO) 0.2 10^3/uL (0.0-0.6); ABSOLUTE LYMPHOCYTES (AUTO) 1.8 10^3/uL (0.5-4.7); ABSOLUTE MONOCYTES (AUTO) 0.3 10^3/uL (0.1-1.4); ABSOLUTE NEUT (AUTO) 5.8 10^3/uL (1.7-8.2); BASOPHILS % (AUTO) 1.2 % (0-2); EOSINOPHILS % (AUTO) 2.1 % (0-6); HEMATOCRIT 40.2 % (36.0-47.0); HEMOGLOBIN 13.4 g/dL (12.0-15.5); LYMPHOCYTES % (AUTO) 21.8 % (13-45); MEAN CORPUSCULAR HEMOGLOBIN 28.8 pg (27.0-33.4); MEAN CORPUSCULAR HGB CONC 33.4 g/dL (32.0-36.0); MEAN CORPUSCULAR VOLUME 86 fl (80-97); MONOCYTES % (AUTO) 3.8 % (3-13); PLATELET COUNT 125 10^3/uL (150-450); RED BLOOD COUNT 4.66 10^6/uL (3.72-5.28); RED CELL DISTRIBUTION WIDTH 14.3 % (11.5-14.0); SEGMENTED NEUTROPHILS % (AUTO) 71.1 % (42-78); TOTAL CELLS COUNTED % (AUTO) 100 %; WHITE BLOOD COUNT 8.1 10^3/uL (4.0-10.5)
[2019-12-12 19:01] LABS: VENOUS BLOOD BASE EXCESS 0.4 mmol/L; VENOUS BLOOD HCO3 25.6 mmol/L (20-32); VENOUS BLOOD PCO2 43.5 mmHg (35-63); VENOUS BLOOD PH 7.39 (7.30-7.42)
[2019-12-12 19:04] LABS: APPEARANCE,URINE CLEAR; BILIRUBIN,URINE NEGATIVE (NEGATIVE); COLOR,URINE YELLOW; GLUCOSE, URINE >=500 mg/dL (NEGATIVE); KETONES,URINE NEGATIVE (NEGATIVE); LEUKOCYTE ESTERASE,URINE NEGATIVE (NEGATIVE); NITRITE,URINE NEGATIVE (NEGATIVE); PROTEIN,URINE NEGATIVE (NEGATIVE); URINE SPECIFIC GRAVITY 1.024; UROBILINOGEN,URINE NEGATIVE mg/dL (<2.0)
[2019-12-12 19:18] LABS: ALBUMIN 4.3 g/dL (3.5-5.0); ALKALINE PHOSPHATASE 121 U/L (38-126); ANION GAP 14 (5-19); ASPARTATE AMINO TRANSFERASE 69 U/L (14-36); BILIRUBIN,DIRECT 0.3 mg/dL (0.0-0.4); BILIRUBIN,TOTAL 0.5 mg/dL (0.2-1.3); BLOOD UREA NITROGEN 10 mg/dL (7-20); CALCIUM 10.1 mg/dL (8.4-10.2); CARBON DIOXIDE 25 mmol/L (22-30); CHLORIDE 96 mmol/L (98-107); GLUCOSE 289 mg/dL (75-110); POTASSIUM 4.3 mmol/L (3.6-5.0); TOTAL PROTEIN 7.3 g/dL (6.3-8.2)
[2019-12-12] MEDS ORDERED: PROMETHAZINE HCL 25 MG TABLET PO ONE (19:47)
[2019-12-12] MEDS ORDERED: OXYCODONE-ACETAMINOPHEN 5-325 MG TABLET PO ONE (19:51)
--- NOTE | 2019-12-12 19:56 | ER Document Report ---
ED GI/ - General Chief Complaint: Flank Pain Stated Complaint: FLANK PAIN Time Seen by Provider: 12/12/19 16:19 Primary Care Provider: EVELYN PAULA MD [NO LOCAL MD] - Follow up as needed Notes: Patient is a 39-year-old female with a history of type 2 diabetes who presents to the emergency department with a chief complaint of right flank pain. Patient reports that she has had right flank pain and blood in the urine for the past 3 weeks. Patient reports she has seen her primary care physician as well as her senior ssis developer who actually sent her over here to the emergency department today. Patient reports that they gave her 2 types of medication 1 included a steroid Dosepak for a possible kidney stone. Patient reports that she also finished ciprofloxacin for a possible infection. Patient reports the blood in the urine was never obvious but that the doctor told her there was blood in the urine under the microscope. Patient reports her sugars at home have been running greater than 500. Patient reports low-grade fever. Patient reports she has not actually taken her temperature but has had chills and sweats. Patient reports nausea and multiple episodes of vomiting. Patient concern for possible diabetic ketoacidosis. TRAVEL OUTSIDE OF THE [place] IN LAST 30 DAYS: No - Related Data Allergies/Adverse Reactions: adhesive tape [Adhesive Tape] Allergy (Severe, Verified 10/19/19 14:21) Generalized Itching haloperidol [From Haldol] Allergy (Severe, Verified 10/19/19 14:21) "Panic attack" prochlorperazine maleate [From Compazine] Allergy (Severe, Verified 10/19/19 14:21) Shortness of breath latex [Latex] Allergy (Intermediate, Verified 10/19/19 14:21) Hives morphine Adverse Reaction (Severe, Verified 10/19/19 14:21) ? metoclopramide HCl [From Reglan] Adverse Reaction (Intermediate, Verified 10/19/19 14:21) "spazed out" Home Medications: DIABETIC, HTN, AND MORE. Past Medical History - General Information source: Patient - Social History Smoking Status: Former Smoker Chew tobacco use (# tins/day): No Frequency of alcohol use: None Drug Abuse: None Lives with: Family Family History: None, Reviewed & Not Pertinent Patient has suicidal ideation: No Patient has homicidal ideation: No - Past Medical History Cardiac Medical History: Reports: Hx Hypercholesterolemia, Hx Hypertension Denies: Hx Coronary Artery Disease, Hx Heart Attack Pulmonary Medical History: Reports: None Denies: Hx Asthma, Hx Bronchitis, Hx COPD, Hx Pneumonia EENT Medical History: Reports: None Neurological Medical History: Reports: Hx Migraine. Denies: Hx Cerebrovascular Accident, Hx Seizures Endocrine Medical History: Reports: Hx Diabetes Mellitus Type 2 Renal/ Medical History: Reports: None. Denies: Hx Peritoneal Dialysis Malignancy Medical History: Reports: None GI Medical History: Reports: None Musculoskeletal Medical History: Reports Hx Arthritis - B/L WRIST Skin Medical History: Reports None Psychiatric Medical History: Reports: Hx Depression Traumatic Medical History: Reports: None Infectious Medical History: Reports: None Past Surgical History: Reports: Hx Abdominal Surgery - , Hx Appendectomy, Hx Bowel Surgery, Hx Section, Hx Cholecystectomy, Hx Hysterectomy, Hx Orthopedic Surgery - carpal tunnel surgery, Hx Tonsillectomy, H x Tubal Ligation. Denies: Hx Pacemaker - Immunizations Hx Diphtheria, Pertussis, Tetanus Vaccination: Yes Review of Systems - Review of Systems Constitutional: See HPI EENT: No symptoms reported Cardiovascular: No symptoms reported Respiratory: No symptoms reported Gastrointestinal: See HPI Genitourinary: See HPI Female Genitourinary: No symptoms reported Musculoskeletal: No symptoms reported Skin: No symptoms reported Hematologic/Lymphatic: No symptoms reported Neurological/Psychological: No symptoms reported Physical Exam - Vital signs Vitals: Temp Pulse Resp BP Pulse Ox 99.1 F 102 H 16 148/83 H 96 12/12/19 16:06 12/12/19 16:06 12/12/19 16:06 12/12/19 16:06 12/12/19 16:06 - Notes Notes: GENERAL: Well-appearing, well-nourished and in no acute distress. HEAD: Atraumatic, normocephalic. EYES: Pupils equal round and reactive to light, extraocular movements intact, sclera anicteric, conjunctiva are normal. ENT: Nares patent, oropharynx clear without exudates. Moist mucous membranes. NECK: Normal range of motion, supple without lymphadenopathy or JVD. LUNGS: Breath sounds clear to auscultation bilaterally and equal. No wheezes rales or rhonchi. HEART: Regular rate and rhythm without murmurs, rubs or gallops. ABDOMEN: Soft, obese, nontender, normoactive bowel sounds. No guarding, no rebound. No masses appreciated. BACK: No cervical, thoracic, lumbar midline tenderness. No saddle anesthesia, normal distal neurovascular exam. Mild right CVA tenderness with palpation. GENITOURINARY: Deferred. EXTREMITIES: Normal range of motion, no pitting or edema. No clubbing or cyanosis. NEUROLOGICAL: Cranial nerves II through XII grossly intact. Normal speech, normal gait. PSYCH: Normal mood, normal affect. SKIN: Warm, Dry, normal turgor, no rashes or lesions noted. Course - Re-evaluation Re-evalutation: 12/12/19 19:55 Upon initial assessment patient standing upright beside stretcher. Patient reports having right flank pain that has been consistent for about 3 weeks. Patient reports that her primary care physician was treating her for a possible stone and was placed on oral steroids, ciprofloxacin and another type of medication. Patient states she has been given multiple doses of Toradol and Phenergan over the past few weeks. Patient reports the pain is never gone away. Patient denies abdominal pain. Patient denies urinary symptoms. Patient reports the pain does not radiate and stays in the right flank area. Patient was sent here by Cornell Rainey from her nephrology office for further evaluation. Patient reports her blood sugars at home have been running extremely elevated and above 500. I did inform the patient this could have been due to the prednisone. Patient is on metformin as well as Humulin on a sliding scale and when she does take multiple times per day. Patient's primary care physician is [facility]. We will obtain a CT of the abdomen and pelvis without oral or IV contrast to rule out stone. Patient's lab work does not show any significant signs of infection, diabetic ketoacidosis, or alteration of electrolytes. 12/12/19 21:14 Patient is resting comfortably on stretcher. Patient CT of the abdomen without oral or IV contrast did not show any hydronephrosis or issue with a kidney. There is no evidence as to why she is having the right flank pain. Patient was noted to have an enlarged liver and spleen. Patient reports she has known about the enlarged liver for a while as this is been present since the age of 11. I did inform her that a significantly enlarged liver can lead to enlarged spleen and that she does need to follow-up with her primary care physician. Patient given strict return precautions. Patient to closely monitor her blood sugar at home. Patient verbalized understanding nontoxic-appearing. - Vital Signs Vital signs: Temp Pulse Resp BP Pulse Ox 99.1 F 102 H 16 148/83 H 96 12/12/19 16:06 12/12/19 16:06 12/12/19 16:06 12/12/19 16:06 12/12/19 16:06 - Laboratory Result Diagrams: 12/12/19 18:20 12/12/19 18:20 Laboratory results interpreted by me: 12/12/19 12/12/19 12/12/19 17:32 17:57 18:20 RDW 14.3 H Plt Count 125 L Sodium Chloride Creatinine Glucose POC Glucose 307 H AST Urine Glucose (UA) >=500 H 12/12/19 18:20 RDW Plt Count Sodium 134.9 L Chloride 96 L Creatinine 0.39 L Glucose 289 H POC Glucose AST 69 H Urine Glucose (UA) 12/12/19 19:54 Patient's blood work does not show a significant leukocytosis, anemia, alteration in electrolytes. Patient's creatinine is 0.39 which is consistent with previous results. Patient's urinalysis does not show sign of infection or bacteria, or blood. Patient's blood gas is within normal limits without signs of acidosis. Laboratory 12/12/19 12/12/19 12/12/19 17:32 17:57 18:20 WBC 8.1 RBC 4.66 Hgb 13.4 Hct 40.2 MCV 86 MCH 28.8 MCHC 33.4 RDW 14.3 H Plt Count 125 L Lymph % (Auto) 21.8 [place] % (Auto) 3.8 Eos % (Auto) 2.1 Baso % (Auto) 1.2 Absolute Neuts (auto) 5.8 Absolute Lymphs (auto) 1.8 Absolute Monos (auto) 0.3 Absolute Eos (auto) 0.2 Absolute Basos (auto) 0.1 Seg Neutrophils % 71.1 VBG pH VBG pCO2 VBG HCO3 VBG Base Excess Sodium Potassium Chloride Carbon Dioxide Anion Gap BUN Creatinine Est GFR ( Amer) Est GFR (MDRD) Non-Af Glucose POC Glucose 307 H Calcium Total Bilirubin Direct Bilirubin Neonat Total Bilirubin Neonat Direct Bilirubin Neonat Indirect Bili AST ALT Alkaline Phosphatase Total Protein Albumin Serum HCG, Qual Urine Color YELLOW Urine Appearance CLEAR Urine pH 6.0 Ur Specific Stra[place]hn 1.024 Urine Protein NEGATIVE Urine Glucose (UA) >=500 H Urine Ketones NEGATIVE Urine Blood NEGATIVE Urine Nitrite NEGATIVE Urine Bilirubin NEGATIVE Urine Urobilinogen NEGATIVE Ur Leukocyte Esterase NEGATIVE Urine WBC (Auto) 0 Urine RBC (Auto) 1 Urine Bacteria (Auto) TRACE Squamous Epi Cells Auto 3 Urine Mucus (Auto) RARE Urine Ascorbic Acid NEGATIVE 12/12/19 12/12/19 12/12/19 18:20 18:20 18:20 WBC RBC Hgb Hct MCV MCH MCHC RDW Plt Count Lymph % (Auto) [place] % (Auto) Eos % (Auto) Baso % (Auto) Absolute Neuts (auto) Absolute Lymphs (auto) Absolute Monos (auto) Absolute Eos (auto) Absolute Basos (auto) Seg Neutrophils % VBG pH 7.39 VBG pCO2 43.5 VBG HCO3 25.6 VBG Base Excess 0.4 Sodium 134.9 L Potassium 4.3 Chloride 96 L Carbon Dioxide 25 Anion Gap 14 BUN 10 Creatinine 0.39 L Est GFR ( Amer) > 60 Est GFR (MDRD) Non-Af > 60 Glucose 289 H POC Glucose Calcium 10.1 Total Bilirubin 0.5 Direct Bilirubin 0.3 Neonat Total Bilirubin Not Reportable Neonat Direct Bilirubin Not Reportable Neonat Indirect Bili Not Reportable AST 69 H ALT 51 Alkaline Phosphatase 121 Total Protein 7.3 Albumin 4.3 Serum HCG, Qual NEGATIVE Urine Color Urine Appearance Urine pH Ur Specific [place] Urine Protein Urine Glucose (UA) Urine Ketones Urine Blood Urine Nitrite Urine Bilirubin Urine Urobilinogen Ur Leukocyte Esterase Urine WBC (Auto) Urine RBC (Auto) Urine Bacteria (Auto) Squamous Epi Cells Auto Urine Mucus (Auto) Urine Ascorbic Acid - Diagnostic Test Radiology results interpreted by me: 12/12/19 21:14 Abdomen/Pelvis CT 12/12/19 19:47 IMPRESSION: 1. No discrete CT findings to explain right flank pain. 2. Hepatosplenomegaly with suggestion of underlying hepatic steatosis. Correlate with liver function tests. Discharge - Discharge Clinical Impression: Right flank pain Condition: Stable Disposition: HOME, SELF-CARE Additional Instructions: Today was seen in the emergency department for right flank pain. Did we did obtain a CT of the abdomen and pelvis which did not show any acute abnormality with the kidneys. Unfortunately we cannot find an answer for your right flank pain. Your urine did not show any signs of infection or blood. We did adequately hydrate you with IV fluids. Is unsure what is been causing the elevation in your blood sugars. This could be due to your recent prescription and dose of steroids as this can significantly increase your blood sugar. Please follow-up with your senior ssis developer as well as your primary care physician. It was noted that you had an enlarged liver on your CT as well as a slightly enlarged spleen. Liver Function Abnormality Your evaluation has shown an abnormality of your liver function. This may not be serious, but you need further testing. Abnormal liver function can be caused by alcohol, medicines, virus infections, heart failure, tumors, gallbladder problems, and many other diseases. But sometimes "abnormal" liver enzymes are "normal" -- it's just the way your liver works and there's nothing wrong. We need to be sure. If your doctor thinks the abnormal test was caused by alcohol, medicine, or a recent virus, we may just repeat the liver enzyme test later. Often, the test shows that the elevated enzymes are back to normal. Usually no treatment is necessary, except for avoiding the cause of the liver dysfunction (such as alcohol or a specific medicine). Further testing could include an ultrasound of the liver, liver scan, or perhaps a liver biopsy in difficult cases. Call the doctor if you become increasingly yellow, vomit repeatedly, begin to bruise or bleed easily, or have worsening abdominal pain. Diabetes You have an abnormally high blood sugar, suspicious for diabetes. Not all high blood sugar requires long-term treatment. High blood sugar can be due to medications, , or the stress of illness. (These cases are "borderline diabetes.") If the doctor feels your high blood sugar might get better with time, you may not require treatment now. You will be scheduled for further evaluation. It's very important that you follow through. Uncontrolled high blood sugar leads to early heart disease, strokes, nerve damage, eye damage, and kidney damage. All diabetics should follow a diet designed to control the blood sugar. Overweight diabetics should exercise regularly and lose weight. If this is not sufficient to control the blood sugar, pills or insulin shots are necessary. Younger people who develop diabetes almost always require insulin daily. Home testing of blood sugars or urine sugar is required. Diabetic teaching is available to help you figure insulin doses and monitor the blood sugar. Call the physician if there is faintness, excess sleepiness, or very rapid breathing. If hypoglycemia (LOW blood sugar) develops, symptoms are shakiness, weakness, sweating, and confusion. In this case, you should eat or drink something with sugar at once. Flank Pain We weren't able to prove an exact cause for your flank pain. Pain in the flank can be caused by a muscle strain or spasm. Sometimes a kidney stone causes pain, but can't be found on our tests. Infection in the kidney should be evident on a urine test. Early shingles can occasionally cause flank pain, without the rash that proves the diagnosis. On rare occasions, disease of the pancreas, aorta, spleen, or colon can create pain in the flank. At this time, there's no evidence of a dangerous condition, and it seems safe for you to be at home. If the pain goes away and does not come back, no further testing will be needed. If pain persists, or becomes more severe, we may need to repeat some tests or order additional new testing. Blood in the urine, urgency to urinate frequently, and pain that radiates to the groin can indicate a kidney stone. Fever may mean that the pain is due to infection, either of the kidney or the colon (diverticulitis). If your pain is early shingles, you should develop an eruption of blisters in the painful area within a few days. Call the doctor or return if you have pain that is spreading or becoming more severe, pain that does not resolve with time, fever, or any other new symptoms. Referrals: EVELYN PAULA MD [NO LOCAL MD] - Follow up as needed
--- NOTE | 2019-12-12 20:47 | RADIOLOGY REPORT (SQ) ---
EXAM DESCRIPTION: CT abdomen and pelvis without IV contrast CLINICAL HISTORY: 39 years Female right flank pain COMPARISON: None. TECHNIQUE: Contiguous axial images obtained through the abdomen and pelvis without the use of IV contrast. Reformatted images obtained. This exam was performed according to our department optimization program which includes automated exposure control, adjustment of the mA and/or kv according to patient size and/or use of iterative reconstruction technique. FINDINGS: Examination is technically limited by patient body habitus. The visualized lung bases are clear. The liver is enlarged measuring up to 25.6 cm, with suggestion of underlying hepatic steatosis. Status post cholecystectomy. The spleen is prominent in size measuring up to 18.8 cm. The pancreas appears unremarkable. No adrenal masses. The kidneys appear unremarkable. No hydronephrosis. No aneurysmal dilatation of the aorta. No bowel obstruction. The appendix appears to be surgically absent. No significant free fluid noted. A small fat-containing ventral hernia involving the lower anterior abdominal wall. Note that the bilateral flanks are partially collimated from view due to patient body habitus. IMPRESSION: 1. No discrete CT findings to explain right flank pain. 2. Hepatosplenomegaly with suggestion of underlying hepatic steatosis. Correlate with liver function tests.
[2019-12-12 21:42] VITALS: BP 128/70
== END 2019-12-12 21:40 | disposition home or self-care (01) ==
LOC: ER 15:51
DX: R10.9 Unspecified abdominal pain (principal); E11.9 Type 2 diabetes mellitus without complications; E78.00 Pure hypercholesterolemia, unspecified; I10 Essential (primary) hypertension; Z88.6 Allergy status to analgesic agent; Z91.040 Latex allergy status
CPT/HCPCS: 99284; 96360; 96361; 36415; 87086; 82962; 84703; 85025; 80053; 81001; 82803; 74176; J3490; J7030

== ENCOUNTER 2020-01-24 15:55 | Emergency (ER) | payer MEDICAID ==
[2020-01-24 16:14] VITALS: BP 141/91
--- NOTE | 2020-01-24 19:19 | ER Document Report ---
HPI - HPI Patient complains to provider of: Possible abscess Time Seen by Provider: 01/24/20 16:32 Onset: Last week Onset/Duration: Sudden, Persistent Quality of pain: Achy Severity: Moderate Pain Level: 3 Context: This 39-year-old female with history of diabetes stroke and TIA presents to the emergency department with reports she has an abscess to her back. She reports it has been there for approximately a week and a half. She reports her niece attempted to pop it today and only had a return of some bloody discharge. Patient reports the area is extremely tender to touch. She reports she has had abscesses in the past. Denies fever vomiting reports some nausea. denies history of MRSA Associated Symptoms: Nausea Exacerbated by: Denies Relieved by: Denies Similar symptoms previously: Yes Recently seen / treated by doctor: No - REPRODUCTIVE Reproductive: DENIES: : Past Medical History - General Information source: Patient Last Menstrual Period: NovaSure 10 years ago - Social History Smoking Status: Former Smoker Cigarette use (# per day): No Frequency of alcohol use: None Drug Abuse: None Lives with: Family Family History: None, Reviewed & Not Pertinent Patient has suicidal ideation: No Patient has homicidal ideation: No - Past Medical History Cardiac Medical History: Reports: Hx Hypercholesterolemia, Hx Hypertension Denies: Hx Coronary Artery Disease, Hx Heart Attack Pulmonary Medical History: Denies: Hx Asthma, Hx Bronchitis, Hx COPD, Hx Pneumonia Neurological Medical History: Reports: Hx Cerebrovascular Accident, Hx Migraine. Denies: Hx Seizures Endocrine Medical History: Reports: Hx Diabetes Mellitus Type 2 Renal/ Medical History: Denies: Hx Peritoneal Dialysis GI Medical History: Musculoskeletal Medical History: Reports Hx Arthritis - B/L WRIST Psychiatric Medical History: Reports: Hx Depression Infectious Medical History: Past Surgical History: Reports: Hx Abdominal Surgery - , Hx Appendectomy, Hx Bowel Surgery, Hx Section, Hx Cholecystectomy, Hx Hysterectomy, Hx Orthopedic Surgery - carpal tunnel surgery, Hx Tonsillectomy, Hx Tubal Ligation. Denies: Hx Pacemaker - Immunizations Hx Diphtheria, Pertussis, Tetanus Vaccination: Yes Vertical Provider Document - CONSTITUTIONAL Agree With Documented VS: Yes Exam Limitations: No Limitations General Appearance: WD/WN, No Apparent Distress - INFECTION CONTROL TRAVEL OUTSIDE OF THE [place] IN LAST 30 DAYS: No - HEENT HEENT: Atraumatic, Normocephalic - NECK Neck: Supple - RESPIRATORY Respiratory: No Respiratory Distress - CARDIOVASCULAR Cardiovascular: Regular Rate - BACK Back: Normal Inspection - Patient complains of tenderness right side paraspinal upper back. No erythema no warmth no swelling good distal movement and sensation - MUSCULOSKELETAL/EXTREMETIES Musculoskeletal/Extremeties: JARRED MANLEY - NEURO Level of Consciousness: Awake, Alert, Appropriate Motor/Sensory: No Motor Deficit - DERM Integumentary: Warm, Dry. negative: Abscess Adult Front & Back Diagram: 1 - Patient reports area very tender to touch. No erythema no swelling no induration no warmth no obvious signs of abscess. Course - Re-evaluation Re-evalutation: 01/24/20 19:45 Extremity Ultrasound 01/24/20 18:43 IMPRESSION: NO SOFT TISSUE MASS, FLUID COLLECTION, OR FOREIGN BODY. Patient presents with complaints of abscess to her back. She reports it must be very deep because it hurts her. No obvious abscess noted. Patient was sent to ultrasound. I contacted the [employer] who says she even used 2 different cameras on the patient. Ultrasound report is negative for abscess. Patient was instructed on this. Instructed to monitor the site follow-up with her primary care provider keep the area clean. She verbalized understanding to all instructions. - Vital Signs Vital signs: Temp Pulse Resp BP Pulse Ox 98.0 F 94 16 141/91 H 97 01/24/20 16:07 01/24/20 16:07 01/24/20 16:07 01/24/20 16:07 01/24/20 16:07 - Diagnostic Test Radiology reviewed: Image reviewed, Reports reviewed Discharge - Discharge Clinical Impression: Back skin irritation Condition: Stable Disposition: HOME, SELF-CARE Instructions: Acetaminophen Additional Instructions: *You have been evaluated for possible abscess to your back *The ultrasound did not show an abscess *Monitor the site for signs of infection such as increasing pain, redness, swelling, warmth *Keep the area clean, monitor the site, take Tylenol as indicated for pain *Follow up with a primary care provider within one week for recheck *Return to ED for signs of infection, worsening condition, changes, needs Monitor your blood pressure. Your blood pressure was elevated today. This may be because you were anxious, in pain or because you need medication. It is important to follow up with your primary care provider for full evaluation. Forms: Elevated Blood Pressure Referrals: EVELYN PAULA MD [Primary Care Provider] - Follow up in 1 week
--- NOTE | 2020-01-24 19:25 | RADIOLOGY REPORT (SQ) ---
EXAM DESCRIPTION: U/S EXTREMITY NONVASCULAR LTD COMPLETED DATE/TIME: 01/24/2020 7:12 pm REASON FOR STUDY: abscess eval back COMPARISON: None. TECHNIQUE: Dynamic and static grayscale images acquired of the localized site of clinical concern an d recorded on PACS. Additional selected color Doppler and spectral images recorded. SITE OF CONCERN: Back over the right shoulder blade LIMITATIONS: None. FINDINGS: Sonographic imaging was performed in the area of concern. No abnormal mass or fluid colle ction was seen. IMPRESSION: NO SOFT TISSUE MASS, FLUID COLLECTION, OR FOREIGN BODY. TECHNICAL DOCUMENTATION: JOB ID: [id number] 2010 [employer]- All Rights Reserved Reading location - IP/workstation name: [email or web address]
== END 2020-01-24 19:40 | disposition home or self-care (01) ==
LOC: ER 15:55
DX: L98.9 Disorder of the skin and subcutaneous tissue, unspecified (principal); E11.9 Type 2 diabetes mellitus without complications; I10 Essential (primary) hypertension; Z97.5 Presence of (intrauterine) contraceptive device; Z87.891 Personal history of nicotine dependence
CPT/HCPCS: 76882; 99283

== ENCOUNTER 2020-02-11 12:59 | Emergency (ER) | payer MEDICAID ==
--- NOTE | 2020-02-11 14:22 | ER Document Report ---
ED Medical Screen (RME) - General Stated Complaint: POSSIBLE CYST Time Seen by Provider: 02/11/20 14:18 Primary Care Provider: EVELYN PAULA MD [Primary Care Provider] - Follow up as needed Mode of Arrival: Ambulatory Information source: Patient Notes: Patient is an otherwise healthy 39-year-old female presenting to the emergency department with concern for lump to the top of her buttocks/low back. Patient reports this is been evolving over the last 6 months. She reports it is very tender. There is no surrounding erythema. It feels most consistent with a lipoma although she is exquisitely tender. She states she saw her primary care provider who told her that it may need to be surgically removed or drained. I have greeted and performed a rapid initial assessment of this patient. A comprehensive ED assessment and evaluation of the patient, analysis of test results and completion of the medical decision making process will be conducted by additional ED providers. I have specifically instructed the patient or family members with the patient to immediately return to any nursing staff should anything change in the patient's condition or with their chief complaint. TRAVEL OUTSIDE OF THE [place] IN LAST 30 DAYS: No - Related Data Allergies/Adverse Reactions: adhesive tape [Adhesive Tape] Allergy (Severe, Verified 02/11/20 14:16) Generalized Itching haloperidol [From Haldol] Allergy (Severe, Verified 02/11/20 14:16) "Panic attack" prochlorperazine maleate [From Compazine] Allergy (Severe, Verified 02/11/20 14:16) Shortness of breath latex [Latex] Allergy (Intermediate, Verified 02/11/20 14:16) Hives morphine Adverse Reaction (Severe, Verified 02/11/20 14:16) ? metoclopramide HCl [From Reglan] Adverse Reaction (Intermediate, Verified 02/11/20 14:16) "spazed out" Past Medical History - Past Medical History Cardiac Medical History: Reports: Hx Hypercholesterolemia, Hx Hypertension Denies: Hx Coronary Artery Disease, Hx Heart Attack Pulmonary Medical History: Denies: Hx Asthma, Hx Bronchitis, Hx COPD, Hx Pneumonia Neurological Medical History: Reports: Hx Cerebrovascular Accident, Hx Migraine. Denies: Hx Seizures Endocrine Medical History: Reports: Hx Diabetes Mellitus Type 2 Renal/ Medical History: Denies: Hx Peritoneal Dialysis GI Medical History: Musculoskeltal Medical History: Reports Hx Arthritis - B/L WRIST Psychiatric Medical History: Reports: Hx Depression Infectious Medical History: Past Surgical History: Reports: Hx Abdominal Surgery - , Hx Appendectomy, Hx Bowel Surgery, Hx Section, Hx Cholecystectomy, Hx Hysterectomy, Hx Orthopedic Surgery - carpal tunnel surgery, Hx Tonsillectomy, Hx Tubal Ligation. Denies: Hx Pacemaker - Immunizations Hx Diphtheria, Pertussis, Tetanus Vaccination: Yes Physical Exam - Vital signs Vitals: Temp Pulse Resp BP Pulse Ox 98.5 F 99 20 146/82 H 94 02/11/20 14:07 02/11/20 14:07 02/11/20 14:07 02/11/20 14:07 02/11/20 14:07 Course - Vital Signs Vital signs: Temp Pulse Resp BP Pulse Ox 98.5 F 99 20 146/82 H 94 02/11/20 14:07 02/11/20 14:07 02/11/20 14:07 02/11/20 14:07 02/11/20 14:07 Doctor's Discharge - Discharge Referrals: EVELYN PAULA MD [Primary Care Provider] - Follow up as needed
--- NOTE | 2020-02-11 17:00 | ER Document Report ---
ED General - General Chief Complaint: Abscess Stated Complaint: POSSIBLE CYST Time Seen by Provider: 02/11/20 14:18 Primary Care Provider: EVELYN PAULA MD [Primary Care Provider] - Follow up as needed Mode of Arrival: Ambulatory Notes: Patient is a 39-year-old white female with past medical history of diabetes, hyperlipidemia and morbid obesity who presents to the emergency department with a chief complaint of lower back mass formation that began about 6 months ago. She states that initially started as a small area just above the gluteal cleft. She states over the past 6 months it has gradually grown to the size of a baked potato. She states the area is tender. Denies any redness or drainage. Denies any fever chills or night sweats. Admits to some nausea but no vomiting. States that she saw her doctor outpatient who advised it might be a lipoma and may need to be surgically removed/drained. TRAVEL OUTSIDE OF THE [place] IN LAST 30 DAYS: No - Related Data Allergies/Adverse Reactions: adhesive tape [Adhesive Tape] Allergy (Severe, Verified 02/11/20 14:16) Generalized Itching haloperidol [From Haldol] Allergy (Severe, Verified 02/11/20 14:16) "Panic attack" prochlorperazine maleate [From Compazine] Allergy (Severe, Verified 02/11/20 14:16) Shortness of breath latex [Latex] Allergy (Intermediate, Verified 02/11/20 14:16) Hives morphine Adverse Reaction (Severe, Verified 02/11/20 14:16) ? metoclopramide HCl [From Reglan] Adverse Reaction (Intermediate, Verified 02/11/20 14:16) "spazed out" Home Medications: [facility] Past Medical History - General Information source: Patient - Social History Smoking Status: Former Smoker Chew tobacco use (# tins/day): No Frequency of alcohol use: None Drug Abuse: None Family History: None, Reviewed & Not Pertinent Patient has suicidal ideation: No Patient has homicidal ideation: No - Past Medical History Cardiac Medical History: Reports: Hx Hypercholesterolemia, Hx Hypertension Denies: Hx Coronary Artery Disease, Hx Heart Attack Pulmonary Medical History: Denies: Hx Asthma, Hx Bronchitis, Hx COPD, Hx Pneumonia Neurological Medical History: Reports: Hx Cerebrovascular Accident, Hx Migraine. Denies: Hx Seizures Endocrine Medical History: Reports: Hx Diabetes Mellitus Type 2 Renal/ Medical History: Denies: Hx Peritoneal Dialysis GI Medical History: Musculoskeletal Medical History: Reports Hx Arthritis - B/L WRIST Psychiatric Medical History: Reports: Hx Depression Infectious Medical History: Past Surgical History: Reports: Hx Abdominal Surgery - , Hx Appendectomy, Hx Bowel Surgery, Hx Section, Hx Cholecystectomy, Hx Hysterectomy, Hx Orthopedic Surgery - carpal tunnel surgery, Hx Tonsillectomy, Hx Tubal Ligation. Denies: Hx Pacemaker - Immunizations Hx Diphtheria, Pertussis, Tetanus Vaccination: Yes Review of Systems - Review of Systems Skin: Lumps -: Yes All other systems reviewed and negative Physical Exam - Vital signs Vitals: Temp Pulse Resp BP Pulse Ox 98.5 F 99 20 146/82 H 94 02/11/20 14:07 02/11/20 14:07 02/11/20 14:07 02/11/20 14:07 02/11/20 14:07 - General General appearance: Appears well, Alert In distress: None - Respiratory Respiratory status: No respiratory distress Chest status: Nontender Breath sounds: Normal Chest palpation: Normal - Cardiovascular Rhythm: Regular Heart sounds: Normal auscultation - Back Back: Other - Swollen area that is tender just above the sacrum and gluteal c left of the back. No clear fluctuance. There is no erythema or increased warmth. No drainage or pointing. - Neurological Neuro grossly intact: Yes Cognition: Normal Orientation: AAOx4 Harrison Coma Scale Eye Opening: Spontaneous Holcomb Coma Scale Verbal: Oriented Holcomb Coma Scale Motor: Obeys Commands Holcomb Coma Scale Total: 15 Speech: Normal Motor strength normal: LUE, RUE, LLE, RLE Sensory: Normal - Psychological Associated symptoms: Normal affect, Normal mood - Skin Skin Temperature: Warm Skin Moisture: Dry Skin Color: Normal Course - Re-evaluation Re-evalutation: 02/11/20 19:24 CT showing 2 lipomas above the buttock per radiologist. Patient reports significant pain with these. No evidence of infection. Should be given a dose of pain medicine here. She states that she has chronic pain medicines at home from pain management. She will follow-up with her surgeon that she already has an established relationship with. Counseled her at length regarding the importance of outpatient follow-up and advised she return here or any ER immediately with any new, persistent or worsening symptoms. She verbalized understood and agreed. - Vital Signs Vital signs: Temp Pulse Resp BP Pulse Ox 98.5 F 99 20 146/82 H 94 02/11/20 14:07 02/11/20 14:07 02/11/20 14:07 02/11/20 14:07 02/11/20 14:07 - Laboratory Result Diagrams: 02/11/20 18:38 02/11/20 18:09 Laboratory results interpreted by me: 02/11/20 02/11/20 18:09 18:38 RDW 14.6 H Plt Count 138 L Chloride 94 L Carbon Dioxide 33 H Creatinine 0.40 L Glucose 216 H AST 48 H Discharge - Discharge Clinical Impression: Lipoma of back Condition: Stable Disposition: HOME, SELF-CARE Instructions: Oral Narcotic Medication ([facility]) Additional Instructions: Please follow-up with your surgeon as discussed. Return here or any ER immediat liz with any new, persistent or worsening symptoms. Referrals: EVELYN PAULA MD [Primary Care Provider] - Follow up as needed
[2020-02-11 18:33] LABS: ALBUMIN 4.4 g/dL (3.5-5.0); ALKALINE PHOSPHATASE 103 U/L (38-126); ANION GAP 10 (5-19); ASPARTATE AMINO TRANSFERASE 48 U/L (14-36); BILIRUBIN,DIRECT 0.4 mg/dL (0.0-0.4); BILIRUBIN,TOTAL 0.5 mg/dL (0.2-1.3); BLOOD UREA NITROGEN 14 mg/dL (7-20); CARBON DIOXIDE 33 mmol/L (22-30); CHLORIDE 94 mmol/L (98-107); GLUCOSE 216 mg/dL (75-110); POTASSIUM 4.2 mmol/L (3.6-5.0)
[2020-02-11 18:38] LABS: TOTAL PROTEIN 7.7 g/dL (6.3-8.2)
[2020-02-11 19:03] LABS: ABSOLUTE BASOPHILS # (AUTO) 0.1 10^3/uL (0.0-0.2); ABSOLUTE EOSINOPHILS # (AUTO) 0.1 10^3/uL (0.0-0.6); ABSOLUTE LYMPHOCYTES (AUTO) 2.2 10^3/uL (0.5-4.7); ABSOLUTE MONOCYTES (AUTO) 0.3 10^3/uL (0.1-1.4); ABSOLUTE NEUT (AUTO) 4.9 10^3/uL (1.7-8.2); BASOPHILS % (AUTO) 0.8 % (0-2); EOSINOPHILS % (AUTO) 1.9 % (0-6); HEMATOCRIT 41.7 % (36.0-47.0); HEMOGLOBIN 13.9 g/dL (12.0-15.5); MEAN CORPUSCULAR HEMOGLOBIN 28.5 pg (27.0-33.4); MEAN CORPUSCULAR HGB CONC 33.2 g/dL (32.0-36.0); MEAN CORPUSCULAR VOLUME 86 fl (80-97); MONOCYTES % (AUTO) 4.4 % (3-13); PLATELET COUNT 138 10^3/uL (150-450); RED BLOOD COUNT 4.86 10^6/uL (3.72-5.28); RED CELL DISTRIBUTION WIDTH 14.6 % (11.5-14.0); SEGMENTED NEUTROPHILS % (AUTO) 63.9 % (42-78); TOTAL CELLS COUNTED % (AUTO) 100 %; WHITE BLOOD COUNT 7.6 10^3/uL (4.0-10.5)
--- NOTE | 2020-02-11 19:16 | RADIOLOGY REPORT (SQ) ---
EXAM DESCRIPTION: CT PELVIS WITH COMPLETED DATE/TIME: 02/11/2020 6:57 pm REASON FOR STUDY: lower back mass COMPARISON: None. TECHNIQUE: CT scan of the pelvis performed without intravenous or oral contrast. Images reviewed wi th soft tissue and bone windows. Reconstructed coronal and sagittal MPR images reviewed. All images stored on PACS. All CT scanners at this facility use dose modulation, iterative reconstruction, and/or weight based d osing when appropriate to reduce radiation dose to as low as reasonably achievable (ALARA). [facility]: Dose Right [facility]: CareDose [facility]: Dose Right [facility]: Teradose 4D [facility]: Smart Kwicr RADIATION DOSE: CT Rad equipment meets quality standard of care and radiation dose reduction techniq ues were employed. CTDIvol: 21.1 mGy. DLP: 905 mGy-cm. mGy. LIMITATIONS: None. FINDINGS: PELVIC BONES: No acute fracture. No worrisome bone lesions. VISUALIZED SPINE: No acute findings. HIP(S): No acute fracture or dislocation. No worrisome bone lesions. PELVIC SOFT TISSUES: No significant findings. EXTRAPELVIC SOFT TISSUES: Cannot exclude bilateral lipomas just above the buttocks. OTHER: No other significant finding. IMPRESSION: There appear to be bilateral lipomas just above the buttocks. No intrapelvic pathology. TECHNICAL DOCUMENTATION: JOB ID: [id number] Quality ID # [id number]: Final reports with documentation of one or more dose reduction techniques (e.g., Au tomated exposure control, adjustment of the mA and/or kV according to patient size, use of iterative reconstruction technique) 2010 [employer]- All Rights Reserved Reading location - IP/workstation name: [email or web address]
[2020-02-11] MEDS ORDERED: HYDROMORPHONE HCL INJ/PF 2 MG/ML AMPULE IV ONE (19:22)
[2020-02-11] MEDS ORDERED: PROMETHAZINE HCL 25 MG TABLET PO ONE (19:24)
[2020-02-11 20:17] VITALS: BP 124/60
== END 2020-02-11 19:46 | disposition home or self-care (01) ==
LOC: ER 12:59
DX: D17.1 Benign lipomatous neoplasm of skin and subcutaneous tissue of trunk (principal); I10 Essential (primary) hypertension; E11.9 Type 2 diabetes mellitus without complications; Z87.891 Personal history of nicotine dependence; Z88.8 Allergy status to other drugs, medicaments and biological substances; Z91.048 Other nonmedicinal substance allergy status; Z91.041 Radiographic dye allergy status
CPT/HCPCS: 99283; 96374; 36415; 84703; 85025; 80053; 72193; J1170; J3490

== ENCOUNTER 2020-03-01 07:38 | Emergency (ER) | payer MEDICAID ==
[2020-03-01 07:50] VITALS: BP 148/88
--- NOTE | 2020-03-01 09:37 | ER Document Report ---
ED General - General Chief Complaint: Cough Stated Complaint: COUGH Primary Care Provider: EVELYN PAULA MD [Primary Care Provider] - Follow up as needed Notes: Patient is a 39-year-old white female with a past medical history of diabetes and hypertension who presents to the emergency department the chief complaint of sinus congestion, nasal congestion for the past 4 to 5 days. She states over the past 2 days she is developed a dry cough that is coarse. She denies any known sick contacts or any recent travel. Denies any fever. Admits to some nausea associated with the coughing. Denies any sore throat, vomiting, diarrhea, abdominal pain, chest pain or shortness of breath. TRAVEL OUTSIDE OF THE [place] IN LAST 30 DAYS: No - Related Data Allergies/Adverse Reactions: adhesive tape [Adhesive Tape] Allergy (Severe, Verified 02/11/20 14:16) Generalized Itching haloperidol [From Haldol] Allergy (Severe, Verified 02/11/20 14:16) "Panic attack" prochlorperazine maleate [From Compazine] Allergy (Severe, Verified 02/11/20 14:16) Shortness of breath latex [Latex] Allergy (Intermediate, Verified 02/11/20 14:16) Hives morphine Adverse Reaction (Severe, Verified 02/11/20 14:16) ? metoclopramide HCl [From Reglan] Adverse Reaction (Intermediate, Verified 02/11/20 14:16) "spazed out" Past Medical History - Social History Smoking Status: Never Smoker Chew tobacco use (# tins/day): No Frequency of alcohol use: None Drug Abuse: None Family History: None, Reviewed & Not Pertinent Patient has suicidal ideation: No Patient has homicidal ideation: No - Past Medical History Cardiac Medical History: Reports: Hx Hypercholesterolemia, Hx Hypertension Denies: Hx Coronary Artery Disease, Hx Heart Attack Pulmonary Medical History: Denies: Hx Asthma, Hx Bronchitis, Hx COPD, Hx Pneumonia Neurological Medical History: Reports: Hx Cerebrovascular Accident, Hx Migraine. Denies: Hx Seizures Endocrine Medical History: Reports: Hx Diabetes Mellitus Type 2 Renal/ Medical History: Denies: Hx Peritoneal Dialysis GI Medical History: Musculoskeletal Medical History: Reports Hx Arthritis - B/L WRIST Psychiatric Medical History: Reports: Hx Depression Infectious Medical History: Past Surgical History: Reports: Hx Abdominal Surgery - , Hx Appendectomy, Hx Bowel Surgery, Hx Section, Hx Cholecystectomy, Hx Hysterectomy, Hx Orthopedic Surgery - carpal tunnel surgery, Hx Tonsillectomy, Hx Tubal Ligation. Denies: Hx Pacemaker - Immunizations Hx Diphtheria, Pertussis, Tetanus Vaccination: Yes Review of Systems - Review of Systems EENT: Nose congestion, Sinus pressure Respiratory: Cough Gastrointestinal: Nausea -: Yes All other systems reviewed and negative Physical Exam - Vital signs Vitals: Temp Pulse Resp BP Pulse Ox 98.6 F 95 20 148/88 H 98 03/01/20 07:48 03/01/20 07:48 03/01/20 07:48 03/01/20 07:48 03/01/20 07:48 - General General appearance: Appears well, Alert In distress: None - HEENT Head: Normocephalic Eyes: Normal Conjunctiva: Normal Neck: Supple - Respiratory Respiratory status: No respiratory distress - Neurological Neuro grossly intact: Yes Cognition: Normal Orientation: AAOx4 - Psychological Associated symptoms: Normal affect, Normal mood - Skin Skin Temperature: Warm Skin Moisture: Dry Course - Re-evaluation Re-evalutation: 03/01/20 09:37 Patient's visit and evaluation via telemedicine in the emergency department. Limited examination. She is low risk per history for any coronavirus exposure. Her history and physical is consistent with a sinusitis and postnasal drainage with a secondary cough. We will rule out influenza, strep and check a chest x- ray. 03/01/20 10:32 Chest x-ray negative for acute process per radiologist. Strep and flu swabs negative. History and physical consistent with a sinusitis with postnasal drainage and secondary cough. Patient will be started on Flonase, Claritin-D and Tessalon Perles. Encouraged to push clear fluids and rest. She is low risk for any potential coronavirus exposure or illness. She will self isolate until feeling better. I instructed her to return here or any ER immediately with any new, persistent or worsening symptoms. She verbalized understood and agreed. - Vital Signs Vital signs: Temp Pulse Resp BP Pulse Ox 98.6 F 95 20 148/88 H 98 03/01/20 07:48 03/01/20 07:48 03/01/20 07:48 03/01/20 07:48 03/01/20 07:48 Discharge - Discharge Clinical Impression: Cough Sinusitis Qualifiers: Sinusitis location: unspecified location Chronicity: acute Recurrence: not specified as recurrent Qualified Code(s): J01.90 - Acute sinusitis, unspecified Condition: Stable Disposition: HOME, SELF-CARE Instructions: Sinusitis ([facility]) Additional Instructions: Follow-up with your regular doctor in 2 to 3 days for reevaluation. Return here or any ER immediately with any new, persistent or worsening symptoms. Prescriptions: Benzonatate [Tessalon Perles 100 mg Capsule] 200 mg PO Q8HP PRN #40 capsule PRN Reason: Loratadine/Pseudoephedrine Sul [Claritin-D 24 Hour Tablet] 1 tab PO DAILY #15 ta b.sr.24h Fluticasone Propionate [Flonase Nasal [place] 50 Mcg/[place] 16 gm] 1 spray NASL Q12 #1 inhaler Referrals: EVELYN PAULA MD [Primary Care Provider] - Follow up as needed
[2020-03-01 10:01] LABS: A TYPE INFLUENZA AG NEGATIVE (NEGATIVE); B INFLUENZA AG NEGATIVE (NEGATIVE)
--- NOTE | 2020-03-01 10:25 | RADIOLOGY REPORT (SQ) ---
EXAM DESCRIPTION: CHEST SINGLE VIEW IMAGES COMPLETED DATE/TIME: 03/01/2020 10:14 am REASON FOR STUDY: cough COMPARISON: 08/20/2018 EXAM PARAMETERS: NUMBER OF VIEWS: One view. TECHNIQUE: Single frontal radiographic view of the chest acquired. RADIATION DOSE: NA LIMITATIONS: None. FINDINGS: LUNGS AND PLEURA: No opacities, masses or pneumothorax. No pleural effusion. MEDIASTINUM AND HILAR STRUCTURES: No masses. Contour normal. HEART AND VASCULAR STRUCTURES: Heart normal in size. Normal vasculature. BONES: No acute findings. HARDWARE: None in the chest. OTHER: No other significant finding. IMPRESSION: NO ACUTE RADIOGRAPHIC FINDING IN THE CHEST. TECHNICAL DOCUMENTATION: JOB ID: [id number] 2010 [employer]- All Rights Reserved Reading location - IP/workstation name: [email or web address]
== END 2020-03-01 10:47 | disposition home or self-care (01) ==
LOC: ER 07:38
DX: J01.90 Acute sinusitis, unspecified (principal); R05 Cough; R09.81 Nasal congestion; R11.0 Nausea; Z88.8 Allergy status to other drugs, medicaments and biological substances; I10 Essential (primary) hypertension; E11.9 Type 2 diabetes mellitus without complications
CPT/HCPCS: 71045; 87070; 87804; 87880; 99283

== ENCOUNTER 2020-04-05 08:18 | Emergency (ER) | payer MEDICAID ==
[2020-04-05 08:31] VITALS: BP 144/75
--- NOTE | 2020-04-05 08:46 | ER Document Report ---
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 VSS NAD my notes 39-year-old endomorphic female with chief complaint of acute on chronic pain in her low back. Pain is quite severe today and patient requests a shot for pain. Patient points to her sacral area rather than to any back lipomas. Initial palpation of this area reveals only adipose rather than lipoma. Patient uses a cane in order to walk because she has had overuse problems for years when she was younger. Her cane consists of a retired golf club with the putter head removed. She uses this with her right hand. Patient is right-hand dominant. She denies any cephalgia fevers chills cough cold skin rash or trauma or overuse or abuse. She denies any radiation down her lower legs. Patient reports in the past shot for pain work for least 3 to 4 days. She has attempted to use oral medication without resolution of her symptoms. TRAVEL OUTSIDE OF THE [place] IN LAST 30 DAYS: No - HPI Onset: Other Severity: Moderate Pain Level: 3 Associated symptoms: None - 2 to Exacerbated by: Movement, Walking Relieved by: Remaining still Similar symptoms previously: Yes Recently seen / treated by doctor: Yes - Related Data Allergies/Adverse Reactions: adhesive tape [Adhesive Tape] Allergy (Severe, Verified 02/11/20 14:16) Generalized Itching haloperidol [From Haldol] Allergy (Severe, Verified 02/11/20 14:16) "Panic attack" prochlorperazine maleate [From Compazine] Allergy (Severe, Verified 02/11/20 14:16) Shortness of breath latex [Latex] Allergy (Intermediate, Verified 02/11/20 14:16) Hives morphine Adverse Reaction (Severe, Verified 02/11/20 14:16) ? metoclopramide HCl [From Reglan] Adverse Reaction (Intermediate, Verified 02/11/20 14:16) "spazed out" Past Medical History - General Information source: Patient - Social History Smoking Status: Never Smoker Cigarette use (# per day): No Chew tobacco use (# tins/day): No Smoking Education Provided: No Frequency of alcohol use: None Drug Abuse: None Lives with: Family Family History: None, Reviewed & Not Pertinent Patient has suicidal ideation: No Patient has homicidal ideation: No - Past Medical History Cardiac Medical History: Reports: Hx Hypercholesterolemia, Hx Hypertension Denies: Hx Coronary Artery Disease, Hx Heart Attack Pulmonary Medical History: Denies: Hx Asthma, Hx Bronchitis, Hx COPD, Hx Pneumonia Neurological Medical History: Reports: Hx Cerebrovascular Accident, Hx Migraine. Denies: Hx Seizures Endocrine Medical History: Reports: Hx Diabetes Mellitus Type 2 Renal/ Medical History: Denies: Hx Peritoneal Dialysis GI Medical History: Musculoskeletal Medical History: Reports Hx Arthritis - B/L WRIST Psychiatric Medical History: Reports: Hx Depression Infectious Medical History: Past Surgical History: Reports: Hx Abdominal Surgery - , Hx Appendectomy, Hx Bowel Surgery, Hx Section, Hx Cholecystectomy, Hx Hysterectomy, Hx Orthopedic Surgery - carpal tunnel surgery, Hx Tonsillectomy, Hx Tubal Ligation. Denies: Hx Pacemaker - Immunizations Hx Diphtheria, Pertussis, Tetanus Vaccination: Yes Review of Systems - Review of Systems Constitutional: No symptoms reported EENT: No symptoms reported Cardiovascular: No symptoms reported Respiratory: No symptoms reported Gastrointestinal: No symptoms reported Genitourinary: No symptoms reported Female Genitourinary: No symptoms reported Musculoskeletal: See HPI, Back pain - pt points to sacral area Skin: See HPI, Lesions Hematologic/Lymphatic: No symptoms reported Neurological/Psychological: No symptoms reported Physical Exam - Vital signs Vitals: Temp 98.2 F 04/05/20 08:19 Interpretation: Tachycardic - General General appearance: Alert, Other - In general a 39-year-old white female in mild distress from back pain endomorphic in body habitus - HEENT Head: Normocephalic, Atraumatic Eyes: Normal Pupils: PERRL - Respiratory Respiratory status: No respiratory distress Chest status: Nontender Breath sounds: Normal Chest palpation: Normal - Cardiovascular Rhythm: Regular Heart sounds: Normal auscultation Murmur: No - Abdominal Inspection: Normal Distension: No distension Bowel sounds: Normal Tenderness: Nontender Organomegaly: No organomegaly - Genitourinary External exam: Other - deferred - Back Back: Tender - sacral area on p/p with no lipoma noted on my exam only diffuse adipose - Extremities General upper extremity: Normal inspection General lower extremity: Normal inspection - Neurological Neuro grossly intact: Yes Cognition: Normal Orientation: AAOx4 [place] Coma Scale Eye Opening: Spontaneous [place] Coma Scale Verbal: Oriented [place] Coma Scale Motor: Obeys Commands [place] Coma Scale Total: 15 Speech: Normal Motor strength normal: LUE, RUE, LLE, RLE Sensory: Normal - Psychological Associated symptoms: Normal affect - Skin Skin Temperature: Warm Skin Moisture: Dry - And dry Course - Vital Signs Vital signs: Temp Pulse Resp BP Pulse Ox 98.7 F 103 H 17 144/75 H 96 04/05/20 08:24 04/05/20 08:24 04/05/20 08:24 04/05/20 08:24 04/05/20 08:24 Critical Care Note - Critical Care Note Total time excluding time spent on procedures (mins): 60 Discharge - Discharge Clinical Impression: Sacral back pain Condition: Good Disposition: HOME, SELF-CARE Instructions: Pain Medication Injection ([facility]), Low Back Pain ([facility]) Additional Instructions: Follow-up with personal doctor this week as well as Dr. Santiago Rivas if symptoms persist take medicines as directed encourage fluids avoid bending twisting or lifting. Prescriptions: Dexamethasone [Decadron 4 Mg Tablet] 4 mg PO DAILY #4 tablet Chlorzoxazone [Parafon Forte Dsc 500 Mg Tablet] 500 mg PO BID PRN #20 tablet PRN Reason: Referrals: EVELYN PAULA MD [Primary Care Provider] - Follow up as needed
[2020-04-05] MEDS ORDERED: HYDROMORPHONE HCL INJ/PF 2 MG/ML AMPULE IM ONE (08:57)
[2020-04-05] MEDS ORDERED: DEXAMETHASONE SOD PHOS INJ 10 MG/1 ML VIAL IM ONE (08:58)
[2020-04-05] MEDS ORDERED: PROMETHAZINE HCL INJ 25 MG/1 ML VIAL IM ONE (08:58)
== END 2020-04-05 09:43 | disposition home or self-care (01) ==
LOC: ER 08:18
DX: M54.5 Low back pain (principal); L98.9 Disorder of the skin and subcutaneous tissue, unspecified; I10 Essential (primary) hypertension; E11.9 Type 2 diabetes mellitus without complications; Z91.048 Other nonmedicinal substance allergy status; Z88.8 Allergy status to other drugs, medicaments and biological substances; Z91.040 Latex allergy status
CPT/HCPCS: 99284; 96372; J1170; J2550; J1100

== ENCOUNTER 2020-04-16 19:56 | Emergency (ER) | payer MEDICAID ==
--- NOTE | 2020-04-16 20:38 | ER Document Report ---
ED Medical Screen (RME) - General Chief Complaint: Headache Stated Complaint: HEADACHE Time Seen by Provider: 04/16/20 20:36 Primary Care Provider: EVELYN PAULA MD [Primary Care Provider] - Follow up as needed Mode of Arrival: Ambulatory Information source: Patient Notes: 39-year-old female presented to ED for large swollen red area to the base of the neck. She states that it started 4 days ago at the same time that her headache started. She states she has been taking a Fioricet that she normally takes for headache but does not seem to be helping as much as it normally does. She states she also had a trigger finger release done this morning at orthopedics on her left middle finger. That is why her left hand is bandaged up and that is not why she is here. Patient is alert oriented respirations regular and unlabored speaking in full sentences. She states that the area got larger and darker so her significant other stated that she needed to come and find out what the red swollen area was on the back of her neck. She does have several lipomas in other areas of her body. I have greeted and performed a rapid initial assessment of this patient. A comprehensive ED assessment and evaluation of the patient, analysis of test results and completion of medical decision making process will be conducted by an additional ED providers. TRAVEL OUTSIDE OF THE [place] IN LAST 30 DAYS: No - Related Data Allergies/Adverse Reactions: adhesive tape [Adhesive Tape] Allergy (Severe, Verified 02/11/20 14:16) Generalized Itching haloperidol [From Haldol] Allergy (Severe, Verified 02/11/20 14:16) "Panic attack" prochlorperazine maleate [From Compazine] Allergy (Severe, Verified 02/11/20 14:16) Shortness of breath latex [Latex] Allergy (Intermediate, Verified 02/11/20 14:16) Hives morphine Adverse Reaction (Severe, Verified 02/11/20 14:16) ? metoclopramide HCl [From Reglan] Adverse Reaction (Intermediate, Verified 02/11/20 14:16) "spazed out" Past Medical History - Past Medical History Cardiac Medical History: Reports: Hx Hypercholesterolemia, Hx Hypertension Denies: Hx Coronary Artery Disease, Hx Heart Attack Pulmonary Medical History: Denies: Hx Asthma, Hx Bronchitis, Hx COPD, Hx Pneumonia Neurological Medical History: Reports: Hx Cerebrovascular Accident, Hx Migraine. Denies: Hx Seizures Endocrine Medical History: Reports: Hx Diabetes Mellitus Type 2 Renal/ Medical History: Denies: Hx Peritoneal Dialysis GI Medical History: Musculoskeltal Medical History: Reports Hx Arthritis - B/L WRIST Psychiatric Medical History: Reports: Hx Depression Infectious Medical History: Past Surgical History: Reports: Hx Abdominal Surgery - , Hx Appendectomy, Hx Bowel Surgery, Hx Section, Hx Cholecystectomy, Hx Hysterectomy, Hx Orthopedic Surgery - carpal tunnel surgery, Hx Tonsillectomy, Hx Tubal Ligation. Denies: Hx Pacemaker - Immunizations Hx Diphtheria, Pertussis, Tetanus Vaccination: Yes Physical Exam - Vital signs Vitals: Temp Pulse Resp BP Pulse Ox 98.7 F 108 H 18 138/64 H 97 04/16/20 20:00 04/16/20 20:00 04/16/20 20:00 04/16/20 20:00 04/16/20 20:00 Course - Vital Signs Vital signs: Temp Pulse Resp BP Pulse Ox 98.7 F 108 H 18 138/64 H 97 04/16/20 20:00 04/16/20 20:00 04/16/20 20:00 04/16/20 20:00 04/16/20 20:00 Doctor's Discharge - Discharge Referrals: EVELYN PAULA MD [Primary Care Provider] - Follow up as needed
--- NOTE | 2020-04-16 22:52 | ER Document Report ---
ED General - General Chief Complaint: Skin Problem Stated Complaint: HEADACHE Time Seen by Provider: 04/16/20 20:36 Primary Care Provider: EVELYN PAULA MD [Primary Care Provider] - Follow up as needed Mode of Arrival: Ambulatory Notes: 39-year-old female presents today with a swollen tender mass x4 days on the back of her neck the size of a softball. Reports it has increased in size in the last 4 days. She states that it feels like a pressure pushing on the back of her neck. Notes that she does have 2 lipomas on her lower back. She also notes a mild headache feels like a pressure that is deep to the mass. Denies any pain with movement of the neck. Denies any neurological issues. She did have a tendon release surgery performed this morning on her left hand. She also notes some excoriations on her forearms that she states are due to bug bites. Denies any fevers chills shortness of breath chest pain abdominal pain. Does report that she does have a boil on her inner right thigh that is resolving. TRAVEL OUTSIDE OF THE [place] IN LAST 30 DAYS: No - Related Data Allergies/Adverse Reactions: adhesive tape [Adhesive Tape] Allergy (Severe, Verified 02/11/20 14:16) Generalized Itching haloperidol [From Haldol] Allergy (Severe, Verified 02/11/20 14:16) "Panic attack" prochlorperazine maleate [From Compazine] Allergy (Severe, Verified 02/11/20 14:16) Shortness of breath latex [Latex] Allergy (Intermediate, Verified 02/11/20 14:16) Hives morphine Adverse Reaction (Severe, Verified 02/11/20 14:16) ? metoclopramide HCl [From Reglan] Adverse Reaction (Intermediate, Verified 02/11/20 14:16) "spazed out" Home Medications: fiorocet, promethazine, ppercocet 5, trazadone, flexeril, metformin, pregablin, duloxetine, HCTZ, torsemide, humulin U-500 sliding scale, bactrim Past Medical History - General Information source: Patient - Social History Smoking Status: Former Smoker Lives with: Family Family History: None, Reviewed & Not Pertinent Patient has homicidal ideation: No - Past Medical History Cardiac Medical History: Reports: Hx Hypercholesterolemia, Hx Hypertension Denies: Hx Coronary Artery Disease, Hx Heart Attack Pulmonary Medical History: Denies: Hx Asthma, Hx Bronchitis, Hx COPD, Hx Pneumonia Neurological Medical History: Reports: Hx Cerebrovascular Accident, Hx Migraine. Denies: Hx Seizures Endocrine Medical History: Reports: Hx Diabetes Mellitus Type 2 Renal/ Medical History: Denies: Hx Peritoneal Dialysis GI Medical History: Musculoskeletal Medical History: Reports Hx Arthritis - B/L WRIST Psychiatric Medical History: Reports: Hx Depression Infectious Medical History: Past Surgical History: Reports: Hx Abdominal Surgery - , Hx Appen dectomy, Hx Bowel Surgery, Hx Section, Hx Cholecystectomy, Hx Hysterectomy - tubes removed, novasure, Hx Orthopedic Surgery - carpal tunnel surgery, Hx Tonsillectomy, Hx Tubal Ligation. Denies: Hx Pacemaker - Immunizations Hx Diphtheria, Pertussis, Tetanus Vaccination: Yes Review of Systems - Review of Systems Constitutional: No symptoms reported EENT: No symptoms reported Cardiovascular: No symptoms reported Respiratory: No symptoms reported Gastrointestinal: No symptoms reported Genitourinary: No symptoms reported Skin: See HPI Neurological/Psychological: No symptoms reported Physical Exam - Vital signs Vitals: Temp Pulse Resp BP Pulse Ox 98.7 F 108 H 18 138/64 H 97 04/16/20 20:00 04/16/20 20:00 04/16/20 20:00 04/16/20 20:00 04/16/20 20:00 - Notes Notes: Adult General: GENERAL: Alert, interacts well. No acute distress HEAD: Normocephalic, atraumatic EYES: Pupils equal, round and reactive to light. Extraocular movements intact. NECK: Full range of motion. Supple. Trachea midline. No lymphadenopathy. GENITOURINARY: Deferred EXTREMITIES: Moves all 4 extremities spontaneously. NEUROLOGICAL: Alert and oriented x3. Normal speech. PSYCH: Normal affect, normal mood. SKIN: Tender, approximately 10 cm in diameter mass on back of neck. No overlying warmth or fluctuance noted underneath. Warm, dry, normal turgor. Course - Re-evaluation Re-evalutation: 04/17/20 01:[address] scan of the soft tissue of the neck shows no masses identified, likely due to body habitus of patient. 04/17/20 03:39 Ultrasound shows a 10.7 hypoechoic, nonvascular subcutaneous mass. Based on imaging I suspect this is a lipoma. No additional evaluation in the ER is necessary at this time. At this point recommend patient will need to follow-up with her primary care for further evaluation within 3-5 days. Patient is in agreement with plan all questions answered. - Vital Signs Vital signs: Temp Pulse Resp BP Pulse Ox 98.5 F 98 18 134/71 H 95 04/17/20 04:04 04/17/20 04:04 04/17/20 04:04 04/17/20 04:04 04/17/20 04:04 - Laboratory Result Diagrams: 04/16/20 22:58 04/16/20 22:58 Laboratory results interpreted by me: 04/16/20 04/16/20 22:58 22:58 RDW 15.0 H Band Neutrophils % 2 L Monocytes % (Manual) 1 L Sodium 134.7 L Chloride 97 L Creatinine 0.49 L Glucose 292 H AST 77 H ALT 43 H Discharge - Discharge Clinical Impression: Subcutaneous mass Condition: Stable Disposition: HOME, SELF-CARE Additional Instructions: Your imaging shows a subcutaneous mass mass on the back of your neck which could represent a lipoma. We recommend to follow-up with your primary care provider in 3 to 5 days for further evaluation. Return precautions include worsening symptoms or development of new symptoms. Referrals: EVELYN PAULA MD [Primary Care Provider] - Follow up as needed
[2020-04-16 23:11] LABS: HEMATOCRIT 42.5 % (36.0-47.0); HEMOGLOBIN 14.2 g/dL (12.0-15.5); MEAN CORPUSCULAR HEMOGLOBIN 28.8 pg (27.0-33.4); MEAN CORPUSCULAR HGB CONC 33.4 g/dL (32.0-36.0); MEAN CORPUSCULAR VOLUME 86 fl (80-97); PLATELET COUNT 162 10^3/uL (150-450); RED BLOOD COUNT 4.93 10^6/uL (3.72-5.28); WHITE BLOOD COUNT 7.8 10^3/uL (4.0-10.5)
[2020-04-16 23:31] LABS: ABSOLUTE MONOCYTES # (MANUAL) 0.1 10^3/uL (0.1-1.4); ALBUMIN 4.2 g/dL (3.5-5.0); ALKALINE PHOSPHATASE 116 U/L (38-126); ANION GAP 11 (5-19); ASPARTATE AMINO TRANSFERASE 77 U/L (14-36); BAND NEUTROPHILS % (MANUAL) 2 % (3-5); BASOPHILS % (MANUAL) 0 % (0-2); BILIRUBIN,TOTAL 0.4 mg/dL (0.2-1.3); BLOOD UREA NITROGEN 12 mg/dL (7-20); CALCIUM 9.4 mg/dL (8.4-10.2); CARBON DIOXIDE 27 mmol/L (22-30); CHLORIDE 97 mmol/L (98-107); EOSINOPHILS % (MANUAL) 2 % (0-6); GLUCOSE 292 mg/dL (75-110); LYMPHOCYTES % (MANUAL) 36 % (13-45); MONOCYTES % (MANUAL) 1 % (3-13); POTASSIUM 3.8 mmol/L (3.6-5.0); SEGMENTED NEUTROPHILS % (MAN) 56 % (42-78); TOTAL CELLS COUNTED 100; TOTAL PROTEIN 7.1 g/dL (6.3-8.2)
[2020-04-16 23:32] LABS: ANISOCYTOSIS SLIGHT
[2020-04-16 23:34] LABS: PLATELET COMMENT ADEQUATE
--- NOTE | 2020-04-17 01:20 | RADIOLOGY REPORT (SQ) ---
INDICATION: neck mass. CREAT 0.49. COMPARISON: None CORRELATION: None. TECHNIQUE: Noncontrast spiral axial CT images were obtained through the neck with multiplanar reconstructions. This exam was performed according to our departmental dose-optimization program, which includes automated exposure control, adjustment of the mA and/or kV according to patient size and/or use of iterative reconstruction techniques. FINDINGS: Examination is not adequate for evaluation of intracranial contents. Nasopharynx oropharynx and hypopharynx are unremarkable. The salivary glands are unremarkable. The thyroid is homogeneous. There is no evidence of bulky adenopathy. The lung apices are clear. The upper mediastinum is unremarkable. Visualized bones are unremarkable. Maxillary and mandible are edentulous. IMPRESSION: Unremarkable evaluation of the neck. Despite reported history, a mass lesion is not identified
[2020-04-17] MEDS ORDERED: FENTANYL CITRATE INJ/PF 100 MCG/2 ML AMPUL IV ONE (02:48)
--- NOTE | 2020-04-17 03:54 | RADIOLOGY REPORT (SQ) ---
EXAM DESCRIPTION: US HEAD NECK SOFT TISSUE COMPLETED DATE/TME: 04/17/2020 01:38 CLINICAL HISTORY: 39 years, Female, mass on back of neck COMPARISON: CT, same day. CTA chest, 08/20/2018. LIMITATIONS: None. FINDINGS: Subcutaneous hypoechoic mildly heterogeneous mass measures 10.7 x 9.4 x 4.6 cm in an area marked as posterior neck midline, and may indicate a lipoma consistent with clinical history. No distinct capsule. No significant fluid component. No demonstrated vascularity. IMPRESSION: 10.7 cm subcutaneous mass of the subcutaneous posterior neck corresponds to an area of symptomatology. Differential diagnosis includes lipoma, chronic hematoma, phlegmon, or other neoplasm. Consider CT with the use of skin markers, ultrasound or gadolinium-enhanced MRI correlation/surveillance including at three months or sooner along side clinically warranted therapy.
[2020-04-17 04:11] VITALS: BP 134/71
== END 2020-04-17 04:30 | disposition home or self-care (01) ==
LOC: ER 19:56
DX: R22.1 Localized swelling, mass and lump, neck (principal); D17.1 Benign lipomatous neoplasm of skin and subcutaneous tissue of trunk; L02.425 Furuncle of right lower limb; S50.862A Insect bite (nonvenomous) of left forearm, initial encounter; S50.861A Insect bite (nonvenomous) of right forearm, initial encounter; W57.XXXA Bitten or stung by nonvenomous insect and other nonvenomous arthropods, initial encounter; R51 Headache; I10 Essential (primary) hypertension; E11.9 Type 2 diabetes mellitus without complications; F32.9 Major depressive disorder, single episode, unspecified; Z79.891 Long term (current) use of opiate analgesic; Z79.4 Long term (current) use of insulin; Z79.899 Other long term (current) drug therapy; Z79.2 Long term (current) use of antibiotics; Z98.890 Other specified postprocedural states; Z91.048 Other nonmedicinal substance allergy status; Z88.8 Allergy status to other drugs, medicaments and biological substances; Z91.040 Latex allergy status
CPT/HCPCS: 99283; 36415; 85025; 80053; 76536; 70491; J3010

== ENCOUNTER 2020-07-02 12:06 | Emergency (ER) | payer MEDICAID ==
--- NOTE | 2020-07-02 13:24 | ER Document Report ---
ED Medical Screen (RME) - General Chief Complaint: Pedal Edema Stated Complaint: LEG SWELLING Time Seen by Provider: 07/02/20 13:22 Primary Care Provider: EVELYN PAULA MD [Primary Care Provider] - Follow up as needed Mode of Arrival: Ambulatory Information source: Patient Notes: 39-year-old female presented to ED the swelling to both legs no shortness of breath. She states she was sent by her primary care to the emergency room to get checked out. He told her she would need blood work to check her kidneys and chest x-ray. Will order blood work and chest x-ray and have her reexamined. She is alert oriented respirations regular nonlabored at this time. I have greeted and performed a rapid initial assessment of this patient. A comprehensive ED assessment and evaluation of the patient, analysis of test results and completion of medical decision making process will be conducted by an additional ED providers. TRAVEL OUTSIDE OF THE [place] IN LAST 30 DAYS: No - Related Data Allergies/Adverse Reactions: adhesive tape [Adhesive Tape] Allergy (Severe, Verified 02/11/20 14:16) Generalized Itching haloperidol [From Haldol] Allergy (Severe, Verified 02/11/20 14:16) "Panic attack" prochlorperazine maleate [From Compazine] Allergy (Severe, Verified 02/11/20 14:16) Shortness of breath latex [Latex] Allergy (Intermediate, Verified 02/11/20 14:16) Hives morphine Adverse Reaction (Severe, Verified 02/11/20 14:16) ? metoclopramide HCl [From Reglan] Adverse Reaction (Intermediate, Verified 02/11/20 14:16) "spazed out" Past Medical History - Past Medical History Cardiac Medical History: Reports: Hx Hypercholesterolemia, Hx Hypertension Denies: Hx Coronary Artery Disease, Hx Heart Attack Pulmonary Medical History: Denies: Hx Asthma, Hx Bronchitis, Hx COPD, Hx Pneumonia Neurological Medical History: Reports: Hx Cerebrovascular Accident, Hx Migraine. Denies: Hx Seizures Endocrine Medical History: Reports: Hx Diabetes Mellitus Type 2 Renal/ Medical History: Denies: Hx Peritoneal Dialysis GI Medical History: Musculoskeltal Medical History: Reports Hx Arthritis - B/L WRIST Psychiatric Medical History: Reports: Hx Depression Infectious Medical History: Past Surgical History: Reports: Hx Abdominal Surgery - , Hx A ppendectomy, Hx Bowel Surgery, Hx Section, Hx Cholecystectomy, Hx Hysterectomy - tubes removed, novasure, Hx Orthopedic Surgery - carpal tunnel surgery, Hx Tonsillectomy, Hx Tubal Ligation. Denies: Hx Pacemaker - Immunizations Hx Diphtheria, Pertussis, Tetanus Vaccination: Yes Physical Exam - Vital signs Vitals: Temp Pulse Resp BP Pulse Ox 98.7 F 96 18 132/65 H 96 07/02/20 12:49 07/02/20 12:49 07/02/20 12:49 07/02/20 12:49 07/02/20 12:49 Course - Vital Signs Vital signs: Temp Pulse Resp BP Pulse Ox 98.7 F 96 18 132/65 H 96 07/02/20 12:49 07/02/20 12:49 07/02/20 12:49 07/02/20 12:49 07/02/20 12:49 Doctor's Discharge - Discharge Referrals: EVELYN PAULA MD [Primary Care Provider] - Follow up as needed
[2020-07-02 14:08] LABS: HEMATOCRIT 40.9 % (36.0-47.0); HEMOGLOBIN 13.6 g/dL (12.0-15.5); MEAN CORPUSCULAR HEMOGLOBIN 28.3 pg (27.0-33.4); MEAN CORPUSCULAR HGB CONC 33.4 g/dL (32.0-36.0); MEAN CORPUSCULAR VOLUME 85 fl (80-97); RED BLOOD COUNT 4.82 10^6/uL (3.72-5.28); RED CELL DISTRIBUTION WIDTH 14.4 % (11.5-14.0); WHITE BLOOD COUNT 8.2 10^3/uL (4.0-10.5)
--- NOTE | 2020-07-02 14:14 | RADIOLOGY REPORT (SQ) ---
EXAM DESCRIPTION: CHEST 2 VIEWS IMAGES COMPLETED DATE/TIME: 07/02/2020 2:06 pm REASON FOR STUDY: Pedal edema COMPARISON: 03/01/2020 EXAM PARAMETERS: NUMBER OF VIEWS: two views TECHNIQUE: Digital Frontal and Lateral radiographic views of the chest acquired. RADIATION DOSE: NA LIMITATIONS: none FINDINGS: LUNGS AND PLEURA: No opacities, masses or pneumothorax. No pleural effusion. MEDIASTINUM AND HILAR STRUCTURES: No masses or contour abnormalities. HEART AND VASCULAR STRUCTURES: Heart normal size. No evidence for failure. BONES: No acute findings. HARDWARE: None in the chest. OTHER: No other significant finding. IMPRESSION: NO ACUTE RADIOGRAPHIC FINDING IN THE CHEST. TECHNICAL DOCUMENTATION: JOB ID: [id number] [employer]- All Rights Reserved Reading location - IP/workstation name: [email or web address]
[2020-07-02 14:16] LABS: INTERNATIONAL RATION (INR) 1.03; PROTHROMBIN TIME 13.7 SEC (11.4-15.4)
[2020-07-02 14:17] LABS: PARTIAL THROMBOPLASTIN TIME 28.1 SEC (23.5-35.8)
[2020-07-02 14:27] LABS: ALBUMIN 4.2 g/dL (3.5-5.0); ALKALINE PHOSPHATASE 104 U/L (38-126); ANION GAP 8 (5-19); ASPARTATE AMINO TRANSFERASE 38 U/L (14-36); BILIRUBIN,TOTAL 0.4 mg/dL (0.2-1.3); BLOOD UREA NITROGEN 20 mg/dL (7-20); CALCIUM 9.7 mg/dL (8.4-10.2); CARBON DIOXIDE 30 mmol/L (22-30); CHLORIDE 98 mmol/L (98-107); GLUCOSE 260 mg/dL (75-110); POTASSIUM 4.2 mmol/L (3.6-5.0); TOTAL PROTEIN 7.2 g/dL (6.3-8.2)
[2020-07-02 14:34] LABS: ABSOLUTE LYMPHOCYTES# (MANUAL) 2.5 10^3/uL (0.5-4.7); ABSOLUTE MONOCYTES # (MANUAL) 0.1 10^3/uL (0.1-1.4); BASOPHILS % (MANUAL) 0 % (0-2); EOSINOPHILS % (MANUAL) 0 % (0-6); LYMPHOCYTES % (MANUAL) 31 % (13-45); MONOCYTES % (MANUAL) 1 % (3-13); SEGMENTED NEUTROPHILS % (MAN) 68 % (42-78); TOTAL CELLS COUNTED 100
[2020-07-02 14:37] LABS: PLATELET CLUMPS PRESENT; PLATELET COMMENT ADEQUATE; POLYCHROMASIA SLIGHT
[2020-07-02 14:38] LABS: ANISOCYTOSIS SLIGHT
[2020-07-02 14:39] LABS: PLATELET COUNT 139 10^3/uL (150-450)
[2020-07-02 15:01] LABS: APPEARANCE,URINE CLEAR; BILIRUBIN,URINE NEGATIVE (NEGATIVE); COLOR,URINE YELLOW; GLUCOSE, URINE NEGATIVE (NEGATIVE); KETONES,URINE NEGATIVE (NEGATIVE); LEUKOCYTE ESTERASE,URINE NEGATIVE (NEGATIVE); NITRITE,URINE NEGATIVE (NEGATIVE); PROTEIN,URINE NEGATIVE (NEGATIVE); UROBILINOGEN,URINE NEGATIVE mg/dL (<2.0)
[2020-07-02 17:54] VITALS: BP 132/59
--- NOTE | 2020-07-02 18:00 | ER Document Report ---
ED Extremity Problem, Lower - General Chief Complaint: Pedal Edema Stated Complaint: LEG SWELLING Time Seen by Provider: 07/02/20 13:22 Primary Care Provider: EVELYN PAULA MD [Primary Care Provider] - Follow up as needed Mode of Arrival: Ambulatory Information source: Patient Notes: 39-year-old female presented to ED for leg swelling to both legs with no shortn ess of breath. She states she was sent by primary care to get checked out. She states he told her that she would need blood work to check her kidney function and a chest x-ray. These were negative. I have discussed them with the patient. I have also discussed the fact that her blood sugar was a little high she needs to be careful with her blood sugar. I have given her a copy of her lab reports and her chest x-ray report for her to follow-up with her primary care doctor. TRAVEL OUTSIDE OF THE [place] IN LAST 30 DAYS: No - HPI Patient complains to provider of: Swelling Occurred: Other - Bilateral leg swelling Onset/Duration: Gradual Quality of pain: No pain Severity: None Pain Level: Denies Recent injury: No Associated symptoms: Other - Bilateral pedal edema Exacerbated by: Hanging down, Walking Relieved by: Nothing - Related Data Allergies/Adverse Reactions: adhesive tape [Adhesive Tape] Allergy (Severe, Verified 02/11/20 14:16) Generalized Itching haloperidol [From Haldol] Allergy (Severe, Verified 02/11/20 14:16) "Panic attack" prochlorperazine maleate [From Compazine] Allergy (Severe, Verified 02/11/20 14:16) Shortness of breath latex [Latex] Allergy (Intermediate, Verified 02/11/20 14:16) Hives morphine Adverse Reaction (Severe, Verified 02/11/20 14:16) ? metoclopramide HCl [From Reglan] Adverse Reaction (Intermediate, Verified 02/11/20 14:16) "spazed out" Past Medical History - General Information source: Patient - Social History Smoking Status: Never Smoker Frequency of alcohol use: None Drug Abuse: None Family History: None, Reviewed & Not Pertinent Patient has suicidal ideation: No Patient has homicidal ideation: No - Past Medical History Cardiac Medical History: Reports: Hx Hypercholesterolemia, Hx Hypertension Pulmonary Medical History: Reports: None EENT Medical History: Reports: None Neurological Medical History: Reports: Hx Cerebrovascular Accident, Hx Migraine Endocrine Medical History: Reports: Hx Diabetes Mellitus Type 2 Renal/ Medical History: Reports: None Malignancy Medical History: Reports: None GI Medical History: Reports: None Musculoskeletal Medical History: Reports Hx Arthritis - B/L WRIST Skin Medical History: Reports None Psychiatric Medical History: Reports: Hx Depression Traumatic Medical History: Reports: None Infectious Medical History: Reports: None Past Surgical History: Reports: Hx Abdominal Surgery - , Hx Appendectomy, Hx Bowel Surgery, Hx Section, Hx Cholecystectomy, Hx Hysterectomy - tubes removed, novasure, Hx Orthopedic Surgery - carpal tunnel surgery, Hx Tonsillectomy, Hx Tubal Ligation. Denies: Hx Pacemaker - Immunizations Immunizations up to date: Yes Hx Diphtheria, Pertussis, Tetanus Vaccination: Yes Review of Systems - Review of Systems Constitutional: No symptoms reported EENT: No symptoms reported Cardiovascular: No symptoms reported Respiratory: No symptoms reported Gastrointestinal: No symptoms reported Genitourinary: No symptoms reported Female Genitourinary: No symptoms reported Musculoskeletal: No symptoms reported Skin: No symptoms reported Hematologic/Lymphatic: No symptoms reported Neurological/Psychological: No symptoms reported -: Yes All other systems reviewed and negative Physical Exam - Vital signs Vitals: Temp Pulse Resp BP Pulse Ox 98.7 F 96 18 132/65 H 96 07/02/20 12:49 07/02/20 12:49 07/02/20 12:49 07/02/20 12:49 07/02/20 12:49 Interpretation: Normal - General General appearance: Appears well, Alert - HEENT Head: Normocephalic, Atraumatic Eyes: Normal Pupils: PERRL - Respiratory Respiratory status: No respiratory distress Chest status: Nontender Breath sounds: Normal Chest palpation: Normal - Cardiovascular Rhythm: Regular Heart sounds: Normal auscultation Murmur: No - Abdominal Inspection: Normal Distension: No distension Bowel sounds: Normal Tenderness: Nontender Organomegaly: No organomegaly - Back Back: Normal, Nontender - Extremities General upper extremity: Normal inspection, Nontender, Normal color, Normal ROM, Normal temperature General lower extremity: Normal inspection, Nontender, Normal color, Normal ROM, Normal temperature, Normal weight bearing. No: Kory's sign Calf: Other - Edema Ankle: Edema Foot: Edema - Neurological Neuro grossly intact: Yes Cognition: Normal Orientation: AAOx4 [place] Coma Scale Eye Opening: Spontaneous [place] Coma Scale Verbal: Oriented [place] Coma Scale Motor: Obeys Commands [place] Coma Scale Total: 15 Speech: Normal Motor strength normal: LUE, RUE, LLE, RLE Sensory: Normal - Psychological Associated symptoms: Normal affect, Normal mood - Skin Skin Temperature: Warm Skin Moisture: Dry Skin Color: Normal Course - Re-evaluation Re-evalutation: 07/02/20 18:04 Discussed labs and chest x-ray with patient labs and chest x-ray given to patient and patient will be discharged home. Patient verbalized understanding and agreement with treatment plan and patient has been discharged home. - Vital Signs Vital signs: Temp Pulse Resp BP Pulse Ox 98.3 F 91 20 132/59 H 97 07/02/20 18:00 07/02/20 18:00 07/02/20 18:00 07/02/20 18:00 07/02/20 18:00 - Laboratory Result Diagrams: 07/02/20 13:45 07/02/20 13:45 Laboratory results interpreted by me: 07/02/20 07/02/20 13:45 13:45 RDW 14.4 H Plt Count 139 L Monocytes % (Manual) 1 L Sodium 136.2 L Creatinine 0.45 L Glucose 260 H AST 38 H - Diagnostic Test Radiology reviewed: Image reviewed, Reports reviewed Discharge - Discharge Clinical Impression: Pedal edema Condition: Stable Disposition: HOME, SELF-CARE Additional Instructions: Edema, Peripheral You have swelling in your legs. This is called peripheral edema. It can be caused by "leaky capillaries," inflammation, disease of the leg veins, or excess salt and water in your body. Edema may be a sign of heart, kidney, or liver disease. A medical evaluation can determine if there is a serious underlying cause for your edema. Avoid prolonged standing. If you must sit for a long time, occasionally get up and walk around or elevate your legs. Support stockings can be helpful in limiting swelling. Often diuretic or water pills are used to remove excess salt and water from your body. Call the doctor or return if you develop increased swelling, pain, or redness, shortness of breath, chest pain, or any other significant change. I have given you a copy of all of your labs and chest x-ray. Please take these with you to your primary care doctor. Have him follow-up and we draw labs. Your kidney function is good and your chest x-ray does not show any enlargement to the heart. FOLLOW-UP CARE: If you have been referred to a physician for follow-up care, call the physicians office for an appointment as you were instructed or within the next two days. If you experience worsening or a significant change in your symptoms, notify the physician immediately or return to the Emergency Department at any time for re-evaluation. Forms: Elevated Blood Pressure Referrals: EVELYN PAULA MD [Primary Care Provider] - Follow up as needed
== END 2020-07-02 18:00 | disposition home or self-care (01) ==
LOC: ER 12:06
DX: R60.0 Localized edema (principal); E11.65 Type 2 diabetes mellitus with hyperglycemia; I10 Essential (primary) hypertension; Z91.048 Other nonmedicinal substance allergy status; Z88.8 Allergy status to other drugs, medicaments and biological substances; Z91.040 Latex allergy status
CPT/HCPCS: 36415; 71046; 80053; 81001; 84703; 85025; 85610; 85730; 99283

== ENCOUNTER 2020-07-16 07:55 | Emergency (ER) | payer MEDICAID ==
--- NOTE | 2020-07-16 09:05 | ER Document Report ---
ED General - General Stated Complaint: BLOOD SUGAR ISSUES Time Seen by Provider: 07/16/20 08:04 Primary Care Provider: MAGDI LAIRD APRN, EQUIPMENT SERVICES ASSOCIATE-C [Primary Care Provider] - Follow up as needed Mode of Arrival: Ambulatory Information source: Patient, Relative Notes: Patient is a 39-year-old female brought into the emergency room by her complaining of hypoglycemia early this morning. states that around 6:30 AM this morning patient woke her up saying that she needed "some milk". They checked her blood sugar was 54 on her Accu-Chek machine. She drank a large glass of milk then she had a sweet Amber cake and some sugar pills and a coke. She kept trying to go to sleep so the decided to bring her in and have her evaluated so she does not go into a diabetic coma. Patient denies shortness of breath but states she had a slight amount of chest pain earlier today. On arrival to the emergency room Accu-Chek upfront showed a blood glucose of 333. TRAVEL OUTSIDE OF THE [place] IN LAST 30 DAYS: No - HPI Onset: This morning Onset/Duration: Sudden Quality of pain: No pain Severity: Moderate Pain Level: 3 Associated symptoms: Weakness. denies: Nausea, Vomiting Exacerbated by: Denies Relieved by: Denies Similar symptoms previously: Yes Recently seen / treated by doctor: No - Related Data Allergies/Adverse Reactions: adhesive tape [Adhesive Tape] Allergy (Severe, Verified 07/16/20 09:05) Generalized Itching haloperidol [From Haldol] Allergy (Severe, Verified 07/16/20 09:05) "Panic attack" prochlorperazine maleate [From Compazine] Allergy (Severe, Verified 07/16/20 09:05) Shortness of breath latex [Latex] Allergy (Intermediate, Verified 07/16/20 09:05) Hives morphine Adverse Reaction (Severe, Verified 07/16/20 09:05) ? metoclopramide HCl [From Reglan] Adverse Reaction (Intermediate, Verified 07/16/20 09:05) "spazed out" Past Medical History - General Information source: Patient, Relative - Social History Smoking Status: Unknown if Ever Smoked - You have been seen today in the Emergency Department for your concerns. At this time there is no obvious cause for your concerns. You may have received labs or imaging which you can receive copies of from medical records. If your symptoms do worsen or new symptoms occur you must return immediately for further care. Either way you must follow up with the primary care physician for further evaluation Frequency of alcohol use: None Drug Abuse: None Lives with: Family Family History: None, Reviewed & Not Pertinent - Past Medical History Cardiac Medical History: Reports: Hx Hypercholesterolemia, Hx Hypertension Denies: Hx Coronary Artery Disease, Hx Heart Attack Pulmonary Medical History: Denies: Hx Asthma, Hx Bronchitis, Hx COPD, Hx Pneumonia Neurological Medical History: Reports: Hx Cerebrovascular Accident, Hx Migraine. Denies: Hx Seizures Endocrine Medical History: Reports: Hx Diabetes Mellitus Type 2 Renal/ Medical History: Denies: Hx Peritoneal Dialysis GI Medical History: Musculoskeletal Medical History: Reports Hx Arthritis - B/L WRIST Psychiatric Medical History: Reports: Hx Depression Infectious Medical History: Past Surgical History: Reports: Hx Abdominal Surgery - , Hx Appendectomy, Hx Bowel Surgery, Hx Section, Hx Cholecystectomy, Hx Hysterectomy - tubes removed, novasure, Hx Orthopedic Surgery - carpal tunnel surgery, Hx Tonsillectomy, Hx Tubal Ligation. Denies: Hx Pacemaker - Immunizations Immunizations up to date: Yes Hx Diphtheria, Pertussis, Tetanus Vaccination: Yes Review of Systems - Review of Systems Constitutional: No symptoms reported EENT: No symptoms reported Cardiovascular: No symptoms reported Respiratory: No symptoms reported Gastrointestinal: No symptoms reported. denies: Nausea, Vomiting Genitourinary: No symptoms reported Female Genitourinary: No symptoms reported Musculoskeletal: No symptoms reported Skin: No symptoms reported Hematologic/Lymphatic: No symptoms reported Neurological/Psychological: See HPI, Weakness Physical Exam - Vital signs Vitals: Temp Pulse Resp BP Pulse Ox 98.2 F 99 18 148/87 H 100 07/16/20 08:00 07/16/20 08:00 07/16/20 08:00 07/16/20 08:00 07/16/20 08:00 Interpretation: Hypertensive - Notes Notes: PHYSICAL EXAMINATION: GENERAL: Patient is a well-nourished well-developed 39-year-old female no apparent distress on examination this morning. Patient however does appear somewhat groggy. She responds to voice commands well. HEAD: Atraumatic, normocephalic. EYES: Pupils equal round and reactive to light, extraocular movements intact, conjunctiva are normal. ENT: Nares patent, oropharynx clear without exudates. Moist mucous membranes. NECK: Normal range of motion, supple without lymphadenopathy LUNGS: Breath sounds clear to auscultation bilaterally and equal. No wheezes rales or rhonchi. HEART: Regular rate and rhythm without murmurs ABDOMEN: Soft, nontender, nondistended abdomen. No guarding, no rebound. No masses appreciated. Female : deferred Musculoskeletal: Normal range of motion, no pitting or edema. No cyanosis. NEUROLOGICAL: Normal speech, Normal sensory, motor exams the patient's neurologic evaluation is normal she does appear somewhat sleepy. SKIN: Warm, Dry, normal turgor, no rashes or lesions noted. Course - Re-evaluation Re-evalutation: 07/16/20 10:29 Patient was found to have a urinary tract infection. She responded well while in ER with no major interventions. She is currently awake alert and oriented. Blood sugar is stable at 290. At this time she is ready to be discharged home we will give her a shot of Rocephin and she is to monitor her sugars more edilberto sely and take the antibiotics until completion. Patient's initial presentation was for hyperglycemia at 333 in triage however as stated reported and the states her sugar was originally 54 at home prior to coming in. 07/16/20 10:31 - Vital Signs Vital signs: Temp Pulse Resp BP Pulse Ox 98.2 F 99 13 154/87 H 98 07/16/20 08:00 07/16/20 08:00 07/16/20 10:01 07/16/20 10:01 07/16/20 10:01 - Laboratory Result Diagrams: 07/16/20 09:10 07/16/20 09:10 Laboratory results interpreted by me: 07/16/20 07/16/20 07/16/20 08:01 09:10 09:10 RDW 14.8 H Plt Count 133 L Sodium 136.0 L Glucose 278 H POC Glucose 333 H AST 37 H Urine Glucose (UA) Urine Nitrite Ur Leukocyte Esterase 07/16/20 09:20 RDW Plt Count Sodium Glucose POC Glucose AST Urine Glucose (UA) >=500 H Urine Nitrite POSITIVE H Ur Leukocyte Esterase TRACE H Discharge - Discharge Clinical Impression: Hypoglycemia UTI (urinary tract infection) Qualifiers: Urinary tract infection type: site unspecified Hematuria presence: without hematuria Qualified Code(s): N39.0 - Urinary tract infection, site not specified Condition: Stable Disposition: HOME, SELF-CARE Instructions: Cephalexin ([facility]), Hypoglycemia ([facility]), Urinary Anesthetic Agent ([facility]), Urinary Tract Infection ([facility]) Additional Instructions: Original presentation was for hyperglycemia however given the history of being at home and having a blood sugar of 54 and feeling tired he corrected herself appropriately by taking the milk and orange juice and eating. Since her blood sugars are stabilized below 300 at this point feels similar to go home you also have been found to have a urinary tract infection we are treating you with antibiotics. Remember infections can cause your blood sugars to be really variable so monitor them closely. Should you have any concerns or problems return to ER for reevaluation. Prescriptions: Fluconazole [Diflucan] 150 mg PO ONCE #1 tablet Cephalexin Monohydrate [Keflex 500 mg Capsule] 500 mg PO BID 5 Days #20 capsule Phenazopyridine HCl [Pyridium 200 mg Tablet] 200 mg PO TID #15 tablet Forms: Elevated Blood Pressure Referrals: MAGDI LAIRD APRN, EQUIPMENT SERVICES ASSOCIATE-C [Primary Care Provider] - Follow up as needed
--- NOTE | 2020-07-16 09:21 | RADIOLOGY REPORT (SQ) ---
EXAM DESCRIPTION: CHEST SINGLE VIEW IMAGES COMPLETED DATE/TIME: 07/16/2020 9:08 am REASON FOR STUDY: weakness COMPARISON: 07/02/2020 EXAM PARAMETERS: NUMBER OF VIEWS: One view. TECHNIQUE: Single frontal radiographic view of the chest acquired. RADIATION DOSE: NA LIMITATIONS: None. FINDINGS: LUNGS AND PLEURA: No opacities, masses or pneumothorax. No pleural effusion. MEDIASTINUM AND HILAR STRUCTURES: No masses. Contour normal. HEART AND VASCULAR STRUCTURES: Heart normal in size. Normal vasculature. BONES: No acute findings. HARDWARE: None in the chest. OTHER: No other significant finding. IMPRESSION: NO ACUTE RADIOGRAPHIC FINDING IN THE CHEST. TECHNICAL DOCUMENTATION: JOB ID: [id number] 2010 [employer]- All Rights Reserved Reading location - IP/workstation name: [email or web address]
[2020-07-16 09:28] LABS: ABSOLUTE EOSINOPHILS # (AUTO) 0.1 10^3/uL (0.0-0.6); ABSOLUTE LYMPHOCYTES (AUTO) 1.7 10^3/uL (0.5-4.7); ABSOLUTE MONOCYTES (AUTO) 0.4 10^3/uL (0.1-1.4); ABSOLUTE NEUT (AUTO) 4.4 10^3/uL (1.7-8.2); BASOPHILS % (AUTO) 0.7 % (0-2); EOSINOPHILS % (AUTO) 1.7 % (0-6); HEMATOCRIT 41.7 % (36.0-47.0); HEMOGLOBIN 13.7 g/dL (12.0-15.5); LYMPHOCYTES % (AUTO) 25.2 % (13-45); MEAN CORPUSCULAR HEMOGLOBIN 28.2 pg (27.0-33.4); MEAN CORPUSCULAR HGB CONC 32.8 g/dL (32.0-36.0); MEAN CORPUSCULAR VOLUME 86 fl (80-97); MONOCYTES % (AUTO) 5.9 % (3-13); PLATELET COUNT 133 10^3/uL (150-450); RED BLOOD COUNT 4.84 10^6/uL (3.72-5.28); RED CELL DISTRIBUTION WIDTH 14.8 % (11.5-14.0); SEGMENTED NEUTROPHILS % (AUTO) 66.5 % (42-78); TOTAL CELLS COUNTED % (AUTO) 100 %; WHITE BLOOD COUNT 6.6 10^3/uL (4.0-10.5)
[2020-07-16 09:49] LABS: APPEARANCE,URINE SLIGHTLY-CLOUDY; BILIRUBIN,URINE NEGATIVE (NEGATIVE); COLOR,URINE YELLOW; GLUCOSE, URINE >=500 mg/dL (NEGATIVE); KETONES,URINE NEGATIVE (NEGATIVE); LEUKOCYTE ESTERASE,URINE TRACE (NEGATIVE); NITRITE,URINE POSITIVE (NEGATIVE); PROTEIN,URINE NEGATIVE (NEGATIVE); URINE SPECIFIC GRAVITY 1.021; UROBILINOGEN,URINE NEGATIVE mg/dL (<2.0)
[2020-07-16 09:50] LABS: ALBUMIN 4.1 g/dL (3.5-5.0); ALKALINE PHOSPHATASE 104 U/L (38-126); ANION GAP 11 (5-19); ASPARTATE AMINO TRANSFERASE 37 U/L (14-36); BILIRUBIN,TOTAL 0.3 mg/dL (0.2-1.3); BLOOD UREA NITROGEN 14 mg/dL (7-20); CALCIUM 9.5 mg/dL (8.4-10.2); CARBON DIOXIDE 26 mmol/L (22-30); CHLORIDE 99 mmol/L (98-107); GLUCOSE 278 mg/dL (75-110); POTASSIUM 4.6 mmol/L (3.6-5.0); TOTAL PROTEIN 7.1 g/dL (6.3-8.2)
[2020-07-16 10:02] LABS: URINE AMPHETAMINES SCREEN NEGATIVE; URINE BENZODIAZEPINES SCREEN NEGATIVE; URINE COCAINE SCREEN NEGATIVE; URINE MARIJUANA (THC) SCREEN NEGATIVE; URINE METHADONE SCREEN NEGATIVE; URINE PHENCYCLIDINE SCREEN NEGATIVE
[2020-07-16 10:04] LABS: URINE BARBITURATES SCREEN UNCONFIRMED POSITIVE
[2020-07-16] MEDS ORDERED: CEFTRIAXONE INJ 1000 MG VIAL IM ONE (10:15)
[2020-07-16] MEDS ORDERED: LIDOCAINE 1% INJ-PF (10 MG/ML) 30 ML SDV ONE (10:25)
[2020-07-16 11:15] VITALS: BP 154/87
--- NOTE | 2020-07-17 09:40 | EKG REPORT ---
SEVERITY:- BORDERLINE ECG - SINUS RHYTHM LVH BY VOLTAGE : Confirmed by: Edmundo Morgan 17-Jul-2020 09:38:51
== END 2020-07-16 11:16 | disposition home or self-care (01) ==
LOC: ER 07:55
DX: E11.649 Type 2 diabetes mellitus with hypoglycemia without coma (principal); E11.65 Type 2 diabetes mellitus with hyperglycemia; N39.0 Urinary tract infection, site not specified; R07.9 Chest pain, unspecified; R53.1 Weakness; I10 Essential (primary) hypertension; Z91.048 Other nonmedicinal substance allergy status; Z88.8 Allergy status to other drugs, medicaments and biological substances; Z91.040 Latex allergy status
CPT/HCPCS: 93005; 99283; 36415; 82962; 85025; 81025; 80053; 81001; 84484; 80307; 71045; 93010; J3490; J0696

== ENCOUNTER 2020-08-26 20:19 | Emergency (ER) | payer MEDICAID ==
[2020-08-26] MEDS ORDERED: METHYLPREDNISOLONE INJ 125 MG/2 ML SDV IV ONE (21:36)
[2020-08-26] MEDS ORDERED: DIPHENHYDRAMINE HCL 50 MG/ML VIAL IV ONE (21:36)
[2020-08-26] MEDS ORDERED: FAMOTIDINE INJ/PF 20 MG/2 ML SDV IV ONE (21:36)
--- NOTE | 2020-08-26 21:44 | ER Document Report ---
ED Medical Screen (RME) - General Chief Complaint: Back Pain Stated Complaint: POSSIBLE BURN Time Seen by Provider: 08/26/20 21:19 Primary Care Provider: MAGDI LAIRD APRN, HISTORIOGRAPHY PROFESSOR-C [Primary Care Provider] - Follow up as needed TRAVEL OUTSIDE OF THE [place] IN LAST 30 DAYS: No - HPI Notes: 08/26/20 21:44 39-year-old female to the emergency department with back pain that radiates through her chest wall that started suddenly this evening. She states it started about 15 minutes after applying [place] balm to her back. Her daughter applied this. She states that she has applied this several times in the past and never had any sort of reaction to it. She states that it had been on for about 50 minutes when she sat up and had immediate piercing pain to her right scapular region coming through her breast. She denies any shortness of breath. She states it is very tender. There is no redness to the back or any hives. She denies any shortness of breath or tongue swelling. She denies any lip swelling. She is not taking anything else prior to arrival. They attempted to wipe the [place] balm off but that did not improve her symptoms. In triage she describes this piercing shooting pain through her back around her right axilla through her chest. She has point tenderness over her tattoo on her right back and she states when I press it it runs through her to the front. I performed a brief medical screening exam on the patient determined that the patient needs further evaluation and management by main side provider. I have placed initial orders to help expedite care. - Related Data Allergies/Adverse Reactions: adhesive tape [Adhesive Tape] Allergy (Severe, Verified 07/16/20 09:05) Generalized Itching haloperidol [From Haldol] Allergy (Severe, Verified 07/16/20 09:05) "Panic attack" prochlorperazine maleate [From Compazine] Allergy (Severe, Verified 07/16/20 09:05) Shortness of breath latex [Latex] Allergy (Intermediate, Verified 07/16/20 09:05) Hives lorazepam [From Ativan] Allergy (Mild, Verified 08/26/20 21:29) morphine Adverse Reaction (Severe, Verified 07/16/20 09:05) ? metoclopramide HCl [From Reglan] Adverse Reaction (Intermediate, Verified 07/16/20 09:05) "spazed out" Past Medical History - Social History Chew tobacco use (# tins/day): No Frequency of alcohol use: None Drug Abuse: None - Past Medical History Cardiac Medical History: Reports: Hx Hypercholesterolemia, Hx Hypertension Denies: Hx Coronary Artery Disease, Hx Heart Attack Pulmonary Medical History: Denies: Hx Asthma, Hx Bronchitis, Hx COPD, Hx Pneumonia Neurological Medical History: Reports: Hx Cerebrovascular Accident, Hx Migraine. Denies: Hx Seizures Endocrine Medical History: Reports: Hx Diabetes Mellitus Type 2 Renal/ Medical History: Denies: Hx Peritoneal Dialysis GI Medical History: Musculoskeltal Medical History: Reports Hx Arthritis - B/L WRIST Psychiatric Medical History: Reports: Hx Depression Infectious Medical History: Past Surgical History: Reports: Hx Abdominal Surgery - , Hx Appendectomy, Hx Bowel Surgery, Hx Section, Hx Cholecystectomy, Hx Hysterectomy - tubes removed, novasure, Hx Orthopedic Surgery - carpal tunnel surgery, Hx Tonsillectomy, Hx Tubal Ligation. Denies: Hx Pacemaker - Immunizations Immunizations up to date: Yes Hx Diphtheria, Pertussis, Tetanus Vaccination: Yes Physical Exam - Vital signs Vitals: Temp Pulse Resp BP Pulse Ox 98.4 F 92 20 169/102 H 97 08/26/20 21:30 08/26/20 21:30 08/26/20 21:30 08/26/20 21:30 08/26/20 21:30 Course - Vital Signs Vital signs: Temp Pulse Resp BP Pulse Ox 98.4 F 92 20 169/102 H 97 08/26/20 21:30 08/26/20 21:30 08/26/20 21:30 08/26/20 21:30 08/26/20 21:30 Doctor's Discharge - Discharge Referrals: MAGDI LAIRD, FOOD SERVICE ORDER CLERK, HISTORIOGRAPHY PROFESSOR-C [Primary Care Provider] - Follow up as needed
[2020-08-26] MEDS ORDERED: FAMOTIDINE 20 MG TABLET PO ONE (22:34)
[2020-08-26] MEDS ORDERED: METHYLPREDNISOLONE INJ 125 MG/2 ML SDV IM ONE (22:34)
[2020-08-26] MEDS ORDERED: DIPHENHYDRAMINE HCL 50 MG/ML VIAL IM ONE (22:34)
--- NOTE | 2020-08-26 22:55 | RADIOLOGY REPORT (SQ) ---
EXAM DESCRIPTION: XR CHEST 1 VIEW COMPLETED DATE/TME: 08/26/2020 21:35 CLINICAL HISTORY: 39 years, Female, back pain radiating into chest COMPARISON: 07/16/2020 chest NUMBER OF VIEWS: 1 TECHNIQUE: Portable chest LIMITATIONS: None. FINDINGS: Heart size normal. Lungs clear. No pneumothorax IMPRESSION: Negative chest copyright 2011 [facility] [employer]- All Rights Reserved
[2020-08-26 23:11] LABS: ABSOLUTE BASOPHILS # (AUTO) 0.1 10^3/uL (0.0-0.2); ABSOLUTE EOSINOPHILS # (AUTO) 0.2 10^3/uL (0.0-0.6); ABSOLUTE LYMPHOCYTES (AUTO) 2.6 10^3/uL (0.5-4.7); ABSOLUTE MONOCYTES (AUTO) 0.5 10^3/uL (0.1-1.4); ABSOLUTE NEUT (AUTO) 6.2 10^3/uL (1.7-8.2); BASOPHILS % (AUTO) 0.7 % (0-2); EOSINOPHILS % (AUTO) 2.2 % (0-6); HEMATOCRIT 41.2 % (36.0-47.0); HEMOGLOBIN 14.1 g/dL (12.0-15.5); LYMPHOCYTES % (AUTO) 27.5 % (13-45); MEAN CORPUSCULAR HEMOGLOBIN 28.4 pg (27.0-33.4); MEAN CORPUSCULAR HGB CONC 34.2 g/dL (32.0-36.0); MEAN CORPUSCULAR VOLUME 83 fl (80-97); MONOCYTES % (AUTO) 5.2 % (3-13); PLATELET COUNT 157 10^3/uL (150-450); RED BLOOD COUNT 4.97 10^6/uL (3.72-5.28); RED CELL DISTRIBUTION WIDTH 14.4 % (11.5-14.0); SEGMENTED NEUTROPHILS % (AUTO) 64.4 % (42-78); TOTAL CELLS COUNTED % (AUTO) 100 %; WHITE BLOOD COUNT 9.6 10^3/uL (4.0-10.5)
[2020-08-26 23:28] LABS: ALBUMIN 4.2 g/dL (3.5-5.0); ALKALINE PHOSPHATASE 128 U/L (38-126); ANION GAP 11 (5-19); ASPARTATE AMINO TRANSFERASE 71 U/L (14-36); BILIRUBIN,DIRECT 0.2 mg/dL (0.0-0.4); BILIRUBIN,TOTAL 0.5 mg/dL (0.2-1.3); BLOOD UREA NITROGEN 19 mg/dL (7-20); CALCIUM 9.7 mg/dL (8.4-10.2); CARBON DIOXIDE 25 mmol/L (22-30); CHLORIDE 100 mmol/L (98-107); GLUCOSE 295 mg/dL (75-110); TOTAL PROTEIN 6.9 g/dL (6.3-8.2)
[2020-08-27] MEDS ORDERED: PROMETHAZINE HCL INJ 50 MG/1 ML VIAL IM PRN (01:17)
[2020-08-27] MEDS ORDERED: HYDROMORPHONE HCL INJ/PF 2 MG/ML AMPULE IM ONE (01:17)
--- NOTE | 2020-08-27 01:22 | ER Document Report ---
ED General Pain - General Chief Complaint: Back Pain Stated Complaint: POSSIBLE BURN Time Seen by Provider: 08/26/20 21:19 Primary Care Provider: MAGDI LAIRD APRN, TELEPRINTER-C [Primary Care Provider] - Follow up as needed TRAVEL OUTSIDE OF THE [place] IN LAST 30 DAYS: No - HPI Patient complains to provider of: back pain Notes: 39 y/o presenting to ED for evaluation of upper back pain after having tiger balm applied to an open ingrown hair she reports intense burning and pain at that area ever since they attempted to clean the area but report pain has continued to clean the area, they then tried applying rubbing alcohol which worsened the pain no anterior chest pain or sob she is on perc 20's and phenergan 75 daily for chronic pain she was seen by kwasi in triage and given meds for allergic rxn (pepcid, steroid, benadryl) - Related Data Allergies/Adverse Reactions: adhesive tape [Adhesive Tape] Allergy (Severe, Verified 07/16/20 09:05) Generalized Itching haloperidol [From Haldol] Allergy (Severe, Verified 07/16/20 09:05) "Panic attack" prochlorperazine maleate [From Compazine] Allergy (Severe, Verified 07/16/20 09:05) Shortness of breath latex [Latex] Allergy (Intermediate, Verified 07/16/20 09:05) Hives lorazepam [From Ativan] Allergy (Mild, Verified 08/26/20 21:29) morphine Adverse Reaction (Severe, Verified 07/16/20 09:05) ? metoclopramide HCl [From Reglan] Adverse Reaction (Intermediate, Verified 07/16/20 09:05) "spazed out" Past Medical History - Social History Smoking Status: Former Smoker Chew tobacco use (# tins/day): No Frequency of alcohol use: None Drug Abuse: None Family History: None, Reviewed & Not Pertinent Patient has homicidal ideation: No - Past Medical History Cardiac Medical History: Reports: Hx Hypercholesterolemia, Hx Hypertension Denies: Hx Coronary Artery Disease, Hx Heart Attack Pulmonary Medical History: Denies: Hx Asthma, Hx Bronchitis, Hx COPD, Hx Pneumonia Neurological Medical History: Reports: Hx Cerebrovascular Accident, Hx Migraine. Denies: Hx Seizures Endocrine Medical History: Reports: Hx Diabetes Mellitus Type 2 Renal/ Medical History: Denies: Hx Peritoneal Dialysis GI Medical History: Musculoskeletal Medical History: Reports Hx Arthritis - B/L WRIST Psychiatric Medical History: Reports: Hx Depression Infectious Medical History: Past Surgical History: Reports: Hx Abdominal Surgery - , Hx Appendectomy, Hx Bowel Surgery, Hx Section, Hx Cholecystectomy, Hx Hysterectomy - tubes removed, novasure, Hx Orthopedic Surgery - carpal tunnel surgery, Hx Tonsillectomy, Hx Tubal Ligation. Denies: Hx Pacemaker - Immunizations Immunizations up to date: Yes Hx Diphtheria, Pertussis, Tetanus Vaccination: Yes Review of Systems - Review of Systems Constitutional: No symptoms reported EENT: No symptoms reported Cardiovascular: No symptoms reported Respiratory: No symptoms reported Gastrointestinal: No symptoms reported Genitourinary: No symptoms reported Female Genitourinary: No symptoms reported Musculoskeletal: Back pain Skin: No symptoms reported Hematologic/Lymphatic: No symptoms reported Neurological/Psychological: No symptoms reported Physical Exam - Vital signs Vitals: Temp Pulse Resp BP Pulse Ox 98.4 F 92 20 169/102 H 97 08/26/20 21:30 08/26/20 21:30 08/26/20 21:30 08/26/20 21:30 08/26/20 21:30 Interpretation: Normal - General General appearance: Appears well, Alert - HEENT Head: Normocephalic, Atraumatic Eyes: Normal Pupils: PERRL - Respiratory Respiratory status: No respiratory distress Chest status: Nontender Breath sounds: Normal Chest palpation: Normal - Cardiovascular Rhythm: Regular Heart sounds: Normal auscultation Murmur: No - Abdominal Inspection: Normal Distension: No distension Bowel sounds: Normal Tenderness: Nontender Organomegaly: No organomegaly - Back Back: Normal, Nontender - Extremities General upper extremity: Normal inspection, Nontender, Normal color, Normal ROM, Normal temperature General lower extremity: Normal inspection, Nontender, Normal color, Normal ROM, Normal temperature, Normal weight bearing. No: Kory's sign - Neurological Neuro grossly intact: Yes Cognition: Normal Orientation: AAOx4 Harrison Coma Scale Eye Opening: Spontaneous Harrison Coma Scale Verbal: Oriented Harrison Coma Scale Motor: Obeys Commands Harrison Coma Scale Total: 15 Speech: Normal Motor strength normal: LUE, RUE, LLE, RLE Sensory: Normal - Psychological Associated symptoms: Normal affect, Normal mood - Skin Skin Temperature: Warm Skin Moisture: Dry Skin Color: Normal Notes: area of back pain is at an area of ingrown hair appearing lesion with small open area. no induration or fluctuation. no surrounding erythema Course - Re-evaluation Re-evalutation: 08/27/20 01:20 this is likely a reaction of the tiger balm being applied to an open wound/lesion we will treat her pain here and have her go home, shower and stop applying anything else other than vaseline based neosporin to the area until it closes over recommend pcp follow up as outpt as she is a chronic pain patient, she will be receiving a large dose of pain medication in the ED for a relatively minor complaint. her daughter is here w/ her and driving home - Vital Signs Vital signs: Temp Pulse Resp BP Pulse Ox 97.7 F 90 20 125/61 96 08/27/20 00:24 08/27/20 00:24 08/26/20 21:30 08/27/20 00:24 08/27/20 00:24 - Laboratory Result Diagrams: 08/26/20 22:45 08/26/20 22:45 Laboratory results interpreted by me: 08/26/20 08/26/20 22:45 22:45 RDW 14.4 H Sodium 135.5 L Glucose 295 H AST 71 H ALT 43 H Alkaline Phosphatase 128 H - Diagnostic Test Radiology reviewed: Reports reviewed - EKG Interpretation by Vt EKG shows normal: Sinus rhythm Rate: Normal Rhythm: NSR Additional EKG results interpreted by me: 08/27/20 01:[address] segment changes or T wave changes Discharge - Discharge Clinical Impression: Skin irritation due to topical agent Back pain Qualifiers: Back pain location: thoracic back pain Chronicity: acute Back pain laterality: left Qualified Code(s): M54.6 - Pain in thoracic spine Condition: Stable Disposition: HOME, SELF-CARE Instructions: Soap Cleansing ([facility]), Pain Medication Injection ([facility]) Additional Instructions: please follow up with primary care provider as an outpatient return to the ED with worsening symptoms or concerns Referrals: MAGDI LAIRD APRN, TELEPRINTER-C [Primary Care Provider] - Follow up as needed
[2020-08-27] MEDS ORDERED: PROMETHAZINE HCL INJ 25 MG/1 ML VIAL ONE (01:30)
[2020-08-27 01:53] VITALS: BP 119/50
--- NOTE | 2020-08-27 07:42 | EKG REPORT ---
SEVERITY:- ABNORMAL ECG - SINUS RHYTHM LVH WITH SECONDARY REPOLARIZATION ABNORMALITY : Confirmed by: Anirudh Leon MD 27-Aug-2020 07:41:50
== END 2020-08-27 01:55 | disposition home or self-care (01) ==
LOC: ER 20:19
DX: L98.9 Disorder of the skin and subcutaneous tissue, unspecified (principal); T49.95XA Adverse effect of unspecified topical agent, initial encounter; M54.6 Pain in thoracic spine; L73.1 Pseudofolliculitis barbae; I10 Essential (primary) hypertension; E11.9 Type 2 diabetes mellitus without complications; G89.29 Other chronic pain; Z79.899 Other long term (current) drug therapy; Z79.891 Long term (current) use of opiate analgesic; Z91.048 Other nonmedicinal substance allergy status; Z88.8 Allergy status to other drugs, medicaments and biological substances; Z91.040 Latex allergy status; Z87.891 Personal history of nicotine dependence
CPT/HCPCS: 93005; 99285; 96372; 96374; 96375; 36415; 85025; 80053; 84484; 71045; 93010; J3490; J1200; J2930; J1170; J2550

== ENCOUNTER 2020-09-24 15:48 | Emergency (ER) | payer MEDICAID ==
[2020-09-24] MEDS ORDERED: EPINEPHRINE INJ 1 MG/10 ML DISP.SYRIN INJ ONE (15:57)
[2020-09-24] MEDS ORDERED: METHYLPREDNISOLONE INJ 125 MG/2 ML SDV IV ONE (15:57)
[2020-09-24] MEDS ORDERED: DIPHENHYDRAMINE HCL 50 MG/ML VIAL IV ONE (15:58)
[2020-09-24] MEDS ORDERED: FAMOTIDINE INJ/PF 20 MG/2 ML SDV IV ONE (15:58)
--- NOTE | 2020-09-24 15:59 | ER Document Report ---
ED Allergic Reaction - General Stated Complaint: POSSIBLE ALLERGIC REACTION Time Seen by Provider: 09/24/20 15:54 Primary Care Provider: MAGDI LAIRD APRN, FISH RECEIVER-C [NO LOCAL MD] - Follow up as needed Notes: CHIEF COMPLAINT: Allergic reaction HPI: 40-year-old obese female with history of type 2 diabetes, hypertension presenting for allergic reaction with throat closing. Patient states she ate dragon fruit and did not realize she would be allergic to that, states she has an allergy to cantaloupe. States that she ate this approximately an hour ago then began to feel her throat closing broke out in an itchy rash. She did take 2 Benadryl at home and then came to the hospital. ROS: See HPI - all other systems were reviewed and are otherwise negative Constitutional: no fever Eyes: no drainage, no blurred vision ENT: no runny nose, + skin sore throat Cardiovascular: no chest pain Resp: no SOB, no cough GI: no vomiting, no diarrhea, no abdominal pain : no dysuria Integumentary: no rash Allergy: + hives Musculoskeletal: no extremity pain or swelling Neurological: no numbness/tingling, no weakness MEDICATIONS: I agree with the patient medications as charted by the RN. ALLERGIES: I agree with the allergies as charted by the RN. PAST MEDICAL HISTORY/PAST SURGICAL HISTORY: Reviewed and agree as charted by RN. SOCIAL HISTORY: Reviewed and agree as charted by RN. FAMILY HISTORY: No significant familial comorbid conditions directly related to patient complaint EXAM: Reviewed vital signs as charted by RN. CONSTITUTIONAL: Alert and oriented and responds appropriately to questions. Well-appearing; well-nourished HEAD: Normocephalic; atraumatic EYES: PERRL; Conjunctivae clear, sclerae non-icteric ENT: normal nose; no rhinorrhea; moist mucous membranes; pharynx without lesions noted, no uvula edema or deviation, no tonsillar hypertrophy, phonation normal. No angioedema NECK: Supple without meningismus; non-tender; no cervical lymphadenopathy, no masses. No stridor CARD: RRR; no murmurs, no clicks, no rubs, no gallops; symmetric distal pulses RESP: Normal chest excursion without splinting but is mildly tachypnea; breath sounds clear and equal bilaterally; no wheezes, no rhonchi, no rales, pulse oximetry 90% on room air not hypoxic ABD/GI: Normal bowel sounds; non-distended; soft, non-tender, no rebound, no guarding; no palpable organomegaly or masses. BACK: The back appears normal and is non-tender to palpation, there is no CVA tenderness EXT: Normal ROM in all joints; non-tender to palpation; no cyanosis, no effusions, no edema SKIN: Normal color for age and race; warm; dry; good turgor; raised erythematous rash that is somewhat confluent over the upper arms and back NEURO: Moves all extremities equally; Motor and sensory function intact PSYCH: The patient's mood and manner are appropriate. Grooming and personal hygiene are appropriate. MDM: 40-year-old female presenting for allergic reaction. She has no stridor and phonation appears normal but she is slightly tachypneic. There is no wheezing noted, given the possibility of upper airway constriction will give EpiPen, monitor, steroids, antihistamines and observe TRAVEL OUTSIDE OF THE [place] IN LAST 30 DAYS: No - Related Data Allergies/Adverse Reactions: adhesive tape [Adhesive Tape] Allergy (Severe, Verified 07/16/20 09:05) Generalized Itching haloperidol [From Haldol] Allergy (Severe, Verified 07/16/20 09:05) "Panic attack" prochlorperazine maleate [From Compazine] Allergy (Severe, Verified 07/16/20 09:05) Shortness of breath latex [Latex] Allergy (Intermediate, Verified 07/16/20 09:05) Hives lorazepam [From Ativan] Allergy (Mild, Verified 08/26/20 21:29) morphine Adverse Reaction (Severe, Verified 07/16/20 09:05) ? metoclopramide HCl [From Reglan] Adverse Reaction (Intermediate, Verified 07/16/20 09:05) "spazed out" Past Medical History - Social History Smoking Status: Unknown if Ever Smoked Family History: None, Reviewed & Not Pertinent - Past Medical History Cardiac Medical History: Reports: Hx Hypercholesterolemia, Hx Hypertension Denies: Hx Coronary Artery Disease, Hx Heart Attack Pulmonary Medical History: Denies: Hx Asthma, Hx Bronchitis, Hx COPD, Hx Pneumonia Neurological Medical History: Reports: Hx Cerebrovascular Accident, Hx Migraine. Denies: Hx Seizures Endocrine Medical History: Reports: Hx Diabetes Mellitus Type 2 Renal/ Medical History: Denies: Hx Peritoneal Dialysis GI Medical History: Musculoskeletal Medical History: Reports Hx Arthritis - B/L WRIST Psychiatric Medical History: Reports: Hx Depression Infectious Medical History: Past Surgical History: Reports: Hx Abdominal Surgery - , Hx Appendectomy, Hx Bowel Surgery, Hx Section, Hx Cholecystectomy, Hx Hysterectomy - tubes removed, novasure, Hx Orthopedic Surgery - carpal tunnel surgery, Hx Tonsillectomy, Hx Tubal Ligation. Denies: Hx Pacemaker - Immunizations Immunizations up to date: Yes Hx Diphtheria, Pertussis, Tetanus Vaccination: Yes Physical Exam - Vital signs Vitals: Temp Pulse Resp BP Pulse Ox 98.4 F 110 H 24 H 152/80 H 99 09/24/20 15:50 09/24/20 15:50 09/24/20 15:50 09/24/20 15:50 09/24/20 15:50 Course - Re-evaluation Re-evalutation: 09/24/20 17:10 Patient feels much better. Speech is much clearer. No angioedema no stridor no wheezing. We will continue to monitor 09/24/20 18:27 And has had no recurrence of urticaria angioedema difficulty breathing or swallowing. Voice is clear. Lungs are clear. Patient wishes to go home. She is aware that we would like to continue to observe her for a longer period but she states that she needs to eat dinner and take her insulin. She states she will return if symptoms worsen - Vital Signs Vital signs: Temp Pulse Resp BP Pulse Ox 98.4 F 110 H 24 H 152/80 H 100 09/24/20 15:50 09/24/20 15:50 09/24/20 15:50 09/24/20 15:50 09/24/20 16:21 Critical Care Note - Critical Care Note Total time excluding time spent on procedures (mins): 35 - acute allergic reaction requiring epinephrine, monitoring Discharge - Discharge Clinical Impression: Allergic reaction Qualifiers: Encounter type: initial encounter Qualified Code(s): T78.40XA - Allergy, unspecified, initial encounter Condition: Stable Disposition: HOME, SELF-CARE Instructions: Acute Allergic Reaction ([facility]) Additional Instructions: 1. take the medications as prescribed 2. take Benadryl 25-50 mg three times daily for 3-4 days 3. follow up recheck with PCP for further evaluation and treatment, call for appt. 4. return for any shortness of breath or worsening rash or condition 5. Use the Epipen if needed for any shortness of breath, difficulty swallowing or worsening condition to buy time to get to an ER or call EMS for further treatment and evaluation 6. Please be aware that prednisone will elevate your blood sugars Prescriptions: Prednisone [Deltasone 20 mg Tablet] 2 tab PO DAILY 5 Days #10 tablet Epinephrine [Epipen] 0.3 mg IJ ONCE PRN #1 auto.injct PRN Reason: Famotidine [Pepcid 20 mg Tablet] 20 mg PO BID #12 tablet Referrals: MAGDI LAIRD, COUNTY TAX ASSESSOR, FISH RECEIVER-C [NO LOCAL MD] - Follow up as needed
[2020-09-24] MEDS ORDERED: EPINEPHRINE INJ/PF 1 MG/1 ML AMPULE SUBCUT ONE (16:05)
[2020-09-24 18:40] VITALS: BP 142/82
== END 2020-09-24 18:38 | disposition home or self-care (01) ==
LOC: ER 15:48
DX: R09.89 Other specified symptoms and signs involving the circulatory and respiratory systems (principal); L29.9 Pruritus, unspecified; R21 Rash and other nonspecific skin eruption; T78.40XA Allergy, unspecified, initial encounter; E11.9 Type 2 diabetes mellitus without complications; I10 Essential (primary) hypertension; E66.9 Obesity, unspecified; Z91.040 Latex allergy status; Z88.6 Allergy status to analgesic agent
CPT/HCPCS: 99284; 96372; 96374; 96375; J1200; J0171; J2930; S0028

== ENCOUNTER 2020-09-30 09:20 | Emergency (ER) | payer MEDICAID ==
[2020-09-30] MEDS ORDERED: NORMAL SALINE 1000 ML 1,000 ML IV ONE (10:38)
[2020-09-30] MEDS ORDERED: ONDANSETRON 4 MG TAB.RAPDIS PO ONE (10:38)
--- NOTE | 2020-09-30 10:42 | ER Document Report ---
ED Medical Screen (RME) - General Chief Complaint: Nausea Stated Complaint: NAUSEA Time Seen by Provider: 09/30/20 10:35 Primary Care Provider: EVELYN PAULA MD [Primary Care Provider] - Follow up as needed Mode of Arrival: Ambulatory Information source: Patient Notes: 40-year-old female presented to ED for nausea and vomiting. She is a diabetic and takes Ozempic and they doubled the dose today. She states within 30 minutes after taking the medicine she started throwing up. She states she called her primary care doctor and they told her to come to the emergency room to get examined and to get medications to stop the nausea and vomiting. Her nausea and vomiting is due to the medication she took. Patient is alert oriented respirations regular nonlabored speaking in full sentences. I have ordered her some Zofran IV fluids as well as blood in urine. I have greeted and performed a rapid initial assessment of this patient. A comprehensive ED assessment and evaluation of the patient, analysis of test results and completion of medical decision making process will be conducted by an additional ED providers. TRAVEL OUTSIDE OF THE [place] IN LAST 30 DAYS: No - Related Data Allergies/Adverse Reactions: adhesive tape [Adhesive Tape] Allergy (Severe, Verified 09/30/20 10:31) Generalized Itching haloperidol [From Haldol] Allergy (Severe, Verified 09/30/20 10:31) "Panic attack" prochlorperazine maleate [From Compazine] Allergy (Severe, Verified 09/30/20 10:31) Shortness of breath latex [Latex] Allergy (Intermediate, Verified 09/30/20 10:31) Hives lorazepam [From Ativan] Allergy (Mild, Verified 09/30/20 10:31) morphine Adverse Reaction (Severe, Verified 09/30/20 10:31) ? metoclopramide HCl [From Reglan] Adverse Reaction (Intermediate, Verified 09/30/20 10:31) "spazed out" Past Medical History - Past Medical History Cardiac Medical History: Reports: Hx Hypercholesterolemia, Hx Hypertension Denies: Hx Coronary Artery Disease, Hx Heart Attack Pulmonary Medical History: Denies: Hx Asthma, Hx Bronchitis, Hx COPD, Hx Pneumonia Neurological Medical History: Reports: Hx Cerebrovascular Accident, Hx Migraine. Denies: Hx Seizures Endocrine Medical History: Reports: Hx Diabetes Mellitus Type 2 Renal/ Medical History: Denies: Hx Peritoneal Dialysis GI Medical History: Musculoskeltal Medical History: Reports Hx Arthritis - B/L WRIST Psychiatric Medical History: Reports: Hx Depression Infectious Medical History: Past Surgical History: Reports: Hx Abdominal Surgery - , Hx Appendectomy, Hx Bowel Surgery, Hx Section, Hx Cholecystectomy, Hx Hysterectomy - tubes removed, novasure, Hx Orthopedic Surgery - carpal tunnel surgery, Hx Tonsillectomy, Hx Tubal Ligation. Denies: Hx Pacemaker - Immunizations Immunizations up to date: Yes Hx Diphtheria, Pertussis, Tetanus Vaccination: Yes Physical Exam - Vital signs Vitals: Temp Pulse Resp BP Pulse Ox 98.8 F 90 20 137/79 H 98 09/30/20 09:41 09/30/20 09:41 09/30/20 09:41 09/30/20 09:41 09/30/20 09:41 Course - Vital Signs Vital signs: Temp Pulse Resp BP Pulse Ox 98.8 F 90 20 137/79 H 98 09/30/20 09:41 09/30/20 09:41 09/30/20 09:41 09/30/20 09:41 09/30/20 09:41 Doctor's Discharge - Discharge Referrals: EVELYN PAULA MD [Primary Care Provider] - Follow up as needed
[2020-09-30 11:31] LABS: APPEARANCE,URINE CLEAR; BILIRUBIN,URINE NEGATIVE (NEGATIVE); COLOR,URINE YELLOW; GLUCOSE, URINE 50 mg/dL (NEGATIVE); KETONES,URINE NEGATIVE (NEGATIVE); LEUKOCYTE ESTERASE,URINE NEGATIVE (NEGATIVE); NITRITE,URINE NEGATIVE (NEGATIVE); PROTEIN,URINE NEGATIVE (NEGATIVE); URINE SPECIFIC GRAVITY 1.014; UROBILINOGEN,URINE NEGATIVE mg/dL (<2.0)
[2020-09-30 12:14] LABS: ABSOLUTE EOSINOPHILS # (AUTO) 0.1 10^3/uL (0.0-0.6); ABSOLUTE LYMPHOCYTES (AUTO) 1.1 10^3/uL (0.5-4.7); ABSOLUTE MONOCYTES (AUTO) 0.3 10^3/uL (0.1-1.4); BASOPHILS % (AUTO) 0.3 % (0-2); EOSINOPHILS % (AUTO) 0.9 % (0-6); HEMATOCRIT 39.8 % (36.0-47.0); HEMOGLOBIN 13.3 g/dL (12.0-15.5); LYMPHOCYTES % (AUTO) 11.5 % (13-45); MEAN CORPUSCULAR HEMOGLOBIN 27.9 pg (27.0-33.4); MEAN CORPUSCULAR HGB CONC 33.4 g/dL (32.0-36.0); MEAN CORPUSCULAR VOLUME 83 fl (80-97); MONOCYTES % (AUTO) 3.2 % (3-13); PLATELET COUNT 132 10^3/uL (150-450); RED BLOOD COUNT 4.78 10^6/uL (3.72-5.28); RED CELL DISTRIBUTION WIDTH 14.4 % (11.5-14.0); SEGMENTED NEUTROPHILS % (AUTO) 84.1 % (42-78); TOTAL CELLS COUNTED % (AUTO) 100 %; WHITE BLOOD COUNT 9.6 10^3/uL (4.0-10.5)
[2020-09-30 12:40] LABS: ALBUMIN 3.8 g/dL (3.5-5.0); ALKALINE PHOSPHATASE 107 U/L (38-126); ANION GAP 9 (5-19); ASPARTATE AMINO TRANSFERASE 48 U/L (14-36); BILIRUBIN,DIRECT 0.1 mg/dL (0.0-0.4); BILIRUBIN,TOTAL 0.3 mg/dL (0.2-1.3); BLOOD UREA NITROGEN 20 mg/dL (7-20); CALCIUM 9.3 mg/dL (8.4-10.2); CARBON DIOXIDE 30 mmol/L (22-30); CHLORIDE 97 mmol/L (98-107); GLUCOSE 186 mg/dL (75-110); POTASSIUM 3.8 mmol/L (3.6-5.0); TOTAL PROTEIN 6.3 g/dL (6.3-8.2)
--- NOTE | 2020-09-30 13:13 | ER Document Report ---
ED General - General Chief Complaint: Nausea/Vomiting Stated Complaint: NAUSEA Time Seen by Provider: 09/30/20 10:35 Primary Care Provider: EVELYN PAULA MD [Primary Care Provider] - Follow up as needed Mode of Arrival: Ambulatory TRAVEL OUTSIDE OF THE [place] IN LAST 30 DAYS: No - HPI Notes: Chief complaint: Nausea and vomiting History of present illness: 40-year-old female presented to ED for nausea and vomiting. She is a diabetic and takes Ozempic. Her physician doubled the dose today. She states within 30 minutes after taking the medicine she started vomiting and thereafter vomited about 6 times.. She spoke with her her primary care doctor and was advised to come to the ED. No abdominal pain, fever, chills or dysuria. - Related Data Allergies/Adverse Reactions: adhesive tape [Adhesive Tape] Allergy (Severe, Verified 09/30/20 10:31) Generalized Itching haloperidol [From Haldol] Allergy (Severe, Verified 09/30/20 10:31) "Panic attack" prochlorperazine maleate [From Compazine] Allergy (Severe, Verified 09/30/20 10:31) Shortness of breath latex [Latex] Allergy (Intermediate, Verified 09/30/20 10:31) Hives lorazepam [From Ativan] Allergy (Mild, Verified 09/30/20 10:31) morphine Adverse Reaction (Severe, Verified 09/30/20 10:31) ? metoclopramide HCl [From Reglan] Adverse Reaction (Intermediate, Verified 09/30/20 10:31) "spazed out" Past Medical History - General Information source: Patient - Social History Smoking Status: Former Smoker Chew tobacco use (# tins/day): No Frequency of alcohol use: None Drug Abuse: None Family History: None, Reviewed & Not Pertinent Patient has homicidal ideation: No - Past Medical History Cardiac Medical History: Reports: Hx Hypercholesterolemia, Hx Hypertension Denies: Hx Coronary Artery Disease, Hx Heart Attack Pulmonary Medical History: Denies: Hx Asthma, Hx Bronchitis, Hx COPD, Hx Pneumonia Neurological Medical History: Reports: Hx Cerebrovascular Accident, Hx Migraine. Denies: Hx Seizures Endocrine Medical History: Reports: Hx Diabetes Mellitus Type 2 Renal/ Medical History: Denies: Hx Peritoneal Dialysis GI Medical History: Musculoskeletal Medical History: Reports Hx Arthritis - B/L WRIST Psychiatric Medical History: Reports: Hx Depression Infectious Medical History: Past Surgical History: Reports: Hx Abdominal Surgery - , Hx Append ectomy, Hx Bowel Surgery, Hx Section, Hx Cholecystectomy, Hx Hysterectomy - tubes removed, novasure, Hx Orthopedic Surgery - carpal tunnel surgery, Hx Tonsillectomy, Hx Tubal Ligation. Denies: Hx Pacemaker - Immunizations Immunizations up to date: Yes Hx Diphtheria, Pertussis, Tetanus Vaccination: Yes Review of Systems - Review of Systems Notes: Constitutional: Negative for fever. HENT: Negative for sore throat. Eyes: Negative for visual changes. Cardiovascular: Negative for chest pain. Respiratory: Negative for shortness of breath. Gastrointestinal: As per HPI. Genitourinary: Negative for dysuria. Musculoskeletal: Negative for back pain. Skin: Negative for rash. Neurological: Negative for headaches, weakness or numbness. 10 point ROS negative except as marked above and in HPI. Physical Exam - Vital signs Vitals: Temp Pulse Resp BP Pulse Ox 98.8 F 90 20 137/79 H 98 09/30/20 09:41 09/30/20 09:41 09/30/20 09:41 09/30/20 09:41 09/30/20 09:41 - Notes Notes: GENERAL: Obese middle-aged female appearing in no acute distress. SKIN: Good turgor. Multiple chronic excoriations of both forearms which she attributes to scratching. HEAD: Normocephalic atraumatic. EYES: PERRLA. EOMI. Conjunctivae and sclerae clear. EARS: CANALS AND TMS CLEAR. NOSE: CLEAR. MOUTH: Moist mucosa. Good dentition. No stridor or edema. No drooling. NECK: Supple. No masses or thyromegaly. No adenopathy. Carotids 2+ without bruits. No JVD. BACK: Symmetrical without tenderness. CHEST: Respirations unlabored. Breath sounds clear and symmetrical. HEART: Regular rhythm. No murmur gallop or rub. ABDOMEN: Obese. Soft nontender without masses, organomegaly or rebound. Bowel sounds normally active. No bruits. GENITALIA: Deferred. EXTREMITIES: No edema. No calf tenderness. Cap refill less than 1.5 seconds. Dorsalis pedis and posterior tibial pulses 3+ and symmetrical. NEUROLOGICAL: GCS 15. Alert and oriented x3. Normal gait. Fluent speech. Cranial nerves II through XII intact. Sensorimotor and cerebellar normal. Normal tone. PSYCHIATRIC: Appropriate affect. Course - Re-evaluation Re-evalutation: 09/30/20 13:15 Patient received a liter of normal saline IV and 4 mg of Zofran IV. Her nausea and vomiting resolved rapidly. She subsequently tolerated p.o. fluids without any difficulty. Lab work is remarkable for blood sugar of 180 which she says is actually "good for her". She is going to be discharged with prescription for Zofran and instructions not to take anymore Ozempic. She will need to follow-up with her doctor within the next 2 to 3 days. Findings, clinical impression and plan of treatment have been discussed with patient/family. Understanding of current findings and recommendations has been acknowledged by them and there is agreement regarding disposition and follow-up. - Vital Signs Vital signs: Temp Pulse Resp BP Pulse Ox 98.8 F 90 20 137/79 H 98 09/30/20 09:41 09/30/20 09:41 09/30/20 09:41 09/30/20 09:41 09/30/20 09:41 - Laboratory Result Diagrams: 09/30/20 11:39 09/30/20 11:39 Laboratory results interpreted by me: 09/30/20 09/30/20 09/30/20 10:46 11:39 11:39 RDW 14.4 H Plt Count 132 L Lymph % (Auto) 11.5 L Seg Neutrophils % 84.1 H Sodium 136.4 L Chloride 97 L Creatinine 0.45 L Glucose 186 H AST 48 H Urine Glucose (UA) 50 H Discharge - Discharge Clinical Impression: Adverse reaction to Ozempic, Diabetes 1.5, managed as type 1 Vomiting Qualifiers: Vomiting type: unspecified Vomiting Intractability: non-intractable Nausea presence: with nausea Qualified Code(s): R11.2 - Nausea with vomiting, un specified Condition: Stable Disposition: HOME, SELF-CARE Additional Instructions: Discontinue Ozempic. Take Zofran as needed for nausea. Increase oral fluids. Follow-up with your doctor within the next 2 to 3 days. Return here as needed for new or worsening symptoms: Pain that is worsening or unimproved Uncontrolled vomiting High fever or shaking chills Overall worsening Prescriptions: Ondansetron [Zofran Odt 4 mg Tablet] 1 - 2 tab PO Q4HP PRN #10 tab.rapdis PRN Reason: Referrals: EVELYN PAULA MD [Primary Care Provider] - Follow up as needed
[2020-09-30 13:41] VITALS: BP 135/76
== END 2020-09-30 13:42 | disposition home or self-care (01) ==
LOC: ER 09:20
DX: R11.2 Nausea with vomiting, unspecified (principal); T38.3X5A Adverse effect of insulin and oral hypoglycemic [antidiabetic] drugs, initial encounter; S50.812A Abrasion of left forearm, initial encounter; S50.811A Abrasion of right forearm, initial encounter; X58.XXXA Exposure to other specified factors, initial encounter; I10 Essential (primary) hypertension; E13.9 Other specified diabetes mellitus without complications; Z79.84 Long term (current) use of oral hypoglycemic drugs; Z90.49 Acquired absence of other specified parts of digestive tract; Z91.048 Other nonmedicinal substance allergy status; Z88.8 Allergy status to other drugs, medicaments and biological substances; Z91.040 Latex allergy status; Z87.891 Personal history of nicotine dependence
CPT/HCPCS: 99284; 96360; 36415; 84703; 85025; 80053; 81001; S0119; J7030

== ENCOUNTER 2020-11-23 10:58 | Emergency (ER) | payer MEDICAID ==
--- NOTE | 2020-11-23 12:54 | ER Document Report ---
ED Medical Screen (RME) - General Chief Complaint: Cough Stated Complaint: COUGH,VOMITING,DIARRHEA Time Seen by Provider: 11/23/20 12:49 Primary Care Provider: EVELYN PAULA MD [Primary Care Provider] - Follow up as needed Mode of Arrival: Ambulatory Information source: Patient Notes: 40-year-old female presents to ED for complaint of body aches cough congestion headache x2 days. She states she did have a kidney infection and it is not getting any better either. She is alert oriented respirations regular nonlabored speaking in full sentences. She states she has not had fevers yet but she is sure they are coming. She does not smoke drink or use any illicit drugs. I have ordered blood urine strep flu Covid and chest x-ray. I have greeted and performed a rapid initial assessment of this patient. A comprehensive ED assessment and evaluation of the patient, analysis of test results and completion of medical decision making process will be conducted by an additional ED providers. TRAVEL OUTSIDE OF THE [place] IN LAST 30 DAYS: No - Related Data Allergies/Adverse Reactions: adhesive tape [Adhesive Tape] Allergy (Severe, Verified 11/23/20 12:46) Generalized Itching haloperidol [From Haldol] Allergy (Severe, Verified 11/23/20 12:46) "Panic attack" prochlorperazine maleate [From Compazine] Allergy (Severe, Verified 11/23/20 12:46) Shortness of breath latex [Latex] Allergy (Intermediate, Verified 11/23/20 12:46) Hives lorazepam [From Ativan] Allergy (Mild, Verified 11/23/20 12:46) morphine Adverse Reaction (Severe, Verified 11/23/20 12:46) ? metoclopramide HCl [From Reglan] Adverse Reaction (Intermediate, Verified 11/23/20 12:46) "spazed out" Past Medical History - Social History Chew tobacco use (# tins/day): No Frequency of alcohol use: None Drug Abuse: None - Past Medical History Cardiac Medical History: Reports: Hx Hypercholesterolemia, Hx Hypertension Denies: Hx Coronary Artery Disease, Hx Heart Attack Pulmonary Medical History: Denies: Hx Asthma, Hx Bronchitis, Hx COPD, Hx Pneumonia Neurological Medical History: Reports: Hx Cerebrovascular Accident, Hx Migraine. Denies: Hx Seizures Endocrine Medical History: Reports: Hx Diabetes Mellitus Type 2 Renal/ Medical History: Denies: Hx Peritoneal Dialysis GI Medical History: Musculoskeltal Medical History: Reports Hx Arthritis - B/L WRIST Psychiatric Medical History: Reports: Hx Depression Infectious Medical History: Past Surgical History: Reports: Hx Abdominal Surgery - , Hx Appendectomy, Hx Bowel Surgery, Hx Section, Hx Cholecystectomy, Hx Hysterectomy - tubes removed, novasure, Hx Orthopedic Surgery - carpal tunnel surgery, Hx Tonsillectomy, Hx Tubal Ligation. Denies: Hx Pacemaker - Immunizations Immunizations up to date: Yes Hx Diphtheria, Pertussis, Tetanus Vaccination: Yes Physical Exam - Vital signs Vitals: Temp Pulse Resp BP Pulse Ox 98.2 F 89 20 142/74 H 98 11/23/20 11:05 11/23/20 11:05 11/23/20 11:05 11/23/20 11:05 11/23/20 11:05 Course - Vital Signs Vital signs: Temp Pulse Resp BP Pulse Ox 98.2 F 89 20 142/74 H 98 11/23/20 11:05 11/23/20 11:05 11/23/20 11:05 11/23/20 11:05 11/23/20 11:05 Doctor's Discharge - Discharge Referrals: EVELYN PAULA MD [Primary Care Provider] - Follow up as needed
[2020-11-23 13:34] LABS: ABSOLUTE BASOPHILS # (AUTO) 0.1 10^3/uL (0.0-0.2); ABSOLUTE EOSINOPHILS # (AUTO) 0.2 10^3/uL (0.0-0.6); ABSOLUTE MONOCYTES (AUTO) 0.5 10^3/uL (0.1-1.4); ABSOLUTE NEUT (AUTO) 7.4 10^3/uL (1.7-8.2); BASOPHILS % (AUTO) 1.1 % (0-2); EOSINOPHILS % (AUTO) 1.9 % (0-6); HEMATOCRIT 43.1 % (36.0-47.0); HEMOGLOBIN 14.3 g/dL (12.0-15.5); LYMPHOCYTES % (AUTO) 26.7 % (13-45); MEAN CORPUSCULAR HEMOGLOBIN 27.7 pg (27.0-33.4); MEAN CORPUSCULAR HGB CONC 33.1 g/dL (32.0-36.0); MEAN CORPUSCULAR VOLUME 84 fl (80-97); MONOCYTES % (AUTO) 4.6 % (3-13); PLATELET COUNT 169 10^3/uL (150-450); RED BLOOD COUNT 5.16 10^6/uL (3.72-5.28); RED CELL DISTRIBUTION WIDTH 15.2 % (11.5-14.0); SEGMENTED NEUTROPHILS % (AUTO) 65.7 % (42-78); TOTAL CELLS COUNTED % (AUTO) 100 %; WHITE BLOOD COUNT 11.2 10^3/uL (4.0-10.5)
[2020-11-23 13:35] LABS: APPEARANCE,URINE CLEAR; BILIRUBIN,URINE NEGATIVE (NEGATIVE); COLOR,URINE YELLOW; GLUCOSE, URINE NEGATIVE (NEGATIVE); KETONES,URINE NEGATIVE (NEGATIVE); LEUKOCYTE ESTERASE,URINE NEGATIVE (NEGATIVE); NITRITE,URINE NEGATIVE (NEGATIVE); PROTEIN,URINE NEGATIVE (NEGATIVE); URINE SPECIFIC GRAVITY 1.021; UROBILINOGEN,URINE NEGATIVE mg/dL (<2.0)
[2020-11-23 13:50] LABS: ALBUMIN 4.3 g/dL (3.5-5.0); ALKALINE PHOSPHATASE 124 U/L (38-126); ANION GAP 10 (5-19); ASPARTATE AMINO TRANSFERASE 59 U/L (14-36); BILIRUBIN,DIRECT 0.2 mg/dL (0.0-0.4); BILIRUBIN,TOTAL 0.4 mg/dL (0.2-1.3); BLOOD UREA NITROGEN 15 mg/dL (7-20); CALCIUM 10.1 mg/dL (8.4-10.2); CARBON DIOXIDE 30 mmol/L (22-30); CHLORIDE 98 mmol/L (98-107); GLUCOSE 104 mg/dL (75-110); POTASSIUM 3.8 mmol/L (3.6-5.0); TOTAL PROTEIN 7.5 g/dL (6.3-8.2)
[2020-11-23 14:05] LABS: A TYPE INFLUENZA AG NEGATIVE (NEGATIVE); B INFLUENZA AG NEGATIVE (NEGATIVE)
--- NOTE | 2020-11-23 16:32 | RADIOLOGY REPORT (SQ) ---
EXAM DESCRIPTION: CHEST SINGLE VIEW IMAGES COMPLETED DATE/TIME: 11/23/2020 2:29 pm REASON FOR STUDY: Cough congestion body aches COMPARISON: 08/26/2020 EXAM PARAMETERS: NUMBER OF VIEWS: One view. TECHNIQUE: Single frontal radiographic view of the chest acquired. RADIATION DOSE: NA LIMITATIONS: None. FINDINGS: LUNGS AND PLEURA: No opacities, masses or pneumothorax. No pleural effusion. MEDIASTINUM AND HILAR STRUCTURES: No masses. Contour normal. HEART AND VASCULAR STRUCTURES: Heart normal in size. Normal vasculature. BONES: No acute findings. HARDWARE: None in the chest. OTHER: No other significant finding. IMPRESSION: NO ACUTE RADIOGRAPHIC FINDING IN THE CHEST. TECHNICAL DOCUMENTATION: JOB ID: [id number] 2010 [employer]- All Rights Reserved Reading location - IP/workstation name: [email or web address]
[2020-11-23] MEDS ORDERED: FENTANYL CITRATE INJ/PF 100 MCG/2 ML AMPUL IM ONE (19:41)
[2020-11-23] MEDS ORDERED: ONDANSETRON ODT 4 MG TAB (6 TAB/ER DISP) PO PRN (19:41)
[2020-11-23] MEDS ORDERED: ONDANSETRON HCL INJ/PF 4 MG/2 ML SDV IV ONE (19:41)
--- NOTE | 2020-11-23 20:43 | ER Document Report ---
Entered by MAAME SAINZ SCRIBE 11/23/201939 Acting as scribe for:BRODIE JOHNSON, DO ED General - General Chief Complaint: Cough Stated Complaint: COUGH,VOMITING,DIARRHEA Time Seen by Provider: 11/23/20 12:49 Primary Care Provider: EVELYN PAULA MD [NO LOCAL MD] - Follow up as needed Mode of Arrival: Ambulatory Information source: Patient Notes: This 40 year old female patient with history of HTN, HLD, and DM, presents to the emergency department today with complaints of a non-productive cough, body aches, and back pain R>L. Patient states she has been treating a kidney infection for the last week. Patient reports history of DM and blood sugar has been normal when checked at home. TRAVEL OUTSIDE OF THE [place] IN LAST 30 DAYS: No - Related Data Allergies/Adverse Reactions: adhesive tape [Adhesive Tape] Allergy (Severe, Verified 11/23/20 12:46) Generalized Itching haloperidol [From Haldol] Allergy (Severe, Verified 11/23/20 12:46) "Panic attack" prochlorperazine maleate [From Compazine] Allergy (Severe, Verified 11/23/20 12:46) Shortness of breath latex [Latex] Allergy (Intermediate, Verified 11/23/20 12:46) Hives lorazepam [From Ativan] Allergy (Mild, Verified 11/23/20 12:46) morphine Adverse Reaction (Severe, Verified 11/23/20 12:46) ? metoclopramide HCl [From Reglan] Adverse Reaction (Intermediate, Verified 11/23/20 12:46) "spazed out" Past Medical History - General Information source: Patient - Social History Smoking Status: Never Smoker Cigarette use (# per day): No Chew tobacco use (# tins/day): No Frequency of alcohol use: None Drug Abuse: None Family History: None, Reviewed & Not Pertinent - Past Medical History Cardiac Medical History: Reports: Hx Hypercholesterolemia, Hx Hypertension Pulmonary Medical History: Neurological Medical History: Reports: Hx Cerebrovascular Accident, Hx Migraine Endocrine Medical History: Reports: Hx Diabetes Mellitus Type 2 GI Medical History: Musculoskeletal Medical History: Reports Hx Arthritis - B/L WRIST Psychiatric Medical History: Reports: Hx Depression Infectious Medical History: Past Surgical History: Reports: Hx Abdominal Surgery - , Hx Appendectomy, Hx Bowel Surgery, Hx Section, Hx Cholecystectomy, Hx Hysterectomy - tubes removed, novasure, Hx Orthopedic Surgery - carpal tunnel surgery, Hx Tonsillectomy, Hx Tubal Ligation - Immunizations Immunizations up to date: Yes Hx Diphtheria, Pertussis, Tetanus Vaccination: Yes Review of Systems - Review of Systems Constitutional: See HPI, Other - body aches, Recent illness EENT: No symptoms reported Cardiovascular: No symptoms reported Respiratory: See HPI, Cough. denies: Sputum Gastrointestinal: No symptoms reported Genitourinary: No symptoms reported Female Genitourinary: No symptoms reported Musculoskeletal: See HPI, Back pain - R>L Skin: No symptoms reported Hematologic/Lymphatic: No symptoms reported Neurological/Psychological: No symptoms reported -: Yes All other systems reviewed and negative Physical Exam - Vital signs Vitals: Temp Pulse Resp BP Pulse Ox 98.2 F 89 20 142/74 H 98 11/23/20 11:05 11/23/20 11:05 11/23/20 11:05 11/23/20 11:05 11/23/20 11:05 - General General appearance: Appears well, Alert - HEENT Head: Normocephalic, Atraumatic Eyes: Normal Pupils: PERRL - Respiratory Respiratory status: No respiratory distress Chest status: Nontender Breath sounds: Normal Chest palpation: Normal - Cardiovascular Rhythm: Regular Heart sounds: Normal auscultation Murmur: No - Abdominal Inspection: Morbidly Obese Distension: No distension Bowel sounds: Normal Tenderness: Nontender - Back Notes: Right CVA tenderness with palpation. Tenderness with palpation to the right paraspinal flank region. - Extremities General upper extremity: Normal inspection. No: Edema General lower extremity: Normal inspection. No: Edema - Neurological Neuro grossly intact: Yes Cognition: Normal Orientation: AAOx4 [place] Coma Scale Eye Opening: Spontaneous [place] Coma Scale Verbal: Oriented [place] Coma Scale Motor: Obeys Commands [place] Coma Scale Total: 15 Speech: Normal Sensory: Normal - Psychological Associated symptoms: Normal affect, Normal mood - Skin Skin Temperature: Warm Skin Moisture: Dry Skin Color: Normal Course - Re-evaluation Re-evalutation: 11/23/20 20:38 MDM Morbidly obese female wiht dm and recently treated for uti derrick taverasro feels she is worse and having right sided back pain. Pain is a bit worse and having frontal headache like her usual migraine. No fever or chills. Workup here is reassuring and argues against UTI. I reviewed this with her. She expressed understanding. She currently takes 15 mg oxycodone 3 times daily. She also would like something here for headache. She describes a usual headache for her. - Vital Signs Vital signs: Temp Pulse Resp BP Pulse Ox 99.0 F 96 16 141/83 H 100 11/23/20 21:25 11/23/20 21:05 11/23/20 21:05 11/23/20 21:05 11/23/20 21:05 - Laboratory Results Result Diagrams: 11/23/20 13:10 11/23/20 13:10 Laboratory Results Interpreted: 11/23/20 11/23/20 13:10 13:10 WBC 11.2 H RDW 15.2 H AST 59 H ALT 38 H Critical Laboratory Results Reviewed: No Critical Results - Radiology Results Critical Radiology Results Reviewed: No Critical Results Discharge - Discharge Clinical Impression: COVID-19 Back pain Qualifiers: Back pain location: low back pain Chronicity: acute Back pain laterality: right Sciatica presence: without sciatica Qualified Code(s): M54.5 - Low back pain Condition: Stable Disposition: HOME, SELF-CARE Instructions: COVID-19 Guidance for Persons Under Investigation, Headache ([facility]) Additional Instructions: See your doctor in follow up. Call them tomorrow. Return here for chest pain, shortness of breath or other problems or concenrs. Referrals: EVELYN PAULA MD [NO LOCAL MD] - Follow up as needed I personally performed the services described in the documentation, reviewed and edited the documentation which was dictated to the scribe in my presence, and it accurately records my words and actions.
[2020-11-23 21:06] VITALS: BP 141/83
== END 2020-11-23 21:10 | disposition home or self-care (01) ==
LOC: ER 10:58
DX: U07.1 COVID-19 (principal); M54.5 Low back pain; R05 Cough; R11.10 Vomiting, unspecified; R19.7 Diarrhea, unspecified; M79.10 Myalgia, unspecified site; M54.9 Dorsalgia, unspecified; Z88.8 Allergy status to other drugs, medicaments and biological substances; I10 Essential (primary) hypertension; E78.5 Hyperlipidemia, unspecified; E11.9 Type 2 diabetes mellitus without complications
CPT/HCPCS: 99284; 96372; 96374; 36415; 87070; 87086; 87880; 85025; 87635; 81025; 80053; 81001; 87804; 71045; J3010; C9803